=== PATIENT | female | born 1960 | race African-American/Black ===

== ENCOUNTER → 2017-01-05 | Outpatient (CLI) | payer BC ==
[~2017-01-05] MED LIST: ALBUAER2; HCTZ
--- NOTE | 2017-01-05 16:45 | MAMMOGRAPHY REPORT ---
BILATERAL DIGITAL SCREENING MAMMOGRAM TOMOSYNTHESIS WITH CAD: 01/05/2017 TECHNIQUE: Breast tomosynthesis in addition to standard 2D mammography was performed. Current study was also evaluated with a Computer Aided Detection (CAD) system. COMPARISON: Comparison is made to exams dated: 01/02/2016 mammogram, 10/22/2014 mammogram, 09/14/2012 mammogram, 09/21/2013 mammogram, 09/29/2011 mammogram - [facility], and 04/30/2009. BREAST COMPOSITION: The tissue of both breasts is heterogeneously dense, which may obscure small ma sses. FINDINGS: No suspicious masses, calcifications, or areas of architectural distortion are noted in e ither breast. There has been no significant interval change compared to prior exams. Bilateral nathaly gn-appearing masses in bilateral benign-appearing calcifications are not significantly changed. Mild architectural distortion seen within the left 12:00 breast appears stable compared to prior exams a nd likely represents postsurgical changes. IMPRESSION: ACR BI-RADS CATEGORY 2: BENIGN There is no mammographic evidence of malignancy. A 1 year screening mammogram is recommended. The p atient will receive written notification of the results. Approximately 10% of breast cancers are not detected with mammography. A negative mammographic repor t should not delay biopsy if a clinically suggestive mass is present. Tara Mayes M.D. ah/:01/05/2017 15:37:50 Preschool Assistant Director: Ruth MAYER)(Elisa), [facility] letter sent: Normal 1/2 BI-RADS Code: ACR BI-RADS Category 2: Benign
== END | disposition home or self-care (01) ==
LOC: C.MAMM 15:01
PROVIDERS: ATTEND Family Medicine
DX: Z12.31 Encounter for screening mammogram for malignant neoplasm of breast (principal)

== ENCOUNTER → 2018-01-06 | Outpatient (CLI) | payer BC ==
--- NOTE | 2018-01-07 14:57 | MAMMOGRAPHY REPORT ---
BILATERAL DIGITAL SCREENING MAMMOGRAM TOMOSYNTHESIS WITH CAD: 01/06/2018 TECHNIQUE: Breast tomosynthesis in addition to standard 2D mammography was performed. Current study was also evaluated with a Computer Aided Detection (CAD) system. COMPARISON: Comparison is made to exams dated: 01/05/2017 mammogram, 01/02/2016 mammogram, 10/22/2014 m ammogram, 09/21/2013 mammogram, 09/14/2012 mammogram, and 09/29/2011 mammogram - [facility]. BREAST COMPOSITION: The tissue of both breasts is heterogeneously dense, which may obscure small mas ses. FINDINGS: No suspicious masses, calcifications, or areas of architectural distortion are noted in ei ther breast. There has been no significant interval change compared to prior exams. Bilateral circum scribed benign-appearing masses and scattered bilateral benign-appearing calcifications are not signi ficantly changed. A linear scar marker denotes a scar on the left upper outer breast. Architectural distortion seen within the left 12:00 to 1:00 breast is stable and compatible with postsurgical yan ges. IMPRESSION: ACR BI-RADS CATEGORY 2: BENIGN There is no mammographic evidence of malignancy. A 1 year screening mammogram is recommended. The pa tient will receive written notification of the results. Approximately 10% of breast cancers are not detected with mammography. A negative mammographic report should not delay biopsy if a clinically suggestive mass is present. Tara Mayes M.D. /:01/06/2018 16:21:11 Core Manager: Dyan MAYER)(Elisa), [facility] letter sent: Normal 1/2 BI-RADS Code: ACR BI-RADS Category 2: Benign
== END | disposition home or self-care (01) ==
LOC: C.MAMM 14:59
PROVIDERS: ATTEND Physician Assistant
DX: Z12.31 Encounter for screening mammogram for malignant neoplasm of breast (principal)

== ENCOUNTER 2022-02-17 08:50 | Observation (INO) ==
--- NOTE | 2022-02-10 15:35 | Anesthesiology Consultation ---
Date of Service February 10, 2022 Assessment & Plan (1) Encounter for pre-operative examination: Chart Review Chart Review: Acceptable Risk for Surgery (pending preop Covid testing results ) and Patient NOT seen in Pre Admission Testing Per nursing assessment 02/10/2022, patient denies any recent travel. No known Covid infection in the past 90 days. Patient is not vaccinated for Covid. No known Covid positive exposures or Covid related symptoms. Preop Covid testing scheduled 02/13/22= will await results -S/P Left knee replacement(01/14/21): SAB at L3-L4, 1 attempt + PNB. No issues per anesthesia post-op progress note. History Surgery Operation Date: 02/17/22 11:10 Proposed Procedures p Right Total Knee Arthroplasty - Enrico Neri MD Height/Weight Height: 5 ft 5.5 in Weight: 106.594 kg Allergies Allergy/AdvReac Type Severity Reaction Status Date / Time almond Allergy Severe Anaphylaxis Verified 02/10/22 15:09 Penicillins AdvReac Intermediate Yeast Verified 02/10/22 15:09 infection (tongue) fiber glass Allergy Mild Rash Uncoded 02/10/22 15:09 Medications Home Medications Medication Instructions Recorded Confirmed Last Taken Wheeled Walker #1 ea 08/02/20 01/30/21 Unknown hydrochlorothiazide 25 mg tablet 25 mg PO QAM 10/16/20 02/10/22 05/03/21 multivitamin 1 tab PO QAM 10/16/20 02/10/22 05/03/21 naproxen 500 mg tablet 500 mg PO BID PRN 10/16/20 02/10/22 05/03/21 08:00 clindamycin HCl 300 mg capsule 600 mg PO ONCE PRN 05/03/21 02/10/22 Unknown Past Medical History Medical History Hypertension Osteoarthritis Prediabetes Stress incontinence Past Family History Family History Other No family history of adverse response to anesthesia Past Surgical History Surgical History H/O removal of cyst Breast History of colonoscopy History of mandibular surgery Lefort I (1988) > no jaw ROM limitations History of tooth extraction History of total knee replacement Left knee replacement (01/14/21): SAB at L3-L4, 1 attempt + PNB. No issues per anesthesia post-op progress note. Hx of lumpectomy Left (benign) Social History Smoking Status: Never smoker Hx Alcohol Use: Yes Alcohol type: beer alcohol intake frequency: a few times a week Hx Substance Use: No substance use type: does not use Lab Results Anesthesia Preop Results Results Anesthesia Widget: WBC 3.26 K/uL (4.8-10.8) L 02/09/22 Hgb 12.2 g/dL (12.0-16.0) 02/09/22 Hct 38.4 % (37-47) 02/09/22 Plt 261 K/uL (130-400) 02/09/22 Na 140 mmol/L (136-145) 02/09/22 K 3.7 mmol/L (3.5-5.1) 02/09/22 Cl 106 mmol/L (98-107) 02/09/22 CO2 27 mmol/L (21-32) 02/09/22 BUN 11 mg/dl (6-23) 02/09/22 Creat 0.81 mg/dl (0.6-1.2) 02/09/22 Glucose Level 92 mg/dl (70-99(Fasting)) 02/09/22 PT 11.2 Seconds (9.0-12.0) 02/09/22 INR 1.1 (0.9-1.1) 02/09/22 HA1c 5.7 % (4.5-5.6) H 02/09/22 Blood Type A Positive 02/09/22 Antibody Screen NEGATIVE 02/09/22 Testing Electrocardiogram Date: 11/04/21 SR with PACs at 83bpm. Otherwise normal EKG per cardio. Chest X-Ray Date: 11/04/21 Findings: + NAD
--- NOTE | 2022-02-14 12:16 | History and Physical Report ---
DATE OF ADMISSION: 02/17/2022 CHIEF COMPLAINT: Persistent right knee pain and discomfort. HISTORY OF PRESENT ILLNESS: The patient is a 61-year-old female who now presents for surgical treatm ent of her right knee. She has got a long history of knee problems and had her left knee replaced ju st a little over a year ago. She has done extremely well from this. She continues to be debilitated by right knee pain. This has been going on for 15+ years. It is global pain. She has a very limit ed walking tolerance to even a block or so. She has been through extensive conservative care, which really did not help at all anymore. She wants to proceed with right knee replacement. PAST MEDICAL HISTORY: Significant for: 1. Hypertension. 2. Obesity with BMI of 39. 3. Osteoarthritis. PAST SURGICAL HISTORY: Includes: 1. Left knee replacement done on 01/14/2021. 2. Cyst removed from her breast. 3. Oral surgery. ALLERGIES: ALMONDS, FIBERGLASS, PENICILLIN, WHICH CAUSES A YEAST INFECTION. CURRENT MEDICATIONS: Include: 1. Hydrochlorothiazide. 2. Naproxen. 3. Multivitamin. 4. Centrum Silver. SOCIAL HISTORY: Significant for a 61-year-old female. Lives in [place]. Two drinks per week. Does not smoke. FAMILY HISTORY: Noncontributory. REVIEW OF SYSTEMS: Negative for diabetes. She is a prediabetic per her report. No chest pain or sh ortness of breath. No history of DVT or PE. No known bleeding problems. PHYSICAL EXAMINATION: GENERAL: Shows a pleasant middle-aged female. Looks to be in reasonably good health. HEENT: Benign. NECK: Supple. No lymphadenopathy. LUNGS: Clear to auscultation. HEART: Regular rate and rhythm. ABDOMEN: Soft, nontender, nondistended. EXTREMITIES: Grossly neurovascularly intact except as follows: Examination of the right knee reveal s the patient walks with a markedly antalgic gait. She limps on this right side. She has got varus alignment to her knee with a varus thrust with weightbearing. She is diffusely tender around the kne e. Range of motion is about 10 degrees short of full extension to 100 degrees of flexion and quite s tiff. No pain with hip motion. Examination of the left knee reveals a well-healed incision. Anatomic alignment. Range of motion 0- 115. X-RAYS: X-rays of the right knee reveal advanced right knee tricompartmental DJD. She has advanced tricompartmental disease with complete destruction of the medial side of her knee with destruction in the medial tibial plateau and tibial femoral subluxation. She has got subchondral sclerosis. Left knee replacement looks to be in good position. ASSESSMENT: A 61-year-old female now a little over a year out from left knee replacement with advanc ed right knee degenerative joint disease. She has failed conservative care. She would like to proce ed with right knee replacement. PLAN: We will take him to the operating room and do right total knee replacement. The risks and addy efits of this procedure were explained to the patient and include, but not limited to DVT, PE, , infection, neurological injury, vascular injury, bleeding problem, pain, limited range of motion, st iffness, failure to relieve her symptoms, incomplete relief of symptoms, need for further surgery in the future, fracture, leg length inequality, nerve palsy, etc. The patient understands and desires t o proceed. Informed consent was obtained. She is planning on using [facility] program. She stopped her Naprosyn preoperatively. We may put some vancomycin in her cement due to her obesity and increased risk for infection. Job ID: [id number]
[~2022-02-17 08:50] MED LIST changes: +ACETAMINOPHEN 500 MG TAB PO SCH; -ALBUAER2; +BUPIVACAINE 0.5 % 5 MG/1 ML PF 10ML VIAL ONE; +BUPIVACAINE LIPOSOME/PF 266 MG, BUPIVACAINE/EPINEPHRINE 50 ML, SODIUM CHLORIDE 0.9% 30 ... INFIL SCH; +FAMOTIDINE 20 MG TAB PO SCH; +GABAPENTIN 600 MG DOSE PO SCH; -HCTZ; +LR 500ML BOLUS, THEN 15ML/HR IV SCH; +LR 60ML/HR IV SCH; +METOCLOPRAMIDE HCL 10 MG TABLET PO SCH; +Scopolamine 1 MG TDSY TD SCH; +TRANEXAMIC ACID 1,000 MG **IV Pre-op IV SCH
[2022-02-17] MEDS ORDERED: fentaNYL citrate 100 MCG/2 ML VIAL ONE (11:01)
[2022-02-17] MEDS ORDERED: ePHEDrine sulfate 50 MG/ML AMP IV PRN (11:01)
[2022-02-17] MEDS ORDERED: ATROPINE SULFATE 0.1 MG/ML 10ML SYR IV PRN (11:01)
[2022-02-17] MEDS ORDERED: MIDAZOLAM HCL 1 MG/ML 2ML VIAL ONE (11:01)
[2022-02-17] MEDS ORDERED: fentaNYL citrate 100 MCG/2 ML VIAL IV PRN (11:01)
[2022-02-17] MEDS ORDERED: ONDANSETRON INJ 2 MG/ML 2 ML VIAL IV PRN ×2 (11:01→14:49)
[2022-02-17] MEDS ORDERED: ceFAZolin 2000MG 2,000 MG/15 ML SYR IV ONE (12:17)
[2022-02-17] MEDS ORDERED: BUPIVACAINE/EPINEPHRINE 0.25% 1:200,000 30 ML VIAL ONE ×2 (12:18→12:19)
[2022-02-17] MEDS ORDERED: SODIUM CHLORIDE 0.9% PF 50 ML VIAL ONE (12:19)
[2022-02-17] MEDS ORDERED: BUPIVACAINE LIPOSOME 1.3% 266 MG/20 ML VIAL ONE (12:19)
--- NOTE | 2022-02-17 12:19 | History & Physical Bridge Note ---
Date of Service February 17, 2022 History & Physical Bridge Note I have examined the patient, reviewed the History & Physical and in the interval since the performance of the History & Physical I have noted the following changes of clinical significance: no changes noted
[2022-02-17] MEDS ORDERED: ceFAZolin 2,000 MG/15 ML IV PUSH IV ONE (12:22)
[2022-02-17] MEDS ORDERED: VANCOMYCIN HCL 1000MG/20ML VIAL ONE (12:52)
[2022-02-17] MEDS ORDERED: LIDOCAINE 2% 2 ML VIAL/AMP(20MG/ML) INFIL ONE (14:14)
[2022-02-17] MEDS ORDERED: PROPOFOL IV EMULSION 10 MG/ML 20 ML VIAL IV ONE (14:14)
[2022-02-17] MEDS ORDERED: ONDANSETRON INJ 2 MG/ML 2 ML VIAL ONE (14:20)
[2022-02-17] MEDS ORDERED: NALOXONE HCL 0.4 MG/1 ML VIAL/CARP IV PRN (14:49)
[2022-02-17] MEDS ORDERED: GLUCOSE 40% GEL 15 GM TUBE PO PRN (14:49)
[2022-02-17] MEDS ORDERED: GLUCAGON FOR INJ 1 MG VIAL SQ PRN (14:49)
[2022-02-17] MEDS ORDERED: diphenhydrAMINE Capsule 25 MG CAP PO PRN (14:49)
[2022-02-17] MEDS ORDERED: GLUCOSE 10 TABS/TUBE PO PRN (14:49)
[2022-02-17] MEDS ORDERED: HYDROmorphone INJ 0.5 MG/0.5 ML SYR IV PRN (14:49)
[2022-02-17] MEDS ORDERED: PHARMACY GLYCEMIC MGMT CONSULT PRN (14:49)
[2022-02-17] MEDS ORDERED: DEXTROSE 50% 50 ML SYRINGE IV PRN (14:49)
[2022-02-17] MEDS ORDERED: METOCLOPRAMIDE HCL INJ 5 MG/ML 2 ML VIAL IV PRN (14:49)
[2022-02-17] MEDS ORDERED: MAGNESIUM HYDROXIDE SUSP 30 ML UDC PO PRN (14:49)
[2022-02-17] MEDS ORDERED: ALUMINUM/MAGNESIUM SUSP 30 ML UDC PO PRN (14:49)
[2022-02-17] MEDS ORDERED: oxyCODONE HCL IR 5 MG TAB (IMMEDIATE RELEASE) PO PRN ×2 (14:49→18:16)
[2022-02-17] MEDS ORDERED: CARBOHYDRATES FOR HYPOGLYCEMIA PO PRN (14:49)
[2022-02-17] MEDS ORDERED: bisacodyL 10 MG SUPP PR PRN (14:49)
--- NOTE | 2022-02-17 15:02 | Operative Report ---
PG Post Operative Report Pre & Post Diagnosis Operation Date: 02/17/22 11:10 Pre-Op Diagnosis: Right Knee Osteoarthritis Post-Op Diagnosis: Right Knee Osteoarthritis I identified the patient and participated in the time-out.: Yes Procedure Operation Date: 02/17/22 11:10 Actual Procedures p Right Total Knee Replacement(Right) - Enrico Neri MD Surgeon Enrico Neri MD Orthotist/Prosthetist Jaziel Colin PA-C Estimated Blood Loss 50 Findings Consistent with Post-Op Diagnosis Operative findings revealed advanced right knee tricompartment DJD with severe degenerative changes grade 4 and erosive changes in all 3 compartments. She had osteophytes in all 3 compartments. She had significant wear of her medial tibial plateau with some destruction of the bone itself. Moderate to large knee joint effusion. Large soft tissue envelope. Fluids 1500 cc Specimens Right knee sent for pathology Anesthesia Type Spinal MAC Complications none Disposition Accompanied Patient To Recovery: No Indications Patient is a 61-year-old female has a long history of bilateral knee pain discomfort. She been through extensive conservative treatment of years which became less successful. She had her left knee replaced a year ago and is done remarkably well but continued be limited by right knee pain. She elected proceed with right total knee arthroplasty. Due to her large size and deformity we did elect to place a stem in her tibia. Due to her diabetes and obesity with use of vancomycin in the cement. Description of Procedure Operative implants consist of: 1. Biomet Vanguard size 65 right posterior stabilized femoral component. 2. Biomet size 71 tibial tray with a 16 x 80 mm stem with 5 mm offset and small cruciate wing. 3. 16mm posterior stabilized polyethylene insert. 4. 31 x 8 all polypatella. Patient was taken the operating, identified, placed on the operating table supine position protectors were properly padded IV antibiotics tried by anesthesia team. Spinal anesthetic and been implemented holding area. Gurrola cath was placed in sterile fashion. A right thigh turn was then placed in the right lower extremities and prepped and draped in usual sterile fashion. The right leg was elevate exsanguinated use exsanguinated with use of an Esmarch in terms playset 350 mmHg. An anterior approach to the right knee was then performed through longitudinal incision centered over the patella. Sharp dissection was got through subcutaneous this down the extensor mechanism. She had very large soft tissue envelope. A medial parapatellar arthrotomy incision was made. Some subperiosteal dissection was carried out medially. Mafenide was resected from each patella tendon. Lateral patellofemoral ligament was released. The patella subluxated laterally and the knee was flexed. The osteophytes were taken off distal femur. Her ACL was absent. The PCL was released from the distal femur and the tibia subluxated anteriorly. The tibial eminence was then resected. I then reamed her tibia up to a size 16. The reaming amena was left in place and the IM cutting guide was placed. The proximal tibial cut was made essentially flush with the most deficient aspect of the more medial tibial plateau. This did take a fairly large piece off laterally. The tibia was then sized to a size 71. The tibia was prepared for a 5 mm offset stem with a small cruciate wing. The tibial tray was assembled and placed in the canal and sent attention was then drawn to the femur. The distal femur examined with a sharp drill. Intramedullary canal was suction. A right 5 degree valgus cutting guide was placed but distal femoral cutting block was pinned in place but distal femoral cut was made to take an additional 3 mm bone off distal femur. The femur was then sized to a size 65. The AP cutting block was pinned parallel to the epicondylar axis which was 4 degrees of external rotation. The anterior neck, anterior chamfer, posterior cut, posterior chamfer cuts were made. The box cutting guide was placed in just slight lateral box cut was made. The knee was flexed. The remnants of the medial and lateral menisci were excised. The osteophytes taken off the posterior aspect of femur. Trial femoral component was placed. I then trialed the knee and the 16mm insert fit most appropriately. It was a slightly more lax in extension than flexion but felt to be acceptable. Attention is then drawn to the patella. The patella was cleaned of all soft tissues. Patella thickness measured 21 mm in thickness was cut down to 14. Was sized to a size 31 patella. The lug holes were drilled for 31 patella. The lateral osteophyte is moved. Patella button was placed and the knee was taken through range of motion. Patella tracked nicely with no thumbs test. Attention drawn to placing permanent components. All trial components were removed. Bone plug was placed in the distal femur limit blood loss. A double batch Palacos G cement was mixed. I did add an additional gram of vancomycin due to her diabetes and obesity. A Biomet size 65 right posterior stabilized femoral component, size 71 tibial tray with a 80 x 16 mm offset stem, 16 mm posterior stabilized polyethylene insert, and a 31 x 8 all polypatella then cemented in place. Knee was brought out into full extension until cement hardened. Final cement check was then performed. Pericapsular tissues were injected with total 100 cc of combination of 20 cc Exparel, 30 cc of normal saline, 50 cc of quarter percent Marcaine with epinephrine. Patient did receive 1 g tranexamic acid. The tourniquet was let down for final tourniquet time of 74 minutes. Hemostasis through the was assured using electrocautery. Extensor mechanism closed with combination 1 PDS suture #1 Vicryl suture in [id number] fashion with extensor mechanism checked found to be intact and subcutaneous tissue then closed with 2 Dexon suture in buried interrupted fashion skin was closed skin hemant. Leg was then cleaned and dried a sterile dressing with Xeroform, 4 x 4's, sterile cast padding, Harlan bandage were applied. Patient then transferred to the recovery room in stable condition. Patient tolerated procedure well and there were no complications. Jaziel Colin, my physician pathologist assistant, was present for the entire procedure. His assistance was essential and required for appropriate patient positioning, prepping and draping, surgical exposure, performing the technical details of the operation, placement the implants, closure of the wound, and placement of the sterile bandage. I attest to the content of the Intraoperative Record and any orders documented therein. Any exceptions are noted below.
--- NOTE | 2022-02-17 15:25 | XRay Report ---
XR knee RT 1 or 2V routine CLINICAL HISTORY: Surgical Post Op TECHNIQUE: 2 views of the right knee were obtained. Comparison: None available at the time of this dictation. FINDINGS: Patient is status post total knee arthroplasty with expected postsurgical changes including soft tiss ue swelling, subcutaneous emphysema, and surgical staple placement. No periarticular lucency or hardw are fracture is seen. Joint spaces are well-preserved. No joint effusion is seen. No soft tissue abno rmality is seen. IMPRESSION: No evidence of acute osseous injury. ACT 112: Negative or not required by law. Electronically signed by: Mihai Echavarria M.D. 02/17/2022 3:23 PM
--- NOTE | 2022-02-17 16:27 | Anesthesiology Progress Note ---
Date of Service February 17, 2022 Anesthesia Post Procedure Vital Signs Vital Signs: Temp Pulse Pulse Resp BP BP Pulse Ox 02/17/22 16:15 73 16 147/93 H 96 02/17/22 16:05 63 14 137/83 97 02/17/22 15:55 64 17 140/77 94 02/17/22 15:45 36.1 C L 69 16 140/81 94 02/17/22 15:35 67 16 145/85 H 96 02/17/22 15:25 76 19 126/82 95 02/17/22 15:15 66 16 130/84 95 02/17/22 15:05 76 18 133/79 92 02/17/22 14:55 77 21 122/75 91 02/17/22 14:49 36.5 C 77 16 117/65 97 02/17/22 09:28 36.7 C 88 20 128/82 99 Transfer of Care Handoff Completed per policy Notes Mental Status: alert / awake / arousable and participated in evaluation Patient Amnestic to Procedure: Yes Nausea / Vomiting: adequately controlled Pain: adequately controlled Airway Patency, RR, SpO2: stable & adequate BP & HR: stable & adequate Hydration State: stable & adequate Anesthetic Complications: no major complications apparent
[2022-02-17] MEDS: SODIUM CHLORIDE 0.9% 1000ML 1,000 ML IV SCH ×3 (17:38→23:13)
[2022-02-17] MEDS: KETOROLAC 30 MG/ML VIAL IV SCH (18:18)
[2022-02-17] MEDS: Scopolamine CHECK PATCH PLACEMENT SCH (18:18)
[2022-02-17] MEDS ORDERED: ONDANSETRON 4 MG OD TAB PO PRN (18:56)
[2022-02-17] MEDS ORDERED: TRANEXAMIC ACID / 0.7% NACL 1,000 MG/100 ML BAG IV SCH (21:00)
[2022-02-17] MEDS ORDERED: SENNA 8.6 MG TAB PO SCH (21:00)
[2022-02-17] MEDS ORDERED: ASPIRIN 81 MG ECTAB PO SCH (21:00)
[2022-02-17] MEDS: ceFAZolin 2000MG 2,000 MG/15 ML SYR IV SCH (21:01)
[2022-02-17] MEDS: ASPIRIN 81 MG ECTAB PO SCH (21:01)
[2022-02-17] MEDS: DOCUSATE SODIUM 100 MG CAP PO SCH (21:02)
[2022-02-17] MEDS: ASCORBIC ACID 500 MG TAB PO SCH (21:02)
[2022-02-17] MEDS: TAPENTADOL HCL ER 50 MG TABCR PO SCH (21:06)
[2022-02-17] MEDS: ACETAMINOPHEN 500 MG TAB PO SCH (23:12)
[2022-02-18] MEDS: KETOROLAC 30 MG/ML VIAL IV SCH ×3 (00:18→11:55)
[2022-02-18] MEDS: Scopolamine CHECK PATCH PLACEMENT SCH ×2 (00:19→08:49)
[2022-02-18] MEDS: ceFAZolin 2000MG 2,000 MG/15 ML SYR IV SCH (05:42)
[2022-02-18] MEDS: SODIUM CHLORIDE 0.9% 1000ML 1,000 ML IV SCH (05:42)
[2022-02-18] MEDS: ACETAMINOPHEN 500 MG TAB PO SCH ×2 (05:43→13:57)
[2022-02-18 07:56] LABS: Hemoglobin 9.6 g/dL (12.0-16.0); Mean Corpuscular Hemoglobin 28.1 pg (25-34); Mean Corpuscular Volume 87.7 fL (80-100); Mean Platelet Volume 11.6 fL (7.4-10.4); Platelet Count 185 K/uL (130-400); RDW Coefficient of Variation 14.8 % (11.5-14.5); RDW Standard Deviation 47.4 fL (36.4-46.3); Red Blood Count 3.42 M/uL (4.2-5.4); White Blood Count 5.62 K/uL (4.8-10.8)
[2022-02-18 08:23] LABS: BUN Creatinine Ratio 21.2 (10-20); Creatinine Clr Calc Pharmacy 90.2 ml/min; Est GFR (African American) 86.3 ml/min; Est GFR (Non-African American) 74.5 ml/min; Potassium 3.8 mmol/L (3.5-5.1)
[2022-02-18] MEDS: ASPIRIN 81 MG ECTAB PO SCH (08:47)
[2022-02-18] MEDS: DOCUSATE SODIUM 100 MG CAP PO SCH (08:47)
[2022-02-18] MEDS: ASCORBIC ACID 500 MG TAB PO SCH (08:48)
[2022-02-18] MEDS: TAPENTADOL HCL ER 50 MG TABCR PO SCH (08:50)
[2022-02-18] MEDS ORDERED: DOCUSATE SODIUM/SENNA 50/8.6MG TAB PO SCH (09:00)
[2022-02-18] MEDS ORDERED: hydroCHLOROthiazide 25 MG TAB PO SCH (09:00)
[2022-02-18] MEDS ORDERED: MULTIVITAMIN TAB PO SCH (09:00)
[2022-02-18] MEDS ORDERED: NON-FORMULARY MEDICATION (Multivitamin Tablet) PO SCH (09:00)
--- NOTE | 2022-02-18 15:24 | Progress Notes ---
DATE OF SERVICE: 02/18/2022. SUBJECTIVE: A 61-year-old female postoperative day 1 from right knee replacement. She is doing pret ty well. She denies any pain, just some soreness. No chest pain or shortness of breath. Therapy we nt well. She is hoping to go home. OBJECTIVE: VITAL SIGNS: Temperature 36.8. Vital signs are stable. GENERAL: Shows a pleasant middle-aged female. She is sitting up in her bedside chair, looks quite c omfortable. LUNGS: Clear to auscultation. HEART: Regular rate and rhythm. ABDOMEN: Soft, nontender, nondistended. EXTREMITIES: Grossly neurovascularly intact except as follows. Examination of the right lower extremity reveals the dressing to be clean, dry and intact. She can d orsiflex and plantarflex her foot appropriately. She is neurologically intact. LABORATORY DATA: Hemoglobin 9.6. Hematocrit 30.0. Electrolytes are stable. ASSESSMENT: A 61-year-old female postoperative day 1 from right knee replacement, doing pretty well. Pain is controlled. She is neurologically intact. PLAN: 1. DVT prophylaxis includes thigh-high TEDs, SCDs, and aspirin twice a day. 2. PT/OT. She can weight bear as tolerated. Right total knee protocol. 3. Pain control, doing well with current pain regimen. 4. Disposition: Plan to discharge to home with some home health later today. Job ID: [id number]
--- NOTE | 2022-02-23 07:49 | Discharge Summary ---
Date of Service February 23, 2022 Discharge Data Procedures Performed Operation Date: 02/17/22 11:10 Actual Procedures p Right Total Knee Replacement(Right) - Enrico Neri MD Hospital Course (1) Status post total right knee replacement: This is a 61 year old patient admitted on 02/17/22 and underwent total knee arthroplasty. She tolerated the procedure well and there were no complications. Transferred to the PACU post op and later to the orthopedic floor for further care. She was given ancef for antibiotic prophylaxis. She was also given FERNANDO stockings, SCDs, and aspirin for DVT prophylaxis. Hemoglobin, hematocrit, and vital signs were monitored during her hospital stay and remained stable. Did not require any blood transfusions. There were no complications during her hospital stay. By post op day #1 the patient was tolerating a diabetic diet, pain was reasonably controlled with oral pain medicine, and she was participating in physical therapy. On post op day #1 the patient was discharged home and set up with home health care. She was given printed discharge instructions including prescriptions for extra strength tylenol, aspirin, toradol, zofran, and oxycod one. Continue physical therapy, weight bearing as tolerated. Continue FERNANDO stockings. Follow up approximately 2 weeks post op or sooner if there are problems or concerns. Coding Level of Care Code None Diagnoses Status post total right knee replacement Z96.651
== END 2022-02-18 16:49 | disposition home health service (06) ==
LOC: PACUINP 08:50 → ASU 08:50 → 3W 17:24
DX: Z91.018 Allergy to other foods; M17.11 Unilateral primary osteoarthritis, right knee; Z79.899 Other long term (current) drug therapy; Z91.048 Other nonmedicinal substance allergy status; I10 Essential (primary) hypertension

== ENCOUNTER 2024-11-20 19:41 | Inpatient (IN) ==
[2024-11-20] MEDS: SODIUM CHLORIDE 0.9% 1,000 ML IV ONE (20:23)
[2024-11-20 21:04] LABS: Albumin Globulin Ratio 0.9 (0.9-2); Albumin Level 3.7 gm/dl (3.4-5.0); BUN Creatinine Ratio 10.5 (10-20); Bilirubin,Total 11.3 mg/dl (0.2-1.0); Calcium 9.3 mg/dl (8.6-10.3); Creatinine Clr Calc Pharmacy 69.7 ml/min; Globulin 4.3 gm/dl (2.5-4.0); Magnesium 1.6 mg/dl (1.7-2.4); Potassium 3.4 mmol/L (3.5-5.1)
[2024-11-20 21:07] LABS: Basophils # (auto) 0.02 K/uL (0.00-0.20); Basophils % (auto) 0.5 %; Eosinophils # (auto) 0.11 K/uL (0.00-0.50); Hematocrit (blood only) 36.3 % (37.0-47.0); Immature Granulocytes # (auto) 0.01 K/uL (0.01-0.20); Immature Granulocytes % (auto) 0.3 %; Lymphocytes # (auto) 1.11 K/uL (1.20-3.40); Mean Corpuscular Hemoglobin 29.1 pg (25.0-34.0); Mean Corpuscular Hgb Conc 33.1 g/dL (32.0-36.0); Mean Corpuscular Volume 87.9 fL (80.0-100.0); Mean Platelet Volume 13.4 fL (9.4-12.4); Monocytes # (auto) 0.38 K/uL (0.11-0.59); Monocytes % (auto) 10.3 %; Neutrophils # (auto) 2.07 K/uL (1.40-6.50); Neutrophils % (auto) 55.9 %; Platelet Count 183 K/uL (130-400); RDW Coefficient of Variation 15.4 % (11.5-14.5); RDW Standard Deviation 49.7 fL (36.4-46.3); Red Blood Count 4.13 M/uL (4.20-5.40)
[2024-11-20] MEDS ORDERED: GLUCAGON FOR INJ 1 MG VIAL SQ PRN (21:10)
[2024-11-20] MEDS ORDERED: DEXTROSE 50% 50 ML SYRINGE IV PRN (21:10)
[2024-11-20] MEDS ORDERED: STAT IV Infusion **Titration per Protocol STA (21:10)
[2024-11-20] MEDS ORDERED: CARBOHYDRATES FOR HYPOGLYCEMIA PO PRN (21:10)
[2024-11-20] MEDS ORDERED: GLUCOSE 40% GEL 15 GM TUBE PO PRN (21:10)
[2024-11-20] MEDS ORDERED: GLUCOSE 10 TAB/TUBE PO PRN (21:10)
[2024-11-20] MEDS ORDERED: INSULIN REGULAR 250 UNITS in SODIUM CHLORIDE 0.9% 247.5 ML IV SCH (21:15)
[2024-11-20 21:25] LABS: Adenovirus PCR Not Detected (NotDetected); Bordetella parapertussis PCR Not Detected (NotDetected); Bordetella pertussis PCR Not Detected (NotDetected); Chlamydia pneumoniae PCR Not Detected (NotDetected); Coronavirus 229E PCR Not Detected (NotDetected); Coronavirus CoV-2 (COVID19)PCR Not Detected (NotDetected); Coronavirus HKU1 PCR Not Detected (NotDetected); Coronavirus NL63 PCR Not Detected (NotDetected); Coronavirus OC43PCR Not Detected (NotDetected); Human Metapneumovirus PCR DETECTED (NotDetected); Influenza A PCR Not Detected (NotDetected); Influenza B PCR Not Detected (NotDetected); Mycoplasma pneumoniae PCR Not Detected (NotDetected); Parainfluenza Virus 1 PCR Not Detected (NotDetected); Parainfluenza Virus 2 PCR Not Detected (NotDetected); Parainfluenza Virus 3 PCR Not Detected (NotDetected); Parainfluenza Virus 4 PCR Not Detected (NotDetected); Respiratory Syncytial VirusPCR Not Detected (NotDetected); Rhinovirus/Enterovirus PCR Not Detected (NotDetected)
[2024-11-20] MEDS ORDERED: NovoLIN-R BOLUS FROM BAG IV ONE (21:30)
[2024-11-20 21:57] LABS: Base Excess VBG -0.7 mEq/L; HCO3 VBG 26 mmol/L; Oxygen Saturation VBG < 60.0 %; PCO2 VBG 49 mmHg (38-50); PO2 VBG 36 mmHg; pH VBG 7.33 (7.36-7.41)
--- NOTE | 2024-11-20 22:00 | Emergency Department Note ---
Impression & Plan Diabetes, Transaminitis, Hyperbilirubinemia, Acute hypokalemia, Hypomagnesemia, Infection due to human metapneumovirus (hMPV) ED Provider Note HISTORY OF PRESENT ILLNESS: Patient is a 64-year-old female presenting with hyperglycemia. Patient was seen at her primary care provider's office today. She states that for the last month she has been feeling generally unwell. She is lost about 40 pounds in the last month. She has recurrent episodes of diarrhea and frequent urination. Reports that she has just been feeling generally rundown. She was called by her doctor today after having lab work done after her appointment and told that her blood sugar was very high and she should present to the emergency department. Patient denies any vomiting but does report persistent nausea. Denies any chest pain or significant shortness of breath. She states that she has had diffuse abdominal cramping over the last month. She denies any history of abdominal surgeries. She denies any history of diabetes. ROS: as above PHYSICAL EXAM: Constitutional: Patient appears in no acute distress. HENT: Head: Normocephalic and atraumatic. Eyes: EOMI, PERRL Mouth/Throat: Mucous membranes moist. Neck: Trachea midline. Neck supple. Cardiovascular: Tachycardic with regular rhythm. No murmurs, rubs or gallops. Intact distal pulses. Pulmonary/Chest: No respiratory distress. Breath sounds clear and equal bilaterally. No wheezes or rales. Abdominal: Abdomen soft, no tenderness, rebound or guarding. Musculoskeletal: No edema, tenderness or deformity noted. Skin: Warm and dry. No rash, erythema, pallor or cyanosis Psychiatric: Appropriate mood and affect for situation. Neurological: Alert and keenly responsive. CN II-XII grossly intact, moving all extremities equally and fully. MDM: - Vitals signs showed hypertension and tachycardia. - History obtained via patient. History as above. - Chronic conditions affecting care: HTN - Differential diagnoses include, but are not limited to: DKA; HHS; diabetes; electrolyte abnormality; UTI; viral syndrome - Order placed for continuous cardiac monitoring. At this time, monitor showed rate of 87 bpm with normal sinus rhythm, per my interpretation. - External medical records reviewed. Family practice office visit note dated today was reviewed. Patient was seen for significant weight loss in the last month. Noted to have nausea and increased bowel movements. Reports she was itchy all over. She had laboratory workup performed and a KUB ordered, but that could not be performed until a later date. - Laboratory workup interpreted by myself showed leukopenia (WBC 3.70); normal phosphorous; slight hyponatremia (Na 133); slight hypokalemia (K 3.4); hyperglycemia (glucose 442); hypomagnesemia (Mg 1.6); transaminitis (AST 70; ALT 108); hyperbilirubinemia (total bilirubin 11.3); elevated lactate (2.1) - VBG shows very minimal acidosis with pH 7.33. However, the patient has a normal anion gap. - Given 1L plasmalyte and 1L NS in ER. Given 10 mEq IV potassium. Given 1g IV magnesium - Repeat lactate down to 1.1 - CT abdomen/pelvis with IV contrast ordered, given patient's elevated liver function test and elevated total bilirubin. Patient has no reproducible abdominal pain on examination. - CT abdomen/pelvis with IV contrast showed distended gallbladder and intra and extrahepatic biliary ductal dilatation. Pancreatic duct is also dilated. Noted to have some abnormality in the pancreatic head and mass cannot be excluded. Recommended MRCP. - Gallbladder US showed distended gallbladder with sludge and a small calculus. Noted have a 3 mm polyp within the gallbladder. Common bile duct is dilated at 1.8 cm. Pancreatic duct is dilated at 8 mm. No obvious stone noted. Negative Renteria sign. - Patient is not septic and has no reproducible abdominal pain. However, IV Zosyn was ordered for potential infectious etiology. - Viral respiratory panel positive for human metapneumovirus. - Given patient's new onset diabetes as well as her electrolyte abnormalities, did discuss admission with the hospitalist service. Though she does have obstructive etiology on her liver function tests and elevated total bilirubin, no obvious stone. Do not feel that the patient requires an emergent ERCP at this time. Can obtain the MRCP on the inpatient setting. - Discussion was had with rn case manager hospice about patient's case and need for admission - Hospitalist, Dr. Noguera, consulted for admission - Patient admitted to [facility] hospitalist service for further evaluation and management. 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 Left knee pain Status post total left knee replacement Right knee DJD Medical History Encounter for pre-operative examination Encounter for pre-operative examination Hypertension Osteoarthritis Prediabetes Stress incontinence Surgical History H/O removal of cyst History of colonoscopy History of mandibular surgery History of tooth extraction History of total knee replacement Hx of lumpectomy Family History Other No family history of adverse response to anesthesia Social History Smoking Status: Never smoker Second Hand Exposure: Yes ( A CHILD); Do You Dip or Chew Tobacco: No; Hx Alcohol Use: Yes Alcohol type: beer Hx Substance Use: No Preferred Language: Sri Lankan Communication Ability: Effective Flap Lining Binder Required: No Beliefs That Will Affect Care: None marital status: Single Current Living Situation: Alone How many Children do You have: 0 Feels Safe at Home: Yes Assistive Devices: Cane and Walker Allergies Allergies Allergy/AdvReac Type Severity Reaction Status Date / Time almond Allergy Severe Anaphylaxis Verified 04/03/22 08:32 Penicillins AdvReac Intermediate Yeast Verified 04/03/22 08:32 infection (tongue) fiber glass Allergy Mild Rash Uncoded 04/03/22 08:32 Home Meds Home Medications Medication Instructions Recorded Confirmed hydrochlorothiazide 25 mg tablet 25 mg PO QAM 10/16/20 11/21/24 multivitamin 1 tab PO QAM 10/16/20 11/21/24 Results & Data (ED) Vital Signs Vital Signs - 24 hr 11/20/24 19:54 11/20/24 22:11 11/20/24 22:20 Temperature 36.6 C Temperature Source Temporal Artery Scan Pulse Rate 129 H 82 77 Pulse Rate [Apical] Pulse Rate from SpO2 Sensor Pulse Rhythm Regular Pulse Strength Normal Respiratory Rate 18 20 Respiratory Effort / Characteristics Non-Labored Spontaneous Respiratory Depth Normal Respiratory Pattern Regular Blood Pressure 153/88 H 150/88 H Blood Pressure [Right Arm] Blood Pressure Mean 109 132 Blood Pressure Mean [Right Arm] Blood Pressure Position Sitting Pulse Oximetry 99 Oxygen Delivery Method Room Air Sepsis Recent Fever Within 48 Hours No Sepsis New/Unexplained Change in Mental Status N/A Sepsis Action Taken by Nursing No Action Required 11/20/24 22:30 11/20/24 23:01 11/20/24 23:30 Temperature Temperature Source Pulse Rate 94 H 94 H 90 Pulse Rate [Apical] Pulse Rate from SpO2 Sensor Pulse Rhythm Pulse Strength Respiratory Rate 24 25 H 26 H Respiratory Effort / Characteristics Respiratory Depth Respiratory Pattern Blood Pressure 161/96 H 130/90 143/107 H Blood Pressure [Right Arm] Blood Pressure Mean 117 96 117 Blood Pressure Mean [Right Arm] Blood Pressure Position Pulse Oximetry 95 94 Oxygen Delivery Method Sepsis Recent Fever Within 48 Hours Sepsis New/Unexplained Change in Mental Status Sepsis Action Taken by Nursing 11/21/24 00:00 11/21/24 00:30 11/21/24 01:00 Temperature Temperature Source Pulse Rate 84 78 87 Pulse Rate [Apical] Pulse Rate from SpO2 Sensor 84 Pulse Rhythm Pulse Strength Respiratory Rate 21 22 21 Respiratory Effort / Characteristics Respiratory Depth Respiratory Pattern Blood Pressure 145/91 H 147/88 H 165/95 H Blood Pressure [Right Arm] Blood Pressure Mean 109 113 118 Blood Pressure Mean [Right Arm] Blood Pressure Position Pulse Oximetry 93 93 94 Oxygen Delivery Method Sepsis Recent Fever Within 48 Hours Sepsis New/Unexplained Change in Mental Status Sepsis Action Taken by Nursing 11/21/24 02:28 Temperature Temperature Source Pulse Rate Pulse Rate [Apical] 87 Pulse Rate from SpO2 Sensor Pulse Rhythm Pulse Strength Respiratory Rate 14 Respiratory Effort / Characteristics Respiratory Depth Respiratory Pattern Blood Pressure Blood Pressure [Right Arm] 145/78 H Blood Pressure Mean Blood Pressure Mean [Right Arm] 100 Blood Pressure Position Pulse Oximetry 97 Oxygen Delivery Method Room Air Sepsis Recent Fever Within 48 Hours Sepsis New/Unexplained Change in Mental Status Sepsis Action Taken by Nursing Laboratory Data 11/20/24 20:24 11/20/24 20:24 Lab Results 11/20/24 11/20/24 11/20/24 Range/Units 19:56 20:24 21:26 WBC 3.70 L (4.8-10.8) K/ul RBC 4.13 L (4.20-5.40) M/uL Hgb 12.0 (12.0-16.0) g/dl Hct 36.3 L (37.0-47.0) % MCV 87.9 (80.0-100.0) fL MCH 29.1 (25.0-34.0) pg MCHC 33.1 (32.0-36.0) g/dL RDW Std Deviation 49.7 H (36.4-46.3) fL RDW Coeff of Shyann 15.4 H (11.5-14.5) % Plt Count 183 (130-400) K/uL MPV 13.4 H (9.4-12.4) fL Immature Gran % (Auto) 0.3 % Neut % (Auto) 55.9 % Lymph % (Auto) 30.0 % [place] % (Auto) 10.3 % Eos % (Auto) 3.0 % Baso % (Auto) 0.5 % Neut # (Auto) 2.07 (1.40-6.50) K/uL Lymph # (Auto) 1.11 L (1.20-3.40) K/uL [place] # (Auto) 0.38 (0.11-0.59) K/uL Eos # (Auto) 0.11 (0.00-0.50) K/uL Baso # (Auto) 0.02 (0.00-0.20) K/uL Immature Gran # (Auto) 0.01 (0.01-0.20) K/uL VBG pH (7.36-7.41) VBG pCO2 (38-50) mmHg VBG pO2 mmHg VBG HCO3 mmol/L VBG O2 Saturation % VBG Base Excess mEq/L Sodium 133 L (136-145) mmol/L Potassium 3.4 L (3.5-5.1) mmol/L Chloride 99 (98-107) mmol/L Carbon Dioxide 26 (21-32) mmol/L Anion Gap 8 (3-11) BUN 10 (6-23) mg/dl Creatinine 0.95 (0.6-1.2) mg/dl Est Cr Clr Drug Dosing 69.7 ml/min eGFR 67.32 BUN/Creatinine Ratio 10.5 (10-20) Glucose 442 H* (70-99(Fasting)) mg/dl POC Glucose 450 H* 360 H* (70-99) mg/dl Lactate (0.4-2.0) mmol/L Calcium 9.3 (8.6-10.3) mg/dl Phosphorus (2.5-4.9) mg/dl Magnesium 1.6 L (1.7-2.4) mg/dl Total Bilirubin 11.3 H (0.2-1.0) mg/dl AST 70 H (13-39) U/L ALT 108 H (7-52) U/L Alkaline Phosphatase 287 H (34-104) U/L Total Protein 8.0 (6.0-8.3) gm/dl Albumin 3.7 (3.4-5.0) gm/dl Globulin 4.3 H (2.5-4.0) gm/dl Albumin/Globulin Ratio 0.9 (0.9-2) Lipase (11-82) U/L Urine Color Urine Appearance (Clear) Urine pH (4.5-7.5) Ur Specific Carbon (1.000-1.030) Urine Protein (Negative) Urine Glucose (UA) (Negative) Urine Ketones (Negative) Urine Blood (Negative) Urine Nitrite (Negative) Urine Bilirubin (Negative) Urine Urobilinogen (Negative) Ur Leukocyte Esterase (Negative) Urine WBC (Auto) (0-5) /hpf Urine RBC (Auto) (0-2) /hpf U Hyaline Cast (Auto) (0-2) /lpf U Epithel Cells (Auto) (0-2) /hpf Urine Bacteria (Auto) (None Seen) Adenovirus (PCR) Not Detected (NotDetected) B. pertussis DNA (PCR) Not Detected (NotDetected) B.parapertussis DNA PCR Not Detected (NotDetected) C. pneumoniae DNA (PCR) Not Detected (NotDetected) Coronavirus OC43 (PCR) Not Detected (NotDetected) Coronavirus HKU1 (PCR) Not Detected (NotDetected) Coronavirus 229E (PCR) Not Detected (NotDetected) SARS-CoV-2 (PCR) Not Detected (NotDetected) Coronavirus NL63 (PCR) Not Detected (NotDetected) Human Metapneumovir PCR DETECTED A (NotDetected) Influenza Type A (PCR) Not Detected (NotDetected) Influenza Type B (PCR) Not Detected (NotDetected) M. pneumoniae (PCR) Not Detected (NotDetected) Parainfluenza 1 (PCR) Not Detected (NotDetected) Parainfluenza 2 (PCR) Not Detected (NotDetected) Parainfluenza 3 (PCR) Not Detected (NotDetected) Parainfluenza 4 (PCR) Not Detected (NotDetected) RSV (PCR) Not Detected (NotDetected) Entero/Rhino (PCR) Not Detected (NotDetected) 11/20/24 11/20/24 11/21/24 Range/Units 21:50 23:43 00:23 WBC (4.8-10.8) K/ul RBC (4.20-5.40) M/uL Hgb (12.0-16.0) g/dl Hct (37.0-47.0) % MCV (80.0-100.0) fL MCH (25.0-34.0) pg MCHC (32.0-36.0) g/dL RDW Std Deviation (36.4-46.3) fL RDW Coeff of Shyann (11.5-14.5) % Plt Count (130-400) K/uL MPV (9.4-12.4) fL Immature Gran % (Auto) % Neut % (Auto) % Lymph % (Auto) % [place] % (Auto) % Eos % (Auto) % Baso % (Auto) % Neut # (Auto) (1.40-6.50) K/uL Lymph # (Auto) (1.20-3.40) K/uL [place] # (Auto) (0.11-0.59) K/uL Eos # (Auto) (0.00-0.50) K/uL Baso # (Auto) (0.00-0.20) K/uL Immature Gran # (Auto) (0.01-0.20) K/uL VBG pH 7.33 L (7.36-7.41) VBG pCO2 49 (38-50) mmHg VBG pO2 36 mmHg VBG HCO3 26 mmol/L VBG O2 Saturation < 60.0 % VBG Base Excess -0.7 mEq/L Sodium (136-145) mmol/L Potassium (3.5-5.1) mmol/L Chloride (98-107) mmol/L Carbon Dioxide (21-32) mmol/L Anion Gap (3-11) BUN (6-23) mg/dl Creatinine (0.6-1.2) mg/dl Est Cr Clr Drug Dosing ml/min eGFR BUN/Creatinine Ratio (10-20) Glucose (70-99(Fasting)) mg/dl POC Glucose (70-99) mg/dl Lactate 2.1 H* 1.1 (0.4-2.0) mmol/L Calcium (8.6-10.3) mg/dl Phosphorus 2.9 (2.5-4.9) mg/dl Magnesium (1.7-2.4) mg/dl Total Bilirubin (0.2-1.0) mg/dl AST (13-39) U/L ALT (7-52) U/L Alkaline Phosphatase (34-104) U/L Total Protein (6.0-8.3) gm/dl Albumin (3.4-5.0) gm/dl Globulin (2.5-4.0) gm/dl Albumin/Globulin Ratio (0.9-2) Lipase 316 H (11-82) U/L Urine Color Dark Yellow Urine Appearance Clear (Clear) Urine pH 5.5 (4.5-7.5) Ur Specific Carbon 1.018 (1.000-1.030) Urine Protein Trace H (Negative) Urine Glucose (UA) 3+ H (Negative) Urine Ketones Negative (Negative) Urine Blood Negative (Negative) Urine Nitrite Positive A (Negative) Urine Bilirubin 2+ H (Negative) Urine Urobilinogen Negative (Negative) Ur Leukocyte Esterase Negative (Negative) Urine WBC (Auto) 0-5 (0-5) /hpf Urine RBC (Auto) 0-2 (0-2) /hpf U Hyaline Cast (Auto) 3-5 H (0-2) /lpf U Epithel Cells (Auto) 0-2 (0-2) /hpf Urine Bacteria (Auto) 4+ H (None Seen) Adenovirus (PCR) (NotDetected) B. pertussis DNA (PCR) (NotDetected) B.parapertussis DNA PCR (NotDetected) C. pneumoniae DNA (PCR) (NotDetected) Coronavirus OC43 (PCR) (NotDetected) Coronavirus HKU1 (PCR) (NotDetected) Coronavirus 229E (PCR) (NotDetected) SARS-CoV-2 (PCR) (NotDetected) Coronavirus NL63 (PCR) (NotDetected) Human Metapneumovir PCR (NotDetected) Influenza Type A (PCR) (NotDetected) Influenza Type B (PCR) (NotDetected) M. pneumoniae (PCR) (NotDetected) Parainfluenza 1 (PCR) (NotDetected) Parainfluenza 2 (PCR) (NotDetected) Parainfluenza 3 (PCR) (NotDetected) Parainfluenza 4 (PCR) (NotDetected) RSV (PCR) (NotDetected) Entero/Rhino (PCR) (NotDetected) 11/21/24 Range/Units 02:30 WBC (4.8-10.8) K/ul RBC (4.20-5.40) M/uL Hgb (12.0-16.0) g/dl Hct (37.0-47.0) % MCV (80.0-100.0) fL MCH (25.0-34.0) pg MCHC (32.0-36.0) g/dL RDW Std Deviation (36.4-46.3) fL RDW Coeff of Shyann (11.5-14.5) % Plt Count (130-400) K/uL MPV (9.4-12.4) fL Immature Gran % (Auto) % Neut % (Auto) % Lymph % (Auto) % [place] % (Auto) % Eos % (Auto) % Baso % (Auto) % Neut # (Auto) (1.40-6.50) K/uL Lymph # (Auto) (1.20-3.40) K/uL [place] # (Auto) (0.11-0.59) K/uL Eos # (Auto) (0.00-0.50) K/uL Baso # (Auto) (0.00-0.20) K/uL Immature Gran # (Auto) (0.01-0.20) K/uL VBG pH (7.36-7.41) VBG pCO2 (38-50) mmHg VBG pO2 mmHg VBG HCO3 mmol/L VBG O2 Saturation % VBG Base Excess mEq/L Sodium (136-145) mmol/L Potassium (3.5-5.1) mmol/L Chloride (98-107) mmol/L Carbon Dioxide (21-32) mmol/L Anion Gap (3-11) BUN (6-23) mg/dl Creatinine (0.6-1.2) mg/dl Est Cr Clr Drug Dosing ml/min eGFR BUN/Creatinine Ratio (10-20) Glucose (70-99(Fasting)) mg/dl POC Glucose 332 H* (70-99) mg/dl Lactate (0.4-2.0) mmol/L Calcium (8.6-10.3) mg/dl Phosphorus (2.5-4.9) mg/dl Magnesium (1.7-2.4) mg/dl Total Bilirubin (0.2-1.0) mg/dl AST (13-39) U/L ALT (7-52) U/L Alkaline Phosphatase (34-104) U/L Total Protein (6.0-8.3) gm/dl Albumin (3.4-5.0) gm/dl Globulin (2.5-4.0) gm/dl Albumin/Globulin Ratio (0.9-2) Lipase (11-82) U/L Urine Color Urine Appearance (Clear) Urine pH (4.5-7.5) Ur Specific Carbon (1.000-1.030) Urine Protein (Negative) Urine Glucose (UA) (Negative) Urine Ketones (Negative) Urine Blood (Negative) Urine Nitrite (Negative) Urine Bilirubin (Negative) Urine Urobilinogen (Negative) Ur Leukocyte Esterase (Negative) Urine WBC (Auto) (0-5) /hpf Urine RBC (Auto) (0-2) /hpf U Hyaline Cast (Auto) (0-2) /lpf U Epithel Cells (Auto) (0-2) /hpf Urine Bacteria (Auto) (None Seen) Adenovirus (PCR) (NotDetected) B. pertussis DNA (PCR) (NotDetected) B.parapertussis DNA PCR (NotDetected) C. pneumoniae DNA (PCR) (NotDetected) Coronavirus OC43 (PCR) (NotDetected) Coronavirus HKU1 (PCR) (NotDetected) Coronavirus 229E (PCR) (NotDetected) SARS-CoV-2 (PCR) (NotDetected) Coronavirus NL63 (PCR) (NotDetected) Human Metapneumovir PCR (NotDetected) Influenza Type A (PCR) (NotDetected) Influenza Type B (PCR) (NotDetected) M. pneumoniae (PCR) (NotDetected) Parainfluenza 1 (PCR) (NotDetected) Parainfluenza 2 (PCR) (NotDetected) Parainfluenza 3 (PCR) (NotDetected) Parainfluenza 4 (PCR) (NotDetected) RSV (PCR) (NotDetected) Entero/Rhino (PCR) (NotDetected) Administered Medications Discontinued Medications Sodium Chloride (Nss) 1,000 mls @ 999 mls/hr IV .Q1H1M ONE Stop: 11/20/24 21:08 Last Infusion: 11/20/24 22:16 Dose: Infused Documented By: Admin: 11/20/24 20:23 Dose: 999 mls/hr Documented By: NELSON Magnesium Sulfate/Dextrose (Magnesium Sulfate / D5w) 1 gm in 100 mls @ 100 mls/hr IV NOW STA Stop: 11/20/24 22:05 Last Infusion: 11/20/24 23:17 Dose: Infused Documented By: Admin: 11/20/24 22:17 Dose: 100 mls/hr Documented By: NOLVIA Potassium Chloride (K Tyler / Wtr) 10 meq in 100 mls @ 100 mls/hr IV ONE ONE Stop: 11/20/24 22:05 Last Infusion: 11/21/24 00:23 Dose: Infused Documented By: Admin: 11/20/24 22:17 Dose: 100 mls/hr Documented By: NOLVIA Parenteral Electrolytes (Plasma-Lyte A Ph 7.4) 1,000 mls @ 999 mls/hr IV .Q1H1M ONE Stop: 11/20/24 22:10 Last Infusion: 11/21/24 01:39 Dose: Infused Documented By: Admin: 11/20/24 22:16 Dose: 999 mls/hr Documented By: NOLVIA Piperacillin Sod/Tazobactam Sod (Zosyn) 4.5 gm in 100 mls @ 200 mls/hr IV NOW ONE; Protocol Stop: 11/20/24 23:43 Last Infusion: 11/21/24 01:39 Dose: Infused Documented By: Admin: 11/21/24 01:04 Dose: 200 mls/hr Documented By: PATRICIA Ioversol (Optiray 320 100ml) 100 ml IV ONCE ONE Stop: 11/20/24 23:25 Last Admin: 11/20/24 23:24 Dose: 93 ml Documented By: NOREEN Lisinopril (Lisinopril 2.5 Mg Tab) 2.5 mg PO NOW STA Stop: 11/21/24 00:52 Last Admin: 11/21/24 02:26 Dose: 2.5 mg Documented By: PATRICIA Potassium Chloride (Potassium Chloride Crtab 20 Meq Tabcr) 40 meq PO NOW STA Stop: 11/21/24 00:50 Last Admin: 11/21/24 02:27 Dose: 40 meq Documented By: PATRICIA Imaging Data Radiologist's Impression: Abdomen/Pelvis CT 11/20/24 21:06 Exam(s): CT ABDOMEN + PELVIS With Contrast IV Amt: 93 ml optiray 320 EXAM: CT Abdomen and Pelvis With Intravenous Contrast CLINICAL HISTORY: Reason for exam: hyperbilirubinemia; transaminitis. TECHNIQUE: Axial computed tomography images of the abdomen and pelvis with intravenous contrast. CTDI is 35.42 mGy and DLP is 1241.63 mGy-cm. Automated exposure control was utilized for the study. A dose lowering technique was utilized adhering to the principles of ALARA. CONTRAST: Patient received 93 ml optiray 320 of IV contrast COMPARISON: Ultrasound of the same date.. FINDINGS: Lung bases: No consolidation. ABDOMEN: Liver: The liver is enlarged. Gallbladder and bile ducts: Gallbladder is distended. No calcified stones. There is intra-and extrahepatic biliary ductal dilatation. Pancreas: The pancreatic duct is dilated at 9 mm. There is inhomogeneity noted in the pancreatic head.. Spleen: The spleen is enlarged.. Adrenals: No mass. Kidneys and ureters: No hydronephrosis. There is a 3 cm lucency noted in the right kidney. Stomach and bowel: There is a small hiatal hernia. The stomach is relatively decompressed. There is air and stool noted in the colon. There are diverticula present on the colon. No significant inflammatory changes are seen.. PELVIS: Appendix: Unremarkable CT scan appearance noted the appendix.. Bladder: No calculi are noted within the bladder.. Reproductive: Unremarkable as visualized. ABDOMEN and PELVIS: Intraperitoneal space: No free air. No significant fluid collection. Bones/joints: There are degenerative changes in the spine. There is a bilateral spondylolysis with a grade 1 spondylolisthesis of L5 on S1.. Soft tissues: Unremarkable. Vasculature: No abdominal aortic aneurysm. Lymph nodes: . No enlarged lymph nodes. IMPRESSION: The gallbladder is distended. There is intra-and extra hepatic biliary ductal dilatation present. Pancreatic duct is dilated. There is inhomogeneity in the pancreatic head. An underlying mass cannot be excluded. Hepatosplenomegaly. Small hiatal hernia. Diverticulosis. There is a possible right renal cyst. If further evaluation is clinically necessary, consider correlation with MRI/MRCP. Electronically signed by: Luc Garcia MD 11/20/24 23:53 PM Gallbladder Ultrasound 11/20/24 21:23 Exam(s): US GALLBLADDER EXAM: US Abdomen Limited, Right Upper Quadrant CLINICAL HISTORY: Reason for exam: transaminitis; hyperbilirubinemia. TECHNIQUE: Real-time ultrasound of the right upper quadrant with image documentation. COMPARISON: No relevant prior studies available. FINDINGS: Liver: The liver is enlarged and of increased echogenicity.. No intrahepatic bile duct dilation. Gallbladder: The gallbladder is distended containing sludge as well as small calculi. There is a possible 3 mm polyp within the gallbladder. Gallbladder wall measured 3 mm. Negative Renteria sign was reported. Common bile duct: The common bile duct is dilated at 1.8 cm.. Pancreas: The pancreatic duct is dilated at 8 mm.. Right kidney: No stones. No hydronephrosis. IMPRESSION: The gallbladder is distended containing sludge as well as small calculi. There is a possible 3 mm polyp within the gallbladder. The common bile duct is dilated at 1.8 cm. The pancreatic duct is dilated at 8 mm. The liver is enlarged and of increased echogenicity which may be due to fatty infiltration and/or hepatocellular disease. Electronically signed by: Luc Garcia MD 11/20/24 23:53 PM Discharge Plan Visit Data Chief Complaint: Abnormal Labs/Diagnostic Testing Stated Complaint: RAPID WEIGHT LOSS, SICK, NAUSEA, GLUCOSE HIGH ED Provider: Ju Leiva Discharge Problem: Diabetes, Transaminitis, Hyperbilirubinemia, Acute hypokalemia, Hypomagnesemia, Infection due to human metapneumovirus (hMPV) Forms Stand Alone Forms: My [facility] Prescriptions Prescriptions: No Action hydrochlorothiazide 25 mg Tablet 25 mg PO QAM multivitamin Tablet 1 tab PO QAM Referrals Referrals: Opal Jackson PA-C [Primary Care Provider] -
[2024-11-20] MEDS: PLASMA-LYTE A 1,000 ML IV ONE (22:16)
[2024-11-20 22:17] LABS: Phosphorus 2.9 mg/dl (2.5-4.9)
[2024-11-20] MEDS: MAGNESIUM SULFATE / D5W 1 GM/100 ML BAG IV STA (22:17)
[2024-11-20] MEDS: POTASSIUM CHLORIDE / WTR 10 MEQ/100 ML PLCT IV ONE (22:17)
[2024-11-20] MEDS: OPTIRAY 320 100ml IV ONE (23:24)
--- OUTSIDE RECORDS SUMMARY | 2024-11-20 23:42 | External Medical Summary | Summary of Care ---
Author Name Unknown Organization [facility] Address [address] [place] [address] Phone [phone] Care Team Providers Care Avionics Integration Engineer Name Role Phone Oapl Jackson PA-C Primary Care Provider [phone] Reason for Visit * Reason Comments Acute Encounter Details Date Type Department Care Team (Late st Contact Info) Description 11/20/2024 9:40 AM EST Office Visit Family Practice [facility] [address] [facility] [place] [address] Opal Jackson PA-C [address] [facility] [place] [address] Loss of weight*; Change in stool Allergies Active Allergy Reactions Criticality Noted Date Comments [place]an Karli Hives High 02/15/2012 Real almonds (food) cause: breathing problems Other Allergy (See Comments) 06/09/2012 Fiber glass (at work) causes hives on skin Penicillins 09/20/2000 thrush documented as of this encounter (statuses as of 11/20/2024) Medications Multivitamin Adult Oral Tablet Chewable Take 1 Tab by mouth daily. Active hydroCHLOROthia zide 25 MG Oral Tablet (Hydrodiuril)In dications:HTN, goal below 140/90 TAKE 1 TABLET BY MOUTH EVERY DAY IN THE MORNING 90 Tablet 1 05/31/2024 Active documented as of this encounter (statuses as of 11/20/2024) Active Problems Problem Noted Date Diagnosed Date Arthritis of right ankle 01/18/2018 Primary osteoarthritis of both knees 10/27/2016 Obesity, morbid (more than 1 00 lbs over ideal weight or BMI > 40) 02/18/2010 Overview (02/10/2016): Per Obesity Taxonomy ICD-10 update of inactive term HTN, goal below 140/90 07/24/2006 DIFFUS CYSTIC MASTOPATHY 05/19/2005 Systemic lupus erythematosus documented as of this encounter (statuses as of 11/20/2024) Resolved Problems Problem Noted Date Diagnosed Date Resolved Date ADVANCE DIRECTIVE INFORMATION 10/04/2007 09/25/2024 Overview (07/29/2008): No, Advance Directive brochure given to patient. Morbid obesity, BMI not known 07/24/2006 02/18/2010 Overview (02/18/2010): Per Obesity Taxonomy Varicella without complication 04/20/2003 02/08/2019 documented as of this encounter (statuses as of 11/20/2024) Immunizations Name Administration Dates Next Due Seasonal Influenza Vac., MDV, IM, 0.5 mL (Fluzon e) 10/11/2015 TDAP (age 10 and older)(Boostrix) 11/23/2014 documented as of this encounter Social History Tobacco Use Types Packs/Day Years Used Date Smoking Tobacco: Never Smokeless Tobacco: Never Alcohol Use Standard Drinks/Week Comments Yes 0 (1 standard drink = 0.6 oz pur e alcohol) Weekend couple beers PHQ-2 Answer Date Recorded PHQ Adult Total Score 0 11/10/2022 Utilities Answer Date Recorded Do you have trouble paying y our heating, water, or electric bill? (Adult - for ages 18 years and over) Not on file 05/09/2024 Is your family able to pay t he heat, water, or electric bill? (Household - for ages 0-17 years) Not on file 05/09/2024 Does your family have access to good internet? (Household - for ages 0-17 years) Not on file 05/09/2024 Social Connections Answer Date Recorded How often do you feel lonely or isolated from those around you? (Adult - for ages 18 years and over) Not on file 05/09/2024 Comments No Sex and Gender Information Value Date Recorded Sex Assigned at Not on file Legal Sex Female 5:56 AM EST Gender Identity Not on file Sexual Orientation Not on file Occupation Industry Job Start Date Job End Date [employer] Not on file Not on file Not on file Not on file Not on file Not on file Not on file documented as of this encounter Last Filed Vital Signs Vital Sign Reading Time Taken Comments Blood Pressure 112/70 11/20/2024 9:37 AM EST Pulse 100 11/20/2024 9:37 AM EST Temperature 36.6 C (97.9 F) 11/20/2024 9:37 AM ES T Respiratory Rate 16 11/20/2024 9:37 AM EST Oxygen Saturation - - Inhaled Oxygen Concentration - - Weight 97.4 kg (214 lb 12 oz) 11/20/2024 9:37 AM EST Height - - Body Mass Index 35.74 06/30/2023 3:28 PM EDT documented in this encounter Progress Notes * Opal Jackson PA-C - 11/20/2024 10:10 AM EST Images from the original note were not included. History of Present Illness Sana Cisse is a 64 year old female that presents for Acute Patient is a 64 year old female who presents with a significant weight loss in the past month. She notes nausea, increase bowel movements Stools light in color, float, Feels itchy all over. Denies chest pain, sob, palpitations, edema, headaches, dizzy Thinks it started with a stomach flu Physical Exam Vitals: 11/20/24 0937 Temp: 97.9 F (36.6 C) Pulse: 100 Resp: 16 BP: 112/70 BP Readings from Last 3 Encounters: 11/20/24 112/70 08/21/24 118/74 08/03/24 131/60 Wt Readings from Last 3 Encounters: 11/20/24 214 lb 12 oz (97.4 kg) 12/14/23 253 lb 0.6 oz (114.8 kg) 06/30/23 238 lb (108 kg) General: alert, no distress, well nourished, well developed, and cooperative Head: Normocephalic, No masses, lesions, tenderness or abnormalities Eye Exam: PERRLA, extraocular movements intact, conjunctiva are pink and non- injected, sclera icteric Ears: External ears normal, Canals clear, TM's Normal Nose: no mucosal erythema, no mucosal edema, no purulent discharge Oropharynx: no exudate, no erythema, lips, buccal mucosa, and tongue normal, and mucous membranes are moist Neck: supple, no adenopathy, no bruits, thyroid normal size, non-tender, without nodularity Heart: regular rate & rhythm, no murmur, and no gallops Lungs: chest symmetric with normal AP diameter, no chest deformities noted, normal respiratory rateand rhythm, no chest wall tenderness, diaphragmatic excursion normal, lungs clear to auscultation Abdomen: abdomen soft, non-tender, normal bowel sounds, no masses or organomegaly, no rebound or guarding, no CVA tenderness, no bladder distention identified, and no bruits Back: back symmetric, no curvature, no costovertebral angle tenderness, range of motion is normal Extremities: less than 2 second capillary refill, no joint deformities, effusion, or inflammation, no edema, no skin discoloration, no clubbing, no cyanosis Neuro Exam: alert & oriented x 3 with fluent speech, no focal motor/sensory deficits, gait normal I have reviewed the following results: None Assessment and Plan Loss of weight (Primary) - CBC; Future; Expected date: 11/20/2024 - ERYTHROCYTE SEDIMENTATION RATE (ESR); Future; Expected date: 11/20/2024 - COMPREHENSIVE METABOLIC PANEL; Future; Expected date: 11/20/2024 - HEMOGLOBIN A1C; Future; Expected date: 11/20/2024 - XR ABDOMEN 1 VIEW; Future; Expected date: 11/20/2024 Change in stool - XR ABDOMEN 1 VIEW; Future; Expected date: 11/20/2024 Wrap-Up Time: I spent a total of 30-39 minutes (exact time 33 mins) on the date of service in preparation, delivery, and documentation of the care provided to Sana Cisse excluding any time spent in the performance of separately billed services. documented in this encounter Nursing Notes * Norma Hooper NA - 11/20/2024 9:33 AM EST Sana Cisse presents with complaints of feeling like her stomach is "messed up", fatigue, justfeels sick for the past month. Notes cough and pruritus worse at night without a rash. Denies vomiting or nausea, runny nose, fevers at home. Patient reports she hasn't been able to eat as much as she used to and experiencing unintentional weightloss. Also not frequent trips to the bathroom to urinate and pass bowel movements. States she has some lower abdominal discomfort after going. Notes her bowel movements come out "medium shrimp size." Reports she has been taking OTC pepto with no relief. documented in this encounter Plan of Treatment Upcoming Encounters Date Type Department Care Team (Late st Contact Info) Description 12/26/2024 3:00 PM EST Office Visit Family Practice [facility] [place] [address] [facility] [place] [address] Opal Jackson PA-C [address] [facility] [place] [address] Pending Results Name Type Priority Associated Diagnoses Date /Time CBC Lab Routine Loss of weight 11/20/2024 10:40 AM EST ERYTHROCYTE SEDIMENTATION RATE (ESR) Lab Routine Loss of weight 11/20/2024 10:40 AM EST COMPREHENSIVE METABOLIC PANEL Lab Routine Loss of weight 11/20/2024 10:40 AM EST HEMOGLOBIN A1C Lab Routine Loss of weight 11/20/2024 10:40 AM EST Scheduled Orders Name Type Priority Associated Diagnoses Orde r Schedule CBC Lab Routine Loss of weight Expected: 11/20/2024 (Approximate), Expires: 11/20/2025 ERYTHROCYTE SEDIMENTATION RATE (ESR) Lab Routine Loss of weight Expected: 11/20/2024 (Approximate), Expires: 11/20/2025 COMPREHENSIVE METABOLIC PANEL Lab Routine Loss of weight Expected: 11/20/2024 (Approximate), Expires: 11/20/2025 HEMOGLOBIN A1C Lab Routine Loss of weight Expected: 11/20/2024 (Approximate), Expires: 11/20/2025 XR ABDOMEN 1 VIEW Medical Imaging Routine Loss of weight Change in stool Expected: 11/20/2024, Expires: 12/21/2025 Scheduled Procedures Name Priority Associated Diagnoses Date/Ti me COLONOSCOPY FLEXIBLE PROXIMA L DIAGNOSTIC Recall Encounter for screening colonoscopy Health Maintenance Due Date Last Done Comments Cologuard 2006 Fecal Occult Blood Test 2006 Sigmoidoscopy 2006 Pneumococcal Vaccine: 50+ Years (1 of 1 - PCV) 2011 Zoster Vaccines (1 of 2) 2011 GFR 07/13/2023 07/13/2022, 09/0 03/2021, 07/30/2020, Additional history exists Depression Screening 11/10/2023 11/10/2022, 01/20/2018 (Discussed) COVID-19 Vaccine ( - season) 2024 Influenza Vaccine (FLU shot) (#1) 2024 01/20/2018 (Unable to do), 10/11/2015 DTap/Tdap Vaccines (2 - Td or Tdap) 11/23/2024 11/23/2014, 1989 Mammogram 11/24/2024 11/24/2023, 04/24, 03/14/2021, Additional history exists Albumin/Creatinine Ratio 07/13/2025 07/13/2022 Diabetes Screening 07/13/2025 07/13/2022, 0 07/27/2021, 07/30/2020, Additional history exists Colonoscopy 01/13/2026 01/13/2016, 01/13/2016 Colorectal Cancer Screening 01/13/2026 Pap Smear 12/14/2026 12/14/2023, 03/0 11/2017, 11/23/2014, Additional history exists Lipid Panel 07/13/2027 07/13/2022, 09/0 06/2020, 12/02/2014, Additional history exists Cervical Cancer Screening 12/14/2028 HPV/Co-Test 12/14/2028 12/14/2023 HPV (Gardasil) Vaccine Aged Out No lo nger eligible based on patient's age to complete this topic Hepatitis B Vaccine Aged Out No longe r eligible based on patient's age to complete this topic MENINGOCOCCAL (MENACTRA/MENVEO) Aged Out No longer eligible based on patient's age to complete this topic documented as of this encounter Medical Devices Not on filedocumented as of this encounter Visit Diagnoses Diagnosis Loss of weight- Primary Change in stool Nonspecific abnormal finding in stool contents documented in this encounter Care Teams Avionics Integration Engineer Relationship Specialty Start Date End Date Manuel February Jerry, C[facility] [address] [place] [address] PCP - General Physician Pool Cleaner 05/11/17 documented as of this encounter
--- OUTSIDE RECORDS SUMMARY | 2024-11-20 23:42 | External Medical Summary ---
Author Name Unknown Address Unknown Organization [id number] [place] [address] Laboratory Report Ordering Provider Test Date Status 11/20/2024 10:40:57 Final Observation Date Value Abnormality Reference (Units ) Status WBC, Total 11/20/2024 10:40:57 3.24 Below low normal 4. 00-10.80 (K/uL) Final RBC 11/20/2024 10:40:57 4.20 3.85-5.15 (M/uL) Final Hemoglobin 11/20/2024 10:40:57 12.4 12.0-15.3 (g/dL) Final HCT 11/20/2024 10:40:57 37.9 36.0-45.2 (%) Final MCV 11/20/2024 10:40:57 90.2 81.5-97.5 (fL) Final MCH 11/20/2024 10:40:57 29.5 27.0-34.0 (pg) Final MCHC 11/20/2024 10:40:57 32.7 32.0-36.0 (g/dL) Final RDW 11/20/2024 10:40:57 15.9 11.5-15.5 (%) Final Platelets 11/20/2024 10:40:57 184 140-400 (K /uL) Final MPV 11/20/2024 10:40:57 12.7 6.6-11.1 ( fL) Final Performing Location [facility] [place] [id number]
--- OUTSIDE RECORDS SUMMARY | 2024-11-20 23:42 | External Medical Summary | Summary of Care ---
Author Name Unknown Organization [facility] Address [address] [facility] [address] Phone [phone] Care Team Providers Care Shafting Worker Name Role Phone Opal Jackson PA-C Primary Care Provider [phone] Reason for Visit * Reason Onset Date Comments Health Maintenance 10/23/2024 Encounter Details Date Type Department Care Team (Late st Contact Info) Description 10/23/2024 Telephone Family Practice [facility] [address] [place] [address] Opal Jackson PA-C [address] [facility] [place] [address] Health Maintenance Allergies Active Allergy Reactions Criticality Noted Date Comments [place] Karli Hives High 02/15/2012 Real almonds (food) cause: breathing problems Other Allergy (See Comments) 06/09/2012 Fiber glass (at work) causes hives on skin Penicillins 09/20/2000 thrush documented as of this encounter (statuses as of 10/23/2024) Medications Multivitamin Adult Oral Tablet Chewable Take 1 Tab by mouth daily. Active hydroCHLOROthia zide 25 MG Oral Tablet (Hydrodiuril)In dications:HTN, goal below 140/90 TAKE 1 TABLET BY MOUTH EVERY DAY IN THE MORNING 90 Tablet 1 05/31/2024 Active documented as of this encounter (statuses as of 10/23/2024) Active Problems Problem Noted Date Diagnosed Date Arthritis of right ankle 01/18/2018 Primary osteoarthritis of both knees 10/27/2016 Obesity, morbid (more than 1 00 lbs over ideal weight or BMI > 40) 02/18/2010 Overview (02/10/2016): Per Obesity Taxonomy ICD-10 update of inactive term HTN, goal below 140/90 07/24/2006 DIFFUS CYSTIC MASTOPATHY 05/19/2005 Systemic lupus erythematosus documented as of this encounter (statuses as of 10/23/2024) Resolved Problems Problem Noted Date Diagnosed Date Resolved Date ADVANCE DIRECTIVE INFORMATION 10/04/2007 09/25/2024 Overview (07/29/2008): No, Advance Directive brochure given to patient. Morbid obesity, BMI not known 07/24/2006 02/18/2010 Overview (02/18/2010): Per Obesity Taxonomy Varicella without complication 04/20/2003 02/08/2019 documented as of this encounter (statuses as of 10/23/2024) Immunizations Name Administration Dates Next Due Seasonal [...] on file documented as of this encounter Miscellaneous Notes * Telephone Encounter - Monalisa Wang LPN - 10/23/2024 1:56 PM EST Care Gaps Comprehensive Care Outreach Last Office/Telemedicine Visit: 08/21/2024 (in office), Visit date not found (telemedicine) Next Office Visit: 12/05/2024 Hemoglobin AIC Results: Lab Results Component Value Date/Time HEMOGLOBIN A1C - [facility] 5.8 (H) 07/30/2020 11:43 AM BP Readings from Last 1 Encounters: 08/21/24 118/74 Reviewed Health Maintenance below: Health Maintenance Topic Date Due Zoster Vaccines (1 of 2) Never done GFR 07/13/2023 Depression Screening 11/10/2023 Influenza Vaccine (FLU shot) (1) 07/23/2024 COVID-19 Vaccine (1 - season) Never done DTap/Tdap Vaccines (2 - Td or Tdap) 11/23/2024 Mammogram 11/24/[address] [facility] Lab already ordered Care Gap Outreach Action Taken: Outreach not indicated documented in this encounter Plan of Treatment Upcoming Encounters Date Type Department Care Team (Late st Contact Info) Description 12/05/2024 4:20 PM EST Office Visit Family Practice [facility] [address] [place] [address] Opal Jackson PA-C [address] [place] [address] Scheduled Procedures Name Priority Associated Diagnoses Date/Ti me COLONOSCOPY FLEXIBLE PROXIMA L DIAGNOSTIC Recall Encounter for screening colonoscopy Health Maintenance Due Date Last Done Comments Cologuard 2006 Fecal Occult Blood Test 2006 Sigmoidoscopy 2006 Zoster Vaccines (1 of 2) 2011 GFR [...] Cancer Screening 01/13/2026 Pap Smear 12/14/2026 12/14/2023, 0311/2017, 11/23/2014, Additional history exists Lipid Panel 07/13/2027 07/13/2022, 090 06/2020, 12/02/2014, Additional history exists Cervical Cancer Screening 12/14/2028 HPV/Co-Test 12/14/2028 12/14/2023 HPV (Gardasil) Vaccine Aged Out No lo nger eligible based on patient's age to complete this topic Hepatitis B Vaccine Aged Out No longe r eligible based on patient's age to complete this topic MENINGOCOCCAL (MENACTRA/MENVEO) Aged Out No longer eligible based on patient's age to complete this topic Pneumococcal Vaccine: Pediatrics (0 to 5 Years) and At-Risk Patients (6 to 64 Years) Aged Out No longer eligible based on patient's age to complete this topic documented as of this encounter Medical Devices Not on filedocumented as of this encounter Care Teams Shafting Worker Relationship Specialty Start Date End Date Manuel February CODY Edwards [address] [place] [address] PCP - General Physician Composition Tile Layer 05/11/17 documented as of this encounter
--- OUTSIDE RECORDS SUMMARY | 2024-11-20 23:42 | External Medical Summary ---
Author Name Unknown Address Unknown Organization [facility] [address] [place] [address] Laboratory Report Ordering Provider Test Date Status 11/20/2024 10:40:57 Final Observation Date Value Abnormality Reference (Units ) Status BUN 11/20/2024 10:40:57 10 6-20 (mg/dL) Final Creatinine 11/20/2024 10:40:57 0.9 0.5-1.0 (mg/dL) Final Glomerular filtration rate/1.73 sq M.predicted [Volume Rate/Area] in Serum, Plasma or Blood by Creatinine-based formula (CKD-EPI) 11/20/2024 10:40:57 72 >=60 (mL/min) Final eGFR is calculated based on the CKD-EPI 2020 equation. Sodium 11/20/2024 10:40:57 135 135-146 (m mol/L) Final Potassium 11/20/2024 10:40:57 3.9 3.5-5.1 (m mol/L) Final Cl 11/20/2024 10:40:57 96 Below low normal 98- 107 (mmol/L) Final CO2 11/20/2024 10:40:57 23 22-32 (mmo l/L) Final Anion gap 11/20/2024 10:40:57 16 Above high normal 7- 15 (mmol/L) Final Glucose 11/20/2024 10:40:57 528 Above upper panic li mits 70-120 (mg/dL) Final Results rechecked. Albumin 11/20/2024 10:40:57 3.9 3.8-5.0 (g /dL) Final AST (Aspartate aminotransferase) 11/20/2024 10:40:57 90 Above high normal 10-35 (U/L) Final Alk Phos 11/20/2024 10:40:57 346 Above high normal 35 -130 (U/L) Final Bilirubin, Total 11/20/2024 10:40:57 9.7 Above high no rmal <=1.2 (mg/dL) Final Calcium 11/20/2024 10:40:57 9.7 8.4-10.2 ( mg/dL) Final Protein 11/20/2024 10:40:57 7.5 6.0-8.3 (g /dL) Final ALT (Alanine aminotransferase) 11/20/2024 10:40:57 142 Above high normal 10-35 (U/L) Final Performing Location [facility] [place] [address]
--- OUTSIDE RECORDS SUMMARY | 2024-11-20 23:42 | External Medical Summary | Summary of Care ---
Author Name Unknown Organization [facility] Address [address] [facility] [address] Phone [phone] Care Team Providers Care Instructor Ground Services Name Role Phone Opal Jackson PA-C Primary Care Provider [phone] Reason for Visit * Reason Comments Outpatient Testing Encounter Details Date Type Department Care Team (Late st Contact Info) Description 11/20/2024 10:40 AM EST Laboratory [facility] [address] [place] [id number] [place], [facility] [address] [place] [address] Screening for diabetes mellitus; Screening for cardiovascular condition; Loss of weight Allergies Active Allergy Reactions Criticality Noted Date Comments [place] Karli Hives High 02/15/2012 Real almonds (food) [...] on file documented as of this encounter Plan of Treatment Upcoming Encounters Date Type Department Care Team (Late st Contact Info) Description 12/26/2024 3:00 PM EST Office Visit Family Practice [facility] [place] [address] [facility] [address] Manuel February CODY Edwards [address] [place] [address] Pending Results Name Type Priority Associated Diagnoses Date /Time LIPID PANEL WITH DIRECT LDL IF TG IS HIGH Lab Routine Screening for cardiovascular condition 11/20/2024 10:40 AM EST ERYTHROCYTE SEDIMENTATION RATE (ESR) Lab Routine Loss of weight 11/20/2024 10:40 AM EST COMPREHENSIVE METABOLIC PANEL Lab Routine Loss of weight 11/20/2024 10:40 AM EST HEMOGLOBIN A1C Lab Routine Loss of weight 11/20/2024 10:40 AM EST Scheduled Procedures Name Priority Associated Diagnoses Date/Ti [...] Screening 11/10/2023 11/10/2022, 01/20/2018 (Discussed) COVID-19 Vaccine (1 - season) 2024 Influenza Vaccine (FLU shot) (#1) 2024 01/20/2018 (Unable to do), 10/11/2015 DTap/Tdap Vaccines (2 - Td or Tdap) 11/23/2024 11/23/2014, 1989 Mammogram 11/24/2024 11/24/2023, 06/, 03/14/2021, Additional history exists Albumin/Creatinine Ratio 07/13/2025 [...] Not on filedocumented as of this encounter Procedures Procedure Name Priority Date/Time Associated Diagnosis Comments CBC Routine 11/20/2024 10:40 AM EST Loss of weight documented in this encounter Results * (ABNORMAL) CBC (11/20/2024 10:40 AM EST) WBC 3.24(L) 4.00 - 10.80 K/uL 11/20/2024 10:53 AM EST [facility] RBC 4.20 3.85 - 5.15 M/uL 11/20/2024 10:53 AM EST [facility] HGB 12.4 12.0 - 15.3 g/dL 11/20/2024 10:53 AM EST [facility] HCT 37.9 36.0 - 45.2 % 11/20/2024 10:53 AM EST [facility] MCV 90.2 81.5 - 97.5 fL 11/20/2024 10:53 AM EST [facility]-02 MCH 29.5 27.0 - 34.0 pg 11/20/2024 10:53 AM [facility] 56 MCHC 32.7 32.0 - 36.0 g/dL 11/20/2024 10:53 AM [facility] 56 RDW 15.9 11.5 - 15.5 % 11/20/2024 10:53 AM [facility] 56 PLT 184 140 - 400 K/uL 11/20/2024 10:53 AM [facility] 56 MPV 12.7 6.6 - 11.1 fL 11/20/2024 10:53 AM [facility] 56 Blood Venous blood specimen / Unknown Venipuncture / Unknown 11/20/2024 10:40 AM EST 11/20/2024 10:40 AM EST Opal Jackson PA-C LAB BLOOD ORDERABLES Final Res ult [facility] [address] [facility] [place] [address] documented in this encounter Visit Diagnoses Diagnosis Screening for diabetes mellitus Screening for cardiovascular condition Screening for other and unspecified cardiovascular conditions Loss of weight documented in this encounter Care Teams Instructor Ground Services Relationship Specialty Start Date End Date Opal Jackson PA-C [address] [facility] [place] [address] PCP - General Physician Director Of Government Sales 05/11/17 documented as of this encounter
--- OUTSIDE RECORDS SUMMARY | 2024-11-20 23:43 | External Medical Summary | Summary of Care ---
Author Name Unknown Organization [facility] Address [address] [place] [address] Phone [phone] Care Team Providers Care Media Sales Representative Name Role Phone Opal Jackson PA-C Primary Care Provider [phone] Reason for Visit * Reason Onset Date Comments Appointment 06/05/2024 Encounter Details Date Type Department Care Team (Late st Contact Info) Description 06/05/2024 Telephone Nutrition & Weight Management, [place] [address], [place] [id number] Kenyetta Jimenez CRNP [address] [place] [address] Appointment Allergies Active Allergy Reactions Criticality Noted Date Comments [place] Karli Hives High 02/15/2012 Real almonds (food) cause: breathing problems Other Allergy (See Comments) 06/09/2012 Fiber glass (at work) causes hives on skin Penicillins 09/20/2000 thrush documented as of this encounter (statuses as of 06/05/2024) Medications Medication Sig Dispensed Refills Start Date End Date Status Multivitamin Adult Oral Tablet Chewable Take 1 Tab by mouth daily. Active Acetaminophen 500 MG Oral Tablet (Tylenol) Take 2 Tablets by mouth in the morning and 2 Tablets at noon and 2 Tablets before bedtime. Active hydroCHLOROthiazide 25 MG Oral Tablet (Hydrodiuril)Indicati ons:HTN, goal below 140/90 TAKE 1 TABLET BY MOUTH EVERY DAY IN THE MORNING 90 Tablet 1 05/31/2024 Active documented as of this encounter (statuses as of 06/05/2024) Active Problems Problem Noted Date Diagnosed Date Arthritis of right ankle 01/18/2018 Primary osteoarthritis of both knees 10/27/2016 Obesity, morbid (more than 1 00 lbs over ideal weight or BMI > 40) 02/18/2010 Overview: Per Obesity Taxonomy ICD-10 update of inactive term ADVANCE DIRECTIVE INFORMATION 10/04/2007 Overview: No, Advance Directive brochure given to patient. HTN, goal below 140/90 07/24/2006 DIFFUS CYSTIC MASTOPATHY 05/19/2005 Systemic lupus erythematosus documented as of this encounter (statuses as of 06/05/2024) Resolved Problems Problem Noted Date Diagnosed Date Resolved Date Morbid obesity, BMI not known 07/24/2006 02/18/2010 Overview: Per Obesity Taxonomy Varicella without complication 04/20/2003 02/08/2019 documented as of this encounter (statuses as of 06/05/2024) Immunizations Name Administration Dates Next Due Seasonal Influenza, Split, IIV3, With Preserve, Inj 10/11/2015 TDAP (age 10 and older)(Boostrix) 11/23/2014 [...] years and over) Not on file 05/09/2024 Sex and Gender Information Value Date Recorded Sex Assigned at Not on file Gender Identity Not on file Sexual Orientation Not on file Job Start Date Occupation Industry Not on file Not on file Not on file documented as of this encounter Miscellaneous Notes * Telephone Encounter - Jia El OSA - 06/05/2024 10:28 AM EDT LM to sched appt documented in this encounter Plan of Treatment Scheduled Procedures Name Priority Associated Diagnoses Date/Ti me COLONOSCOPY FLEXIBLE PROXIMA L DIAGNOSTIC Recall Encounter for screening colonoscopy Health Maintenance Due Date Last Done Comments Cologuard 2006 Fecal Occult Blood Test 2006 Sigmoidoscopy 2006 Zoster Vaccines (1 of 2) 2011 GFR 07/13/2023 07/13/2022, 03/2021, 07/30/2020, Additional history exists COVID-19 Vaccine ( - season) 2023 Depression Screening 11/10/2023 11/10/2022, 01/20/2018 (Discussed) Influenza Vaccine (FLU shot) (#1) 2024 01/20/2018 (Unable to do), 10/11/2015 DTaP,Tdap,and Td Vaccines (2 - Td or Tdap) 11/23/2024 [...] filedocumented as of this encounter Care Teams Media Sales Representative Relationship Specialty Start Date End Date Manuel February CODY Edwards [address] [place] [address] PCP - General Physician Supervisor [employer] House 05/11/17 documented as of this encounter
--- OUTSIDE RECORDS SUMMARY | 2024-11-20 23:43 | External Medical Summary | Summary of Care ---
Author Name Unknown Organization [facility] Address [address] [place] [address] Phone [phone] Care Team Providers Care Endless Steamer Tender Name Role Phone Opal Jackson PA-C Primary Care Provider [phone] Reason for Visit * Reason Onset Date Comments Appointment 05/26/2024 Encounter Details Date Type Department Care Team (Late st Contact Info) Description 05/26/2024 Telephone Nutrition & Weight Management, [place] [address], [place] [phone] Kenyetta Jimenez CRNP [address] [place] [address] Appointment Allergies Active Allergy Reactions Criticality Noted Date Comments [place] Karli Hives High 02/15/2012 Real almonds (food) cause: breathing problems Other Allergy (See Comments) 06/09/2012 Fiber glass (at work) causes hives on skin Penicillins 09/20/2000 thrush documented as of this encounter (statuses as of 05/26/2024) Medications Medication Sig Dispensed Refills Start Date End Date Status Multivitamin Adult Oral Tablet Chewable Take 1 Tab by mouth daily. Active Acetaminophen 500 MG Oral Tablet (Tylenol) Take 2 Tablets by mouth in the morning and 2 Tablets at noon and 2 Tablets before bedtime. Active hydroCHLOROthiazide 25 MG Oral Tablet (Hydrodiuril)Indicati ons:HTN, goal below 140/90 Take 1 Tablet by mouth in the morning. 90 Tablet 1 12/02/2023 Active documented as of this encounter (statuses as of 05/26/2024) Active Problems Problem Noted Date Diagnosed Date [...] as of this encounter (statuses as of 05/26/2024) Resolved Problems Problem Noted Date Diagnosed Date Resolved Date Morbid obesity, BMI not known 07/24/2006 02/18/2010 Overview: Per Obesity Taxonomy Varicella without complication 04/20/2003 02/08/2019 documented as of this encounter (statuses as of 05/26/2024) Immunizations Name Administration Dates Next Due Seasonal [...] Telephone Encounter - Jia El OSA - 05/26/2024 10:09 AM EDT LM to schedule video appt documented in this encounter Plan of [...] Additional history exists Lipid Panel 07/13/2027 07/13/2022, 0906/2020, 12/02/2014, Additional history exists Cervical Cancer Screening [...] filedocumented as of this encounter Care Teams Endless Steamer Tender Relationship Specialty Start Date End Date Manuel February CODY Edwards [address] [place] [address] PCP - General Physician Spear Fisher 05/11/17 documented as of this encounter
--- OUTSIDE RECORDS SUMMARY | 2024-11-20 23:43 | External Medical Summary | Summary of Care ---
Author Name Unknown Organization [facility] Address [address] [facility] [address] Phone [phone] Care Team Providers Care Childcare Teacher Name Role Phone Opal Jackson PA-C Primary Care Provider [phone] Reason for Visit * Reason Onset Date Comments Blood Pressure Check 07/21/2024 Encounter Details Date Type Department Care Team (Late st Contact Info) Description 07/21/2024 Telephone Family Practice [facility] [address] [facility] [place] [address] Opal Jackson PA-C [address] [facility] [place] [address] Blood Pressure Check Allergies Active Allergy Reactions Criticality Noted Date Comments [place] Karli Hives High 02/15/2012 Real almonds (food) cause: breathing problems Other Allergy (See Comments) 06/09/2012 Fiber glass (at work) causes hives on skin Penicillins 09/20/2000 thrush documented as of this encounter (statuses as of 07/31/2024) Medications Medication Sig Dispensed Refills Start Date [...] as of this encounter (statuses as of 07/31/2024) Active Problems Problem Noted Date Diagnosed Date [...] as of this encounter (statuses as of 07/31/2024) Resolved Problems Problem Noted Date Diagnosed Date Resolved Date Morbid obesity, BMI not known 07/24/2006 02/18/2010 Overview: Per Obesity Taxonomy Varicella without complication 04/20/2003 02/08/2019 documented as of this encounter (statuses as of 07/31/2024) Immunizations Name Administration Dates Next Due Seasonal Influenza, Trivalen t, (IIV3), with Preserv, (Fluzone) 10/11/2015 TD - Tetanus/Diptheria (ADULT) 1989 TDAP (age 10 and older)(Boostrix) 11/23/2014 documented [...] encounter Miscellaneous Notes * Telephone Encounter - Madison Haq OSA - 07/31/2024 3:17 PM EDT Pt calling in. BP today was 149/74 P 94. She is not experiencing any symptoms. Pt is asking if she should be seen in the office. Please advise. Thank you. * Telephone Encounter - Opal Jackson PA-C - 07/25/2024 7:11 PM EDT noted * Telephone Encounter - Beatrice Santiago LPN - 07/21/2024 11:21 AM EDT Sana Cisse presented for blood pressure check per provider orders. The blood pressure was obtained using the left arm in the sitting position using a adult large cuff. The results were charted in Vital Signs. BP Readings from Last 3 Encounters: 07/21/24 124/70 12/14/23 134/78 06/30/23 120/82 BP 124/70 | Pulse 96 | LMP 05/22/2012 Patient denies headache, pressure in head, dizziness, lightheadedness, chest discomfort, focal neurological symptoms, change in vision, nose bleeds. Did patient take medications today? Yes Patient was instructed to follow-up as per their next scheduled appt documented in this encounter Plan of [...] filedocumented as of this encounter Care Teams Childcare Teacher Relationship Specialty Start Date End Date Manuel February CODY Edwards [facility] [address] [place] [id number] PCP - General Physician Laminating Machine Offbearer 05/11/17 documented as of this encounter"
--- OUTSIDE RECORDS SUMMARY | 2024-11-20 23:43 | External Medical Summary | Summary of Care ---
Author Name Unknown Organization [facility] Address [address] [facility] [address] Phone [phone] Care Team Providers Care Packer Dried Beef Name Role Phone Opal Jackson PA-C Primary Care Provider [phone] Reason for Visit * Reason Onset Date Comments Blood Pressure Check 07/21/2024 Encounter Details Date Type Department Care Team (Late st Contact Info) Description 07/21/2024 11:00 AM EDT Nurse Only Ancillary [facility] [place] [address] [place] [address] [place], Nurse Fam Prac [facility] [address] [place] [address] Blood Pressure Check Allergies Active Allergy Reactions Criticality Noted Date Comments [place] Karli Hives High 02/15/2012 Real almonds (food) cause: breathing problems Other Allergy (See Comments) 06/09/2012 Fiber glass (at work) causes hives on skin Penicillins 09/20/2000 thrush documented as of this encounter (statuses as of 07/21/2024) Medications Medication Sig Dispensed Refills Start Date [...] as of this encounter (statuses as of 07/21/2024) Active Problems Problem Noted Date Diagnosed Date [...] as of this encounter (statuses as of 07/21/2024) Resolved Problems Problem Noted Date Diagnosed Date Resolved Date Morbid obesity, BMI not known 07/24/2006 02/18/2010 Overview: Per Obesity Taxonomy Varicella without complication 04/20/2003 02/08/2019 documented as of this encounter (statuses as of 07/21/2024) Immunizations Name Administration Dates Next Due Seasonal Influenza, Trivalen t, (IIV3), with Preserv, (Fluzone) 10/11/2015 TDAP (age 10 and older)(Boostrix) 11/23/2014 [...] Sign Reading Time Taken Comments Blood Pressure 124/70 07/21/2024 11:00 AM EDT Pulse 96 07/21/2024 11:00 AM EDT Temperature - - Respiratory Rate - - Oxygen Saturation - - Inhaled Oxygen Concentration - - Weight - - Height - - Body Mass Index - - documented in this encounter Progress Notes * Beatrice Santiago LPN - 07/21/2024 11:20 AM EDT Sana Cisse presented for blood [...] in this encounter Plan of Treatment Scheduled Orders Name Type Priority Associated Diagnoses Orde r Schedule BLOOD PRESSURE Procedures Routine HTN, goal below 140/90 Ordered: 07/21/2024 Scheduled Procedures Name Priority Associated Diagnoses Date/Ti me COLONOSCOPY FLEXIBLE PROXIMA L DIAGNOSTIC Recall Encounter for screening colonoscopy Health Maintenance Due Date Last Done Comments Cologuard 2006 Fecal Occult Blood Test 2006 Sigmoidoscopy 2006 Zoster Vaccines (1 of 2) 2011 GFR 07/13/2023 07/13/2022, 0903/2021, 07/30/2020, Additional history exists COVID-19 Vaccine ( - 2022- season) 2023 Depression Screening 11/10/2023 11/10/2022, 01/20/2018 (Discussed) Influenza Vaccine (FLU shot) (#1) 2024 01/20/2018 (Unable to do), 10/11/2015 DTap/Tdap Vaccines (2 - Td or Tdap) 11/23/2024 11/23/2014, 1989 Mammogram 11/24/2024 11/24/2023, 04/24, 03/14/2021, Additional history exists Albumin/Creatinine Ratio 07/13/2025 07/13/2022 Diabetes Screening 07/13/2025 07/13/2022, 0 07/27/2021, 07/30/2020, Additional history exists Colonoscopy 01/13/2026 01/13/2016, 01/13/2016 Colorectal Cancer Screening 01/13/2026 Pap Smear 12/14/2026 12/14/2023, 03/11/2017, 11/23/2014, Additional history exists Lipid Panel 07/13/2027 [...] as of this encounter Visit Diagnoses Diagnosis HTN, goal below 140/90- Primary Unspecified essential hypertension documented in this encounter Care Teams Packer Dried Beef Relationship Specialty Start Date End Date Manuel February CODY Edwards [address] [place] [address] PCP - General Physician Reconciliation Accountant 05/11/17 documented as of this encounter"
--- OUTSIDE RECORDS SUMMARY | 2024-11-20 23:43 | External Medical Summary | Summary of Care ---
Author Name Unknown Organization [facility] Address [address] [facility] [address] Phone [phone] Care Team Providers Care Base Loader Name Role Phone Opal Jackson PA-C Primary Care Provider [phone] Encounter Details Date Type Department Care Team (Late st Contact Info) Description 08/03/2024 11:00 AM EDT [facility] [address] [place] [address] [place], Nurse Fam Prac [place] [address] [place] [address] Allergies Active Allergy Reactions Criticality Noted Date Comments [place] Karli Hives High 02/15/2012 Real almonds (food) cause: breathing problems Other Allergy (See Comments) 06/09/2012 Fiber glass (at work) causes hives on skin Penicillins 09/20/2000 thrush documented as of this encounter (statuses as of 09/12/2024) Medications Medication Sig Dispensed Refills Start Date End Date Status Multivitamin Adult Oral Tablet Chewable Take 1 Tab by mouth daily. Active hydroCHLOROthiazide 25 MG Oral Tablet (Hydrodiuril)Indicati ons:HTN, goal below 140/90 TAKE 1 TABLET BY MOUTH EVERY DAY IN THE MORNING 90 Tablet 1 05/31/2024 Active documented as of this encounter (statuses as of 09/12/2024) Active Problems Problem Noted Date Diagnosed Date [...] as of this encounter (statuses as of 09/12/2024) Resolved Problems Problem Noted Date Diagnosed Date Resolved Date Morbid obesity, BMI not known 07/24/2006 02/18/2010 Overview: Per Obesity Taxonomy Varicella without complication 04/20/2003 02/08/2019 documented as of this encounter (statuses as of 09/12/2024) Immunizations Name Administration Dates Next Due Seasonal [...] Sign Reading Time Taken Comments Blood Pressure 131/60 08/03/2024 11:19 AM EDT Pulse 79 08/03/2024 11:19 AM EDT Temperature - - Respiratory Rate - - Oxygen Saturation - - Inhaled Oxygen Concentration - - Weight - - Height - - Body Mass Index - - documented in this encounter Plan of Treatment Scheduled Procedures Name Priority Associated Diagnoses Date/Ti me COLONOSCOPY FLEXIBLE PROXIMA L DIAGNOSTIC Recall Encounter for screening colonoscopy Health Maintenance Due Date Last Done Comments Cologuard 2006 Fecal Occult Blood Test 2006 Sigmoidoscopy 2006 Zoster Vaccines (1 of 2) 2011 GFR 07/13/2023 07/13/2022, 03/2021, 07/30/2020, Additional history exists Depression Screening 11/10/2023 11/10/2022, 01/20/2018 (Discussed) COVID-19 Vaccine ( season) 2024 Influenza Vaccine (FLU shot) (#1) 2024 01/20/2018 (Unable to do), 10/11/2015 DTap/Tdap Vaccines (2 - Td or Tdap) 11/23/2024 11/23/2014, 1989 Mammogram 11/24/2024 11/24/2023, 04/24, 03/14/2021, Additional history exists Albumin/Creatinine Ratio 07/13/2025 07/13/2022 Diabetes Screening 07/13/2025 07/13/2022, 0 07/27/2021, 07/30/2020, Additional history exists Colonoscopy 01/13/2026 01/13/2016, 01/13/2016 Colorectal Cancer Screening 01/13/2026 Pap Smear 12/14/2026 12/14/2023, 11/2017, 11/23/2014, Additional history exists Lipid Panel 07/13/2027 07/13/2022, 06/2020, 12/02/2014, Additional history exists Cervical Cancer [...] filedocumented as of this encounter Care Teams Base Loader Relationship Specialty Start Date End Date Manuel February Jerry, PAMartinC [address] [place] [address] PCP - General Physician Devops Engineer 05/11/17 documented as of this encounter
--- OUTSIDE RECORDS SUMMARY | 2024-11-20 23:43 | External Medical Summary | Summary of Care ---
Author Name Unknown Organization [facility] Address [address] [facility] [address] Phone [phone] Care Team Providers Care Correspondence School Teacher Name Role Phone Opal Jackson PA-C Primary Care Provider [phone] Reason for Visit * Reason Onset Date Comments Blood Pressure Check 07/21/2024 Appointment 07/21/2024 Encounter Details Date Type Department Care Team (Late st Contact Info) Description 07/21/2024 Telephone Family Practice [facility] [place] [address] [facility] [place] [address] Opal Jackson PA-C [address] [facility] [place] [id number] Blood Pressure Check; Appointment Allergies Active Allergy Reactions Criticality Noted Date Comments [place] Karli Hives High 02/15/2012 Real almonds (food) cause: breathing problems Other Allergy (See Comments) 06/09/2012 Fiber glass (at work) causes hives on skin Penicillins 09/20/2000 thrush documented as of this encounter (statuses as of 08/02/2024) Medications Medication Sig Dispensed Refills Start Date [...] as of this encounter (statuses as of 08/02/2024) Active Problems Problem Noted Date Diagnosed Date [...] as of this encounter (statuses as of 08/02/2024) Resolved Problems Problem Noted Date Diagnosed Date Resolved Date Morbid obesity, BMI not known 07/24/2006 02/18/2010 Overview: Per Obesity Taxonomy Varicella without complication 04/20/2003 02/08/2019 documented as of this encounter (statuses as of 08/02/2024) Immunizations Name Administration Dates Next Due Seasonal [...] encounter Miscellaneous Notes * Telephone Encounter - Vicky Viera OSA - 08/02/2024 9:35 AM EDT Patient is scheduled for 08/03/24 at 11 am for Nurse visit for BP. Also, patient was advised to being home BP cuff. Patient stated she does not have one she goes different places that offer free checking's to have them done. * Telephone Encounter - Ashley Muniz LPN - 08/01/2024 9:15 AM EDT Please call patient and schedule nurse visit for BP check/bring home cuff * Telephone Encounter - Opal Jackson PA-C - 07/31/2024 7:07 PM EDT Is the blood pressure noted from her cuff? Would recommend a nurse visit where she would bring her cuff and compare * Telephone Encounter - Madison Haq OSA [...] 08/03/2024 11:00 AM EDT Nurse Only Ancillary [facility] [address] [place] [address] Nurse Kaye [facility] Pr[address] [place] [address] Scheduled Procedures Name Priority Associated Diagnoses Date/Ti [...] Tdap) 11/23/2024 11/23/2014, 1989 Mammogram 11/24/2024 11/24/2023, /, 03/14/2021, Additional history exists Albumin/Creatinine Ratio 07/13/2025 07/13/2022 Diabetes Screening 07/13/2025 07/13/2022, 0 07/27/2021, 07/30/2020, Additional history exists Colonoscopy 01/13/2026 01/13/2016, 01/13/2016 Colorectal Cancer Screening 01/13/2026 Pap Smear 12/14/2026 12/14/2023, 03/0 11/2017, 11/23/2014, Additional history exists Lipid Panel 07/13/2027 07/13/2022, 09/06/2020, 12/02/2014, Additional history exists Cervical Cancer Screening [...] filedocumented as of this encounter Care Teams Correspondence School Teacher Relationship Specialty Start Date End Date ManuelFebruary CODY Edwards [address] [place], [place] [address] PCP - General Physician High School Tutor 05/11/17 documented as of this encounter"
--- OUTSIDE RECORDS SUMMARY | 2024-11-20 23:43 | External Medical Summary | Summary of Care ---
Author Name Unknown Organization [facility] Address [address] [place] [address] Phone [phone] Care Team Providers Care Rn Clinical Resource Name Role Phone Opal Jackson PA-C Primary Care Provider [phone] Reason for Visit * Reason Onset Date Comments Appointment 05/29/2024 Encounter Details Date Type Department Care Team (Late st Contact Info) Description 05/29/2024 Telephone Nutrition & Weight Management, [place] [address] [place], [place] [phone] Kenyetta Jimenez CRNP [address] [place] [address] Appointment Allergies Active Allergy Reactions Criticality Noted Date Comments [place] Karli Hives High 02/15/2012 Real almonds (food) cause: breathing problems Other Allergy (See Comments) 06/09/2012 Fiber glass (at work) causes hives on skin Penicillins 09/20/2000 thrush documented as of this encounter (statuses as of 06/01/2024) Medications Medication Sig Dispensed Refills Start Date End Date Status Multivitamin Adult Oral Tablet Chewable Take 1 Tab by mouth daily. Active Acetaminophen 500 MG Oral Tablet (Tylenol) Take 2 Tablets by mouth in the morning and 2 Tablets at noon and 2 Tablets before bedtime. Active hydroCHLOROthiazi de 25 MG Oral Tablet (Hydrodiuril)Clemencia cations:HTN, goal below 140/90 Take 1 Tablet by mouth in the morning. 90 Tablet 1 12/02/2023 05/31/2024 Discontinued documented as of this encounter (statuses as of 06/01/2024) Active Problems Problem Noted Date Diagnosed Date [...] as of this encounter (statuses as of 06/01/2024) Resolved Problems Problem Noted Date Diagnosed Date Resolved Date Morbid obesity, BMI not known 07/24/2006 02/18/2010 Overview: Per Obesity Taxonomy Varicella without complication 04/20/2003 02/08/2019 documented as of this encounter (statuses as of 06/01/2024) Immunizations Name Administration Dates Next Due Seasonal Influenza, Split, IIV3, With Preserve, Inj 10/11/2015 TD - Tetanus/Diptheria (ADULT) 1989 TDAP [...] Telephone Encounter - Jia El OSA - 05/29/2024 10:09 AM EDT LM to schedule documented in this encounter Plan of Treatment Scheduled Procedures Name Priority Associated Diagnoses Date/Ti me COLONOSCOPY FLEXIBLE PROXIMA L DIAGNOSTIC Recall Encounter for screening colonoscopy Health Maintenance Due Date Last Done Comments Cologuard 2006 Fecal Occult Blood Test 2006 Sigmoidoscopy 2006 Zoster Vaccines (1 of 2) 2011 GFR 07/13/2023 07/13/2022, 0903/2021, 07/30/2020, Additional history exists COVID-19 Vaccine (1 - 2022- season) 2023 Depression Screening 11/10/2023 11/10/2022, 01/20/2018 (Discussed) Influenza Vaccine (FLU shot) (#1) 2024 01/20/2018 (Unable to do), 10/11/2015 DTaP,Tdap,and Td Vaccines (2 - Td or Tdap) 11/23/2024 11/23/2014, 1989 Mammogram 11/24/2024 11/24/2023, 06/3 , 03/14/2021, Additional history exists Albumin/Creatinine Ratio 07/13/2025 [...] filedocumented as of this encounter Care Teams Rn Clinical Resource Relationship Specialty Start Date End Date Manuel February CODY Edwards [address] [place] [address] PCP - General Physician Twisthand 05/11/17 documented as of this encounter
--- OUTSIDE RECORDS SUMMARY | 2024-11-20 23:43 | External Medical Summary | Summary of Care ---
Author Name Unknown Organization [facility] Address [address] [facility] [address] Phone [phone] Care Team Providers Care Paving Stone Installer Name Role Phone Opal Jackson PA-C Primary Care Provider [phone] Reason for Visit * Reason Onset Date Comments Advice 07/19/2024 Encounter Details Date Type Department Care Team (Late st Contact Info) Description 07/19/2024 Telephone Family Practice [facility] [address] [place] [address] Opal Jackson PA-C [address] [place] [address] Advice Allergies Active Allergy Reactions Criticality Noted Date Comments [place] Karli Hives High 02/15/2012 Real almonds (food) cause: breathing problems Other Allergy (See Comments) 06/09/2012 Fiber glass (at work) causes hives on skin Penicillins 09/20/2000 thrush documented as of this encounter (statuses as of 07/20/2024) Medications Medication Sig Dispensed Refills Start Date [...] as of this encounter (statuses as of 07/20/2024) Active Problems Problem Noted Date Diagnosed Date [...] as of this encounter (statuses as of 07/20/2024) Resolved Problems Problem Noted Date Diagnosed Date Resolved Date Morbid obesity, BMI not known 07/24/2006 02/18/2010 Overview: Per Obesity Taxonomy Varicella without complication 04/20/2003 02/08/2019 documented as of this encounter (statuses as of 07/20/2024) Immunizations Name Administration Dates Next Due Seasonal [...] encounter Miscellaneous Notes * Telephone Encounter - Dayanara Dozier OSA - 07/20/2024 3:18 PM EDT Patient has been notified of the message. Patient has been scheduled. * Telephone Encounter - Katiana Villarreal RN - 07/20/2024 2:19 PM EDT Left message for pt to call back. Please assist her in scheduling a nurse clinic visit for BP check. * Telephone Encounter - Opal Jackson PA-C - 07/20/2024 12:56 PM EDT Recommend a repeat blood pressure through our nurse clinic. * Telephone Encounter - Jennifer Escobar OSA - 07/19/2024 3:49 PM EDT Pt went to the dentist today and BP was 161/162. Pt would like to know if her current medication should be changed. Call PT @ [phone] documented in this encounter Plan of Treatment Upcoming Encounters Date Type Department Care Team (Late st Contact Info) Description 07/21/2024 11:00 AM EDT Nurse Only [facility] Malik [address] [facility] [place] [address] Nurse Jose A Restrepo [facility] [address] [facility] [place] [address] Scheduled Procedures Name Priority Associated Diagnoses Date/Ti me COLONOSCOPY FLEXIBLE PROXIMA L DIAGNOSTIC Recall Encounter for screening colonoscopy Health Maintenance Due Date Last Done Comments Cologuard 2006 Fecal Occult Blood Test 2006 Sigmoidoscopy 2006 Zoster Vaccines (1 of 2) 2011 GFR 07/13/2023 07/13/2022, 09/0 03/2021, 07/30/2020, Additional history exists COVID-19 Vaccine (1 - 24 season) 2023 Depression Screening 11/10/2023 11/10/2022, 01/20/2018 [...] filedocumented as of this encounter Care Teams Paving Stone Installer Relationship Specialty Start Date End Date Manuel February Jerry, CODY [facility] Ir[address] Ose[address] [place], [place] [address] PCP - General Physician Lot Associate 05/11/17 documented as of this encounter
--- OUTSIDE RECORDS SUMMARY | 2024-11-20 23:43 | External Medical Summary | Summary of Care ---
Author Name Unknown Organization [facility] Address [address] [place] [address] Phone [phone] Care Team Providers Care Physician Vice President Name Role Phone Opal Jackson PA-C Primary Care Provider [phone] Reason for Visit * Reason Onset Date Comments Appointment 05/29/2024 Encounter Details Date Type Department Care Team (Late st Contact Info) Description 05/29/2024 Telephone Nutrition & Weight Management, [place] [address] [place], [place] [id number] Kenyetta Jimenez CRNP [address] [place] [address] Appointment Allergies Active Allergy Reactions Criticality Noted Date Comments [place] Karli Hives High 02/15/2012 Real almonds (food) cause: breathing problems Other Allergy (See Comments) 06/09/2012 Fiber glass (at work) causes hives on skin Penicillins 09/20/2000 thrush documented as of this encounter (statuses as of 05/29/2024) Medications Medication Sig Dispensed Refills Start Date [...] as of this encounter (statuses as of 05/29/2024) Active Problems Problem Noted Date Diagnosed Date [...] as of this encounter (statuses as of 05/29/2024) Resolved Problems Problem Noted Date Diagnosed Date Resolved Date Morbid obesity, BMI not known 07/24/2006 02/18/2010 Overview: Per Obesity Taxonomy Varicella without complication 04/20/2003 02/08/2019 documented as of this encounter (statuses as of 05/29/2024) Immunizations Name Administration Dates Next Due Seasonal [...] Additional history exists COVID-19 Vaccine (1 - season) 2023 Depression Screening 11/10/2023 11/10/2022, [...] filedocumented as of this encounter Care Teams Physician Vice President Relationship Specialty Start Date End Date Manuel February Jerry, CODY [address] [place], [place] [address] PCP - General Physician Logistic Specialist 05/11/17 documented as of this encounter
--- OUTSIDE RECORDS SUMMARY | 2024-11-20 23:43 | External Medical Summary | Summary of Care ---
Author Name Unknown Organization [facility] Address [address] [place] [address] Phone [phone] Care Team Providers Care Student Ambassador Name Role Phone Opal Jackson PA-C Primary Care Provider [phone] Reason for Visit * Reason Comments eRx-Medication Refill Encounter Details Date Type Department Care Team (Late st Contact Info) Description 05/30/2024 Refill Family Practice [facility] [address] [place] [address] Opal Jackson PA-C 200 [facility] [place] [address] HTN, goal below 140/90 Allergies Active Allergy Reactions Criticality Noted Date Comments [place] Karli Hives High 02/15/2012 Real almonds (food) cause: breathing problems Other Allergy (See Comments) 06/09/2012 Fiber glass (at work) causes hives on skin Penicillins 09/20/2000 thrush documented as of this encounter (statuses as of 05/31/2024) Medications Medication Sig Dispensed Refills Start Date End Date Status Multivitamin Adult Oral Tablet Chewable Take 1 Tab by mouth daily. Active Acetaminophen 500 MG Oral Tablet (Tylenol) Take 2 Tablets by mouth in the morning and 2 Tablets at noon and 2 Tablets before bedtime. Active hydroCHLOROthiazi de 25 MG Oral Tablet (Hydrodiuril)Clemencia cations:HTN, goal below 140/90 TAKE 1 TABLET BY MOUTH EVERY DAY IN THE MORNING 90 Tablet 1 05/31/2024 Active hydroCHLOROthiazi de 25 MG Oral Tablet (Hydrodiuril)Clemencia cations:HTN, goal below 140/90 Take 1 Tablet by mouth in the morning. 90 Tablet 1 12/02/2023 05/31/2024 Discontinued documented as of this encounter (statuses as of 05/31/2024) Active Problems Problem Noted Date Diagnosed Date [...] as of this encounter (statuses as of 05/31/2024) Resolved Problems Problem Noted Date Diagnosed Date Resolved Date Morbid obesity, BMI not known 07/24/2006 02/18/2010 Overview: Per Obesity Taxonomy Varicella without complication 04/20/2003 02/08/2019 documented as of this encounter (statuses as of 05/31/2024) Immunizations Name Administration Dates Next Due Seasonal [...] encounter Miscellaneous Notes * Telephone Encounter - Opal Jackson PA-C - 05/31/2024 1:16 PM EDTSigned Prescriptions: Disp Refills hydroCHLOROthiazide 25 MG Oral Tablet (Hyd*90 Tab*1 Sig: TAKE 1 TABLET BY MOUTH EVERY DAY IN THE MORNING Authorizing Provider: OPAL JACKSON * Telephone Encounter - Micha Bentley [facility] - 05/31/2024 12:38 PM EDT Pending Prescriptions: Disp Refills hydroCHLOROthiazide 25 MG Oral Tablet [Pha*90 Tab*1 Sig: TAKE 1 TABLET BY MOUTH EVERY DAY IN THE MORNING * Telephone Encounter - Micha Bentley RP - 05/31/2024 12:37 PM EDT Unable to authorize medication refills for pended medication(s) at this time. Part of the protocol criteria used for refill authorization was not satisfied. Patient needs updated labs. Please approveif appropriate. Pending Prescriptions: Disp Refills hydroCHLOROthiazide 25 MG Oral Tablet (Hy*90 Tab*1 Sig: TAKE 1 TABLET BY MOUTH EVERY DAY IN THE MORNING Micha Collazo, BandarD Clinical Pharmacist [facility] [phone] 05/31/2024,12:37 PM documented in this encounter Plan of Treatment [...] encounter Visit Diagnoses Diagnosis HTN, goal below 140/90 Unspecified essential hypertension documented in this encounter Care Teams Student Ambassador Relationship Specialty Start Date End Date Manuel February CODY [facility] [address] Ose[address] [place] [address] PCP - General Physician Jewelry Sales Representative 05/11/17 documented as of this encounter
--- OUTSIDE RECORDS SUMMARY | 2024-11-20 23:43 | External Medical Summary | Summary of Care ---
Author Name Unknown Organization [facility] Address [address] [facility] [address] Phone [phone] Care Team Providers Care Patent Legal Assistant Name Role Phone Opal Jackson PA-C Primary Care Provider [phone] Reason for Visit * Reason Onset Date Comments Blood Pressure Check 07/21/2024 Encounter Details Date Type Department Care Team (Late st Contact Info) Description 07/21/2024 Telephone Family Practice [facility] [address] [facility] [place] [address] Opal Jackson PA-C 200 [facility] [place] [address] Blood Pressure Check Allergies Active Allergy Reactions Criticality Noted Date Comments [place] Karli Hives High 02/15/2012 Real almonds (food) cause: breathing problems Other Allergy (See Comments) 06/09/2012 Fiber glass (at work) causes hives on skin Penicillins 09/20/2000 thrush documented as of this encounter (statuses as of 07/25/2024) Medications Medication Sig Dispensed Refills Start Date [...] as of this encounter (statuses as of 07/25/2024) Active Problems Problem Noted Date Diagnosed Date [...] as of this encounter (statuses as of 07/25/2024) Resolved Problems Problem Noted Date Diagnosed Date Resolved Date Morbid obesity, BMI not known 07/24/2006 02/18/2010 Overview: Per Obesity Taxonomy Varicella without complication 04/20/2003 02/08/2019 documented as of this encounter (statuses as of 07/25/2024) Immunizations Name Administration Dates Next Due Seasonal [...] (1 of 2) 2011 GFR 07/13/2023 07/13/2022, 09/03/2021, 07/30/2020, Additional history exists Depression Screening 11/10/2023 [...] filedocumented as of this encounter Care Teams Patent Legal Assistant Relationship Specialty Start Date End Date Manuel Opal CODY [facility] [address] [place] [address] PCP - General Physician Cantilever Crane Operator 05/11/17 documented as of this encounter"
--- OUTSIDE RECORDS SUMMARY | 2024-11-20 23:43 | External Medical Summary | Summary of Care ---
Author Name Unknown Organization [facility] Address [address] [facility] [address] Phone [phone] Care Team Providers Care Title One Kindergarten Teacher Name Role Phone Opal Jackson PA-C Primary Care Provider [phone] Reason for Visit * Reason Onset Date Comments Blood Pressure Check 07/21/2024 Encounter Details Date Type Department Care Team (Late st Contact Info) Description 07/21/2024 Telephone Family Practice [facility] [address] [facility] [place] [address] Opal Jackson PA-C [address] [facility] [place] [address] Blood Pressure Check Allergies Active Allergy Reactions Criticality Noted Date Comments [place] Karli Hives High 02/15/2012 Real almonds (food) cause: breathing problems Other Allergy (See Comments) 06/09/2012 Fiber glass (at work) causes hives on skin Penicillins 09/20/2000 thrush documented as of this encounter (statuses as of 08/01/2024) Medications Medication Sig Dispensed Refills Start Date [...] as of this encounter (statuses as of 08/01/2024) Active Problems Problem Noted Date Diagnosed Date [...] as of this encounter (statuses as of 08/01/2024) Resolved Problems Problem Noted Date Diagnosed Date Resolved Date Morbid obesity, BMI not known 07/24/2006 02/18/2010 Overview: Per Obesity Taxonomy Varicella without complication 04/20/2003 02/08/2019 documented as of this encounter (statuses as of 08/01/2024) Immunizations Name Administration Dates Next Due Seasonal [...] encounter Miscellaneous Notes * Telephone Encounter - Ashley Muniz LPN [...] filedocumented as of this encounter Care Teams Title One Kindergarten Teacher Relationship Specialty Start Date End Date Manuel February CODY [facility] [address] [facility] [place] [address] PCP - General Physician Food Processing Chemist 05/11/17 documented as of this encounter"
--- OUTSIDE RECORDS SUMMARY | 2024-11-20 23:43 | External Medical Summary | Summary of Care ---
Author Name Unknown Organization [facility] Address [address] [facility] [address] Phone [phone] Care Team Providers Care Velvet Weaver Name Role Phone Opal Jackson PA-C Primary Care Provider [phone] Reason for Visit * Reason Comments Hand Pain right Encounter Details Date Type Department Care Team (Late st Contact Info) Description 08/21/2024 11:20 AM EDT Office Visit Family Practice [facility] Kaye [place] [address] [facility] [place] [address] Chuck Dejesus, DO [address] [facility] [place] [address] Carpal tunnel syndrome of right wrist* Allergies Active Allergy Reactions Criticality Noted Date Comments [place] Karli Hives High 02/15/2012 Real almonds (food) cause: breathing problems Other Allergy (See Comments) 06/09/2012 Fiber glass (at work) causes hives on skin Penicillins 09/20/2000 thrush documented as of this encounter (statuses as of 08/21/2024) Medications Medication Sig Dispensed Refills Start Date End Date Status Multivitamin Adult Oral Tablet Chewable Take 1 Tab by mouth daily. Active hydroCHLOROthiazi de 25 MG Oral Tablet (Hydrodiuril)Clemencia cations:HTN, goal below 140/90 TAKE 1 TABLET BY MOUTH EVERY DAY IN THE MORNING 90 Tablet 1 05/31/2024 Active Acetaminophen 500 MG Oral Tablet (Tylenol) Take 2 Tablets by mouth in the morning and 2 Tablets at noon and 2 Tablets before bedtime. 08/21/2024 Discontinued (Medication List Clean Up) documented as of this encounter (statuses as of 08/21/2024) Active Problems Problem Noted Date Diagnosed Date [...] as of this encounter (statuses as of 08/21/2024) Resolved Problems Problem Noted Date Diagnosed Date Resolved Date Morbid obesity, BMI not known 07/24/2006 02/18/2010 Overview: Per Obesity Taxonomy Varicella without complication 04/20/2003 02/08/2019 documented as of this encounter (statuses as of 08/21/2024) Immunizations Name Administration Dates Next Due Seasonal [...] Sign Reading Time Taken Comments Blood Pressure 118/74 08/21/2024 11:26 AM EDT Pulse 84 08/21/2024 11:26 AM EDT Temperature 36.8 C (98.2 F) 08/21/2024 11:26 AM E DT Respiratory Rate 18 08/21/2024 11:26 AM EDT Oxygen Saturation - - Inhaled Oxygen Concentration - - Weight - - Height - - Body Mass Index - - documented in this encounter Progress Notes * Chuck Dejesus, DO - 08/21/2024 11:41 AM EDT Subjective: Sana Cisse is a 63 year old female. Chief Complaint Patient presents with Hand Pain right HPI: R wrist started to hurt and burn at work Wednesday. She tried heat and a muscle rub and feels like it helped. No accident or injury. No pop or crack. MAybe some mild swelling. No bruising. It hurts in her R wrist and some in the back of her hand. She has had numbness in her R hand in the past. The numbness is worse with this. Opal discussed an EMG with her in the past. Whole hand feels numb, worse in finger. PMHx, meds, and allergies reviewed Patient Active Problem List Diagnosis ADVANCE DIRECTIVE INFORMATION Systemic lupus erythematosus (HCC) DIFFUS CYSTIC MASTOPATHY HTN, goal below 140/90 Obesity, morbid (more than 100 lbs over ideal weight or BMI > 40) ([facility]) Primary osteoarthritis of both knees Arthritis of right ankle Current Outpatient Medications Medication Sig Dispense Refill Multivitamin Adult Oral Tablet Chewable Take 1 Tab by mouth daily. hydroCHLOROthiazide 25 MG Oral Tablet (Hydrodiuril) TAKE 1 TABLET BY MOUTH EVERY DAY IN THE [id number] Tablet 1 No current facility-administered medications for this visit. Review of patient's allergies indicates: Allergen Reactions [place] Karli Hives Real almonds (food) cause: breathing problems Other Allergy (See Comments) Fiber glass (at work) causes hives on skin Penicillins thrush OBJECTIVE: BP 118/74 | Pulse 84 | Temp 36.8 C (98.2 F) (Tympanic) | Resp 18 | LMP 05/22/2012 Estimated body mass index is 42.11 kg/m as calculated from the following: Height as of 06/30/23: 1.651 m (5' 5"). Weight as of 12/14/23: 114.8 kg (253 lb 0.6 oz). BP Readings from Last 3 Encounters: 08/21/24 118/74 08/03/24 131/60 07/21/24 124/70 Wt Readings from Last 3 Encounters: 12/14/23 114.8 kg (253 lb 0.6 oz) 06/30/23 108 kg (238 lb) 11/10/22 108 kg (238 lb 1.3 oz) ROS: Negative except for above PHYSICAL EXAM: General: alert, healthy, and no distress Head: Normocephalic, No masses, lesions, tenderness or abnormalities Extremities: less than 2 second capillary refill, no joint deformities, effusion, or inflammation ASSESSMENT/Plan Carpal tunnel syndrome of right wrist (Primary) I spent a total of 20 minutes on the date of service in preparation, delivery, and documentation ofthe care provided to this patient, excluding any time spent on the performance of any procedure or separately billable services. We discussed likelihood of this being CTS chronically that was exacerbated recently. EMG discussed.She is not excited for this and not at a point of wanting surgery anyway. Will start bracing it with work. The above was discussed and understanding was expressed. Chuck Dejesus DO documented in this encounter Nursing Notes * Beatrice Santiago LPN - 08/21/2024 11:25 AM EDT Patient reports some pain in her right hand and wrist, she said it almost felt like a burning pain.She used a muscle rub and some heat on it over the weekend and it helped a little bit but she's still having pain. 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 documented in this encounter Plan of Treatment [...] as of this encounter Visit Diagnoses Diagnosis Carpal tunnel syndrome of right wrist- Primary Carpal tunnel syndrome documented in this encounter Care Teams Velvet Weaver Relationship Specialty Start Date End Date Manuel February Jerry, CODY [address] [place] [address] [place] [address] PCP - General Physician Supervisor Car And Yard 05/11/17 documented as of this encounter
--- OUTSIDE RECORDS SUMMARY | 2024-11-20 23:43 | External Medical Summary | Summary of Care ---
Author Name Unknown Organization [facility] Address [address] [facility] [address] Phone [phone] Care Team Providers Care Decorating Machine Tender Name Role Phone Opal Jackson PA-C Primary Care Provider [phone] Reason for Visit * Reason Onset Date Comments Blood Pressure Check 07/21/2024 Encounter Details Date Type Department Care Team (Late st Contact Info) Description 07/21/2024 Telephone Family Practice [facility] 200 [facility] [place] [address] Opal Jackson PA-C 200 [facility] [place] [address] Blood Pressure Check Allergies Active Allergy Reactions Criticality Noted Date Comments [place] Karli Hives High 02/15/2012 Real almonds (food) [...] filedocumented as of this encounter Care Teams Decorating Machine Tender Relationship Specialty Start Date End Date Manuel February CODY [facility] [address] [place] [place] [id number] PCP - General Physician Brine Tank Operator 05/11/17 documented as of this encounter"
--- OUTSIDE RECORDS SUMMARY | 2024-11-20 23:43 | External Medical Summary | Summary of Care ---
Author Name Unknown Organization [facility] Address [address] [facility] [address] Phone [phone] Care Team Providers Care Car Head Liner Installer Name Role Phone Opal Jackson PA-C Primary Care Provider Reason for Visit * Reason Onset Date Comments Blood Pressure Check 07/21/2024 Encounter Details Date Type Department Care Team (Late st Contact Info) Description 07/21/2024 Telephone Family Practice [facility] 200 [facility] [place] [address] Opal Jackson PA-C 200 [facility] [place] [address] Blood Pressure Check Allergies Active Allergy Reactions Criticality Noted Date Comments [place] Karli Hives High 02/15/2012 Real almonds (food) [...] filedocumented as of this encounter Care Teams Car Head Liner Installer Relationship Specialty Start Date End Date Manuel February CODY [facility] [address] [place] [id number] PCP - General Physician Magnaflux Operator 05/11/17 documented as of this encounter"
--- OUTSIDE RECORDS SUMMARY | 2024-11-20 23:43 | External Medical Summary | Summary of Care ---
Author Name Unknown Organization [facility] Address [address] [facility] [address] Phone [phone] Care Team Providers Care Glaciologist Name Role Phone Opal Jackson PA-C Primary Care Provider [phone] Reason for Visit * Reason Onset Date Comments Blood Pressure Check 07/21/2024 Encounter Details Date Type Department Care Team (Late st Contact Info) Description 07/21/[address] [facility] 200 [facility] [place] [address] Opal Jackson PA-C 200 [facility] [place] [address] Blood Pressure Check Allergies Active Allergy Reactions Criticality Noted Date Comments [place] Karli Hives High 02/15/2012 Real almonds (food) [...] (1 of 2) 2011 GFR 07/13/2023 07/13/2022, 090 03/2021, 07/30/2020, Additional history exists Depression Screening [...] Cancer Screening 01/13/2026 Pap Smear 12/14/2026 12/14/2023, 030 11/2017, 11/23/2014, Additional history exists Lipid Panel [...] filedocumented as of this encounter Care Teams Glaciologist Relationship Specialty Start Date End Date Manuel February Jerry, CODY [address] [place] [address] PCP - General Physician Wearing Apparel Folder 05/11/17 documented as of this encounter"
--- NOTE | 2024-11-20 23:54 | Ultrasound Report ---
Exam(s): US GALLBLADDER EXAM: US Abdomen Limited, Right Upper Quadrant CLINICAL HISTORY: Reason for exam: transaminitis; hyperbilirubinemia. TECHNIQUE: Real-time ultrasound of the right upper quadrant with image documentation. COMPARISON: No relevant prior studies available. FINDINGS: Liver: The liver is enlarged and of increased echogenicity.. No intrahepatic bile duct dilation. Gallbladder: The gallbladder is distended containing sludge as well as small calculi. There is a possible 3 mm polyp within the gallbladder. Gallbladder wall measured 3 mm. Negative Renteria sign was reported. Common bile duct: The common bile duct is dilated at 1.8 cm.. Pancreas: The pancreatic duct is dilated at 8 mm.. Right kidney: No stones. No hydronephrosis. IMPRESSION: The gallbladder is distended containing sludge as well as small calculi. There is a possible 3 mm polyp within the gallbladder. The common bile duct is dilated at 1.8 cm. The pancreatic duct is dilated at 8 mm. The liver is enlarged and of increased echogenicity which may be due to fatty infiltration and/or hepatocellular disease. Electronically signed by: Luc Garcia MD 11/20/24 23:53 PM
--- NOTE | 2024-11-20 23:54 | CT Scan Report ---
Exam(s): CT ABDOMEN + PELVIS With Contrast IV Amt: 93 ml optiray 320 EXAM: CT Abdomen and Pelvis With Intravenous Contrast CLINICAL HISTORY: Reason for exam: hyperbilirubinemia; transaminitis. TECHNIQUE: Axial computed tomography images of the abdomen and pelvis with intravenous contrast. CTDI is 35.42 mGy and DLP is 1241.63 mGy-cm. Automated exposure control was utilized for the study. A dose lowering technique was utilized adhering to the principles of ALARA. CONTRAST: Patient received 93 ml optiray 320 of IV contrast COMPARISON: Ultrasound of the same date.. FINDINGS: Lung bases: No consolidation. ABDOMEN: Liver: The liver is enlarged. Gallbladder and bile ducts: Gallbladder is distended. No calcified stones. There is intra-and extrahepatic biliary ductal dilatation. Pancreas: The pancreatic duct is dilated at 9 mm. There is inhomogeneity noted in the pancreatic head.. Spleen: The spleen is enlarged.. Adrenals: No mass. Kidneys and ureters: No hydronephrosis. There is a 3 cm lucency noted in the right kidney. Stomach and bowel: There is a small hiatal hernia. The stomach is relatively decompressed. There is air and stool noted in the colon. There are diverticula present on the colon. No significant inflammatory changes are seen.. PELVIS: Appendix: Unremarkable CT scan appearance noted the appendix.. Bladder: No calculi are noted within the bladder.. Reproductive: Unremarkable as visualized. ABDOMEN and PELVIS: Intraperitoneal space: No free air. No significant fluid collection. Bones/joints: There are degenerative changes in the spine. There is a bilateral spondylolysis with a grade 1 spondylolisthesis of L5 on S1.. Soft tissues: Unremarkable. Vasculature: No abdominal aortic aneurysm. Lymph nodes: . No enlarged lymph nodes. IMPRESSION: The gallbladder is distended. There is intra-and extra hepatic biliary ductal dilatation present. Pancreatic duct is dilated. There is inhomogeneity in the pancreatic head. An underlying mass cannot be excluded. Hepatosplenomegaly. Small hiatal hernia. Diverticulosis. There is a possible right renal cyst. If further evaluation is clinically necessary, consider correlation with MRI/MRCP. Electronically signed by: Luc Garcia MD 11/20/24 23:53 PM
[2024-11-20 23:57] LABS: Appearance Urine Clear (Clear); Bacteria Urine Automated 4+ (None Seen); Bilirubin Urine 2+ (Negative); Blood Urine Negative (Negative); Color Urine Dark Yellow; Epithelial Cell Urine Auto 0-2 /hpf (0-2); Glucose Urine UA 3+ (Negative); Ketones Urine Negative (Negative); Leukocyte Esterase Urine Negative (Negative); Nitrite Urine Positive (Negative); Protein Urine Trace (Negative); RBC Urine Automated 0-2 /hpf (0-2); Specific Gravity Urine 1.018 (1.000-1.030); Urobilinogen Urine Negative (Negative); WBC Urine Automated 0-5 /hpf (0-5); pH Urine 5.5 (4.5-7.5)
[2024-11-21] MEDS: PIPERACILLIN/TAZOBACTAM 4.5 GM/100 ML BAG IV ONE ×2 (01:04→03:48)
[2024-11-21] MEDS ORDERED: PROMETHAZINE 12.5 MG/50.5 ML BAG IV PRN (01:11)
[2024-11-21] MEDS: lisinopril 2.5 MG TAB PO STA (02:26)
[2024-11-21] MEDS: POTASSIUM CHLORIDE CRTAB 20 MEQ TABCR PO STA (02:27)
[2024-11-21] MEDS ORDERED: GLUCOSE 40% GEL 15 GM TUBE PO PRN (02:52)
[2024-11-21] MEDS ORDERED: GLUCAGON FOR INJ 1 MG VIAL SQ PRN (02:52)
[2024-11-21] MEDS ORDERED: DEXTROSE 50% 50 ML SYRINGE IV PRN (02:52)
[2024-11-21] MEDS ORDERED: CARBOHYDRATES FOR HYPOGLYCEMIA PO PRN (02:52)
[2024-11-21] MEDS ORDERED: GLUCOSE 10 TAB/TUBE PO PRN (02:52)
[2024-11-21] MEDS: LANTUS PER UNIT CHARGE SQ STA (03:42)
[2024-11-21] MEDS: POTASSIUM CHLORIDE 20 MEQ in PLASMA-LYTE A 1,000 ML IV ONE (03:43)
[2024-11-21] MEDS: INSULIN ASPART PER UNIT CHARGE SC SCH ×2 (03:45→06:14)
[2024-11-21 03:48] LABS: Base Excess VBG 1.5 mEq/L; HCO3 VBG 27 mmol/L; Oxygen Saturation VBG 60.2 %; PCO2 VBG 43 mmHg (38-50); PO2 VBG 36 mmHg
--- NOTE | 2024-11-21 03:53 | History & Physical Report ---
Date of Service November 21, 2024 Assessment & Plan (1) Sepsis: Plan: SIRS criteria met (leukopenia and tachycardia upon arrival at the ER) Secondary to biliary obstruction, complicated UTI New diagnosis DM2, outpatient hemoglobin A1c of 7.7 hypertension, elevated secondary to illness Hypokalemia secondary to illness/diuretic Rx daily alcohol intake, at risk drinking, patient denies abuse concerns Human metapneumovirus infection, patient with minimal RTI symptoms. [facility] GI specialist on-call recommended transfer to [facility] for ERCP services. Patient kindly accepted for transfer by Dr. Muir of the hospitalist service following discussion with Dr. Villeda of GI. Follow MRCP result Keep n.p.o. in anticipation of procedure. Replace electrolytes, hold home diuretic Rx Initiate losartan for BP control Basal bolus insulin adjusted for n.p.o. status, ISS BG goal 1 10-1 40, DM education ERI S at risk protocol, DT precautions Patient counseled regarding need for alcohol cessation/limits given hepatomegaly on imaging. Supportive management for viral illness. DVT prophylaxis. SCDs re: possible procedure Full code Text document was generated using Scripped voice recognition software. It may contain grammatical or spelling errors. Kindly contact undersigned for clarification of any documentation item in question. History of Present Illness Chief Complaint: Weight loss, unwell, nausea Primary Care Provider: Opal Jackson PA-C History obtained from patient and records. Medical history significant for hypertension, daily alcohol intake, osteoarthritis. Last confinement February 2022 under Orthopedics service for elective right knee surgery. Unremarkable postop stay. Patient unwell for about a month. Poor appetite, postprandial nausea and mild abdominal discomfort symptoms. Light-colored stools. Increased fatigue. Significant weight loss as per patient. Denies headache, chest pain, SOB. Denies depression. Denies cough symptoms or sinus congestion symptoms. Patient seen at PCPs office yesterday. Outpatient x-ray of the abdomen contemplated. Abnormal outpatient labs noted. Glucose 528, anion gap 16, ALT 142, AST 90, alk phos 346, total bilirubin 9.7, Hemoglobin A1c 7.7 Patient directed to ER for evaluation. IV Zosyn administered at the ER. Medical History as above Surgical History : Left breast mass excision, knee surgery, dental surgery Family History : DM, heart disease, RA, breast cancer Personal/Social history : Non-smoker, daily EtOH intake, denies abuse, [employer] employee Allergies Allergy/AdvReac Type Severity Reaction Status Date / Time almond Allergy Severe Anaphylaxis Verified 04/03/22 08:32 Penicillins AdvReac Intermediate Yeast Verified 04/03/22 08:32 infection (tongue) fiber glass Allergy Mild Rash Uncoded 04/03/22 08:32 Home Medications Medication Instructions Recorded Confirmed Type hydrochlorothiazide 25 mg tablet 25 mg PO QAM 10/16/20 11/21/24 History multivitamin 1 tab PO QAM 10/16/20 11/21/24 History Past Med/Surg History Problem List (Updated 11/21/24 @ 09:29 by Ramez Noguera MD) Sepsis Infection due to human metapneumovirus (hMPV) (Acute) Hypomagnesemia (Acute) Acute hypokalemia (Acute) Hyperbilirubinemia (Acute) Transaminitis (Acute) Diabetes (Acute) 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 Left knee pain Status post total left knee replacement Right knee DJD Medical History Encounter for pre-operative examination Encounter for pre-operative examination Hypertension Osteoarthritis Prediabetes Stress incontinence Surgical History H/O removal of cyst History of colonoscopy History of mandibular surgery History of tooth extraction History of total knee replacement Hx of lumpectomy Family History Other No family history of adverse response to anesthesia Social History Smoking Status: Former smoker Second Hand Exposure: Yes ( A CHILD); Do You Dip or Chew Tobacco: No; Hx Alcohol Use: Yes Alcohol type: beer Hx Substance Use: No Preferred Language: [place] Communication Ability: Effective Choral Director Required: No Beliefs That Will Affect Care: None marital status: Single Current Living Situation: Alone How many Children do You have: 0 Feels Safe at Home: Yes Safety Concerns: Feels Safe At This Time Assistive Devices: Cane and Walker Review of Systems Review of Systems: As per HPI, all other systems reviewed and negative Physical Exam Physical Exam: GENERAL: Comfortable, slightly anxious, obese, no respiratory distress SKIN: Normal color, warm HEENT: Ambia palpebral conjunctivae, no ptosis, dry buccal mucosa NECK : Supple, no tenderness CHEST : CTA, no tenderness HEART : RRR, no obvious murmurs ABDOMEN: Some distention, no overt tenderness EXTREMITIES : No LE swelling/tenderness, no other conspicuous deformities noted NEUROLOGIC : Coherent, no facial asymmetry, no other gross focality Results & Data Results & Data Vital Signs (Past 12 Hours) Vital Signs Temp Pulse Pulse Resp BP BP Pulse Ox 11/21/24 02:28 87 14 145/78 H 97 11/21/24 01:00 87 21 165/95 H 94 11/21/24 00:30 78 22 147/88 H 93 11/21/24 00:00 84 21 145/91 H 93 11/20/24 23:30 90 26 H 143/107 H 94 11/20/24 23:01 94 H 25 H 130/90 95 11/20/24 22:30 94 H 24 161/96 H 11/20/24 22:20 77 20 150/88 H 11/20/24 22:11 82 11/20/24 19:54 36.6 C 129 H 18 153/88 H 99 O2 Del Method 11/21/24 02:28 Room Air 11/21/24 01:00 11/21/24 00:30 11/21/24 00:00 11/20/24 23:30 11/20/24 23:01 11/20/24 22:30 11/20/24 22:20 11/20/24 22:11 11/20/24 19:54 Room Air Laboratory Results Laboratory Results WBC 3.70 K/ul (4.8-10.8) L 11/20/24 20:24 RBC 4.13 M/uL (4.20-5.40) L 11/20/24 20:24 Hgb 12.0 g/dl (12.0-16.0) 11/20/24 20:24 Hct 36.3 % (37.0-47.0) L 11/20/24 20:24 MCV 87.9 fL (80.0-100.0) 11/20/24 20:24 MCH 29.1 pg (25.0-34.0) 11/20/24 20:24 MCHC 33.1 g/dL (32.0-36.0) 11/20/24 20:24 RDW Std Deviation 49.7 fL (36.4-46.3) H 11/20/24 20:24 RDW Coeff of Shyann 15.4 % (11.5-14.5) H 11/20/24 20:24 Plt Count 183 K/uL (130-400) 11/20/24 20:24 MPV 13.4 fL (9.4-12.4) H 11/20/24 20:24 Immature Gran % (Auto) 0.3 % 11/20/24 20:24 Neut % (Auto) 55.9 % 11/20/24 20:24 Lymph % (Auto) 30.0 % 11/20/24 20:24 [place] % (Auto) 10.3 % 11/20/24 20:24 Eos % (Auto) 3.0 % 11/20/24 20:24 Baso % (Auto) 0.5 % 11/20/24 20:24 Neut # (Auto) 2.07 K/uL (1.40-6.50) 11/20/24 20:24 Lymph # (Auto) 1.11 K/uL (1.20-3.40) L 11/20/24 20:24 [place] # (Auto) 0.38 K/uL (0.11-0.59) 11/20/24 20:24 Eos # (Auto) 0.11 K/uL (0.00-0.50) 11/20/24 20:24 Baso # (Auto) 0.02 K/uL (0.00-0.20) 11/20/24 20:24 Immature Gran # (Auto) 0.01 K/uL (0.01-0.20) 11/20/24 20:24 VBG pH 7.40 (7.36-7.41) 11/21/24 03:40 VBG pCO2 43 mmHg (38-50) 11/21/24 03:40 VBG pO2 36 mmHg 11/21/24 03:40 VBG HCO3 27 mmol/L 11/21/24 03:40 VBG O2 Saturation 60.2 % 11/21/24 03:40 VBG Base Excess 1.5 mEq/L 11/21/24 03:40 Sodium 133 mmol/L (136-145) L 11/20/24 20:24 Potassium 3.4 mmol/L (3.5-5.1) L 11/20/24 20:24 Chloride 99 mmol/L (98-107) 11/20/24 20:24 Carbon Dioxide 26 mmol/L (21-32) 11/20/24 20:24 Anion Gap 8 (3-11) 11/20/24 20:24 BUN 10 mg/dl (6-23) 11/20/24 20:24 Creatinine 0.95 mg/dl (0.6-1.2) 11/20/24 20:24 Est Cr Clr Drug Dosing 69.7 ml/min 11/20/24 20:24 eGFR 67.32 11/20/24 20:24 BUN/Creatinine Ratio 10.5 (10-20) 11/20/24 20:24 Glucose 442 mg/dl (70-99(Fasting)) H* 11/20/24 20:24 POC Glucose 332 mg/dl (70-99) H* 11/21/24 02:30 Lactate 1.1 mmol/L (0.4-2.0) 11/21/24 00:23 Calcium 9.3 mg/dl (8.6-10.3) 11/20/24 20:24 Phosphorus 2.9 mg/dl (2.5-4.9) 11/20/24 21:50 Magnesium 1.6 mg/dl (1.7-2.4) L 11/20/24 20:24 Total Bilirubin 11.3 mg/dl (0.2-1.0) H 11/20/24 20:24 AST 70 U/L (13-39) H 11/20/24 20:24 ALT 108 U/L (7-52) H 11/20/24 20:24 Alkaline Phosphatase 287 U/L (34-104) H 11/20/24 20:24 Total Protein 8.0 gm/dl (6.0-8.3) 11/20/24 20:24 Albumin 3.7 gm/dl (3.4-5.0) 11/20/24 20:24 Globulin 4.3 gm/dl (2.5-4.0) H 11/20/24 20:24 Albumin/Globulin Ratio 0.9 (0.9-2) 11/20/24 20:24 Lipase 316 U/L (11-82) H 11/20/24 21:50 Urine Color Dark Yellow 11/20/24 23:43 Urine Appearance Clear (Clear) 11/20/24 23:43 Urine pH 5.5 (4.5-7.5) 11/20/24 23:43 Ur Specific [place] 1.018 (1.000-1.030) 11/20/24 23:43 Urine Protein Trace (Negative) H 11/20/24 23:43 Urine Glucose (UA) 3+ (Negative) H 11/20/24 23:43 Urine Ketones Negative (Negative) 11/20/24 23:43 Urine Blood Negative (Negative) 11/20/24 23:43 Urine Nitrite Positive (Negative) A 11/20/24 23:43 Urine Bilirubin 2+ (Negative) H 11/20/24 23:43 Urine Urobilinogen Negative (Negative) 11/20/24 23:43 Ur Leukocyte Esterase Negative (Negative) 11/20/24 23:43 Urine WBC (Auto) 0-5 /hpf (0-5) 11/20/24 23:43 Urine RBC (Auto) 0-2 /hpf (0-2) 11/20/24 23:43 U Hyaline Cast (Auto) 3-5 /lpf (0-2) H 11/20/24 23:43 U Epithel Cells (Auto) 0-2 /hpf (0-2) 11/20/24 23:43 Urine Bacteria (Auto) 4+ (None Seen) H 11/20/24 23:43 Adenovirus (PCR) Not Detected (NotDetected) 11/20/24 20:24 B. pertussis DNA (PCR) Not Detected (NotDetected) 11/20/24 20:24 B.parapertussis DNA PCR Not Detected (NotDetected) 11/20/24 20:24 C. pneumoniae DNA (PCR) Not Detected (NotDetected) 11/20/24 20:24 Coronavirus OC43 (PCR) Not Detected (NotDetected) 11/20/24 20:24 Coronavirus HKU1 (PCR) Not Detected (NotDetected) 11/20/24 20:24 Coronavirus 229E (PCR) Not Detected (NotDetected) 11/20/24 20:24 SARS-CoV-2 (PCR) Not Detected (NotDetected) 11/20/24 20:24 Coronavirus NL63 (PCR) Not Detected (NotDetected) 11/20/24 20:24 Human Metapneumovir PCR DETECTED (NotDetected) A 11/20/24 20:24 Influenza Type A (PCR) Not Detected (NotDetected) 11/20/24 20:24 Influenza Type B (PCR) Not Detected (NotDetected) 11/20/24 20:24 M. pneumoniae (PCR) Not Detected (NotDetected) 11/20/24 20:24 Parainfluenza 1 (PCR) Not Detected (NotDetected) 11/20/24 20:24 Parainfluenza 2 (PCR) Not Detected (NotDetected) 11/20/24 20:24 Parainfluenza 3 (PCR) Not Detected (NotDetected) 11/20/24 20:24 Parainfluenza 4 (PCR) Not Detected (NotDetected) 11/20/24 20:24 RSV (PCR) Not Detected (NotDetected) 11/20/24 20:24 Entero/Rhino (PCR) Not Detected (NotDetected) 11/20/24 20:24 Impressions Abdomen/Pelvis CT 11/20/24 21:06 Exam(s): CT ABDOMEN + PELVIS With Contrast IV Amt: 93 ml optiray 320 EXAM: CT Abdomen and Pelvis With Intravenous Contrast CLINICAL HISTORY: Reason for exam: hyperbilirubinemia; transaminitis. TECHNIQUE: Axial computed tomography images of the abdomen and pelvis with intravenous contrast. CTDI is 35.42 mGy and DLP is 1241.63 mGy-cm. Automated exposure control was utilized for the study. A dose lowering technique was utilized adhering to the principles of ALARA. CONTRAST: Patient received 93 ml optiray 320 of IV contrast COMPARISON: Ultrasound of the same date.. FINDINGS: Lung bases: No consolidation. ABDOMEN: Liver: The liver is enlarged. Gallbladder and bile ducts: Gallbladder is distended. No calcified stones. There is intra-and extrahepatic biliary ductal dilatation. Pancreas: The pancreatic duct is dilated at 9 mm. There is inhomogeneity noted in the pancreatic head.. Spleen: The spleen is enlarged.. Adrenals: No mass. Kidneys and ureters: No hydronephrosis. There is a 3 cm lucency noted in the right kidney. Stomach and bowel: There is a small hiatal hernia. The stomach is relatively decompressed. There is air and stool noted in the colon. There are diverticula present on the colon. No significant inflammatory changes are seen.. PELVIS: Appendix: Unremarkable CT scan appearance noted the appendix.. Bladder: No calculi are noted within the bladder.. Reproductive: Unremarkable as visualized. ABDOMEN and PELVIS: Intraperitoneal space: No free air. No significant fluid collection. Bones/joints: There are degenerative changes in the spine. There is a bilateral spondylolysis with a grade 1 spondylolisthesis of L5 on S1.. Soft tissues: Unremarkable. Vasculature: No abdominal aortic aneurysm. Lymph nodes: . No enlarged lymph nodes. IMPRESSION: The gallbladder is distended. There is intra-and extra hepatic biliary ductal dilatation present. Pancreatic duct is dilated. There is inhomogeneity in the pancreatic head. An underlying mass cannot be excluded. Hepatosplenomegaly. Small hiatal hernia. Diverticulosis. There is a possible right renal cyst. If further evaluation is clinically necessary, consider correlation with MRI/MRCP. Electronically signed by: Luc Garcia MD 11/20/24 23:53 PM Gallbladder Ultrasound 11/20/24 21:23 Exam(s): US GALLBLADDER EXAM: US Abdomen Limited, Right Upper Quadrant CLINICAL HISTORY: Reason for exam: transaminitis; hyperbilirubinemia. TECHNIQUE: Real-time ultrasound of the right upper quadrant with image documentation. COMPARISON: No relevant prior studies available. FINDINGS: Liver: The liver is enlarged and of increased echogenicity.. No intrahepatic bile duct dilation. Gallbladder: The gallbladder is distended containing sludge as well as small calculi. There is a possible 3 mm polyp within the gallbladder. Gallbladder wall measured 3 mm. Negative Renteria sign was reported. Common bile duct: The common bile duct is dilated at 1.8 cm.. Pancreas: The pancreatic duct is dilated at 8 mm.. Right kidney: No stones. No hydronephrosis. IMPRESSION: The gallbladder is distended containing sludge as well as small calculi. There is a possible 3 mm polyp within the gallbladder. The common bile duct is dilated at 1.8 cm. The pancreatic duct is dilated at 8 mm. The liver is enlarged and of increased echogenicity which may be due to fatty infiltration and/or hepatocellular disease. Electronically signed by: Luc Garcia MD 11/20/24 23:53 PM Diagnostic Findings EKG as per my interpretation :
[2024-11-21] MEDS ORDERED: MoRPHine SULFATE 4 MG/ML 1 ML CARP\\VIAL IV PRN (04:00)
[2024-11-21] MEDS ORDERED: PROMETHAZINE 6.25 MG/50.25 ML BAG IV PRN (04:00)
[2024-11-21] MEDS ORDERED: oxyCODONE HCL IR 5 MG TAB (IMMEDIATE RELEASE) PO PRN (04:00)
[2024-11-21] MEDS ORDERED: LORazepam 2 MG/1 ML VIAL IV PRN (04:00)
[2024-11-21] MEDS ORDERED: ACETAMINOPHEN 500 MG TAB PO PRN (04:00)
[2024-11-21 04:11] LABS: Basophils # (auto) 0.02 K/uL (0.00-0.20); Basophils % (auto) 0.5 %; Eosinophils # (auto) 0.13 K/uL (0.00-0.50); Eosinophils % (auto) 3.4 %; Hematocrit (blood only) 37.7 % (37.0-47.0); Hemoglobin 12.6 g/dl (12.0-16.0); Lymphocytes % (auto) 31.6 %; Mean Corpuscular Hemoglobin 29.2 pg (25.0-34.0); Mean Corpuscular Hgb Conc 33.4 g/dL (32.0-36.0); Mean Corpuscular Volume 87.3 fL (80.0-100.0); Mean Platelet Volume 12.8 fL (9.4-12.4); Monocytes # (auto) 0.37 K/uL (0.11-0.59); Monocytes % (auto) 9.7 %; Neutrophils # (auto) 2.08 K/uL (1.40-6.50); Neutrophils % (auto) 54.8 %; Platelet Count 155 K/uL (130-400); RDW Coefficient of Variation 15.5 % (11.5-14.5); RDW Standard Deviation 49.4 fL (36.4-46.3); Red Blood Count 4.32 M/uL (4.20-5.40)
[2024-11-21 04:19] LABS: Albumin Globulin Ratio 0.8 (0.9-2); Albumin Level 3.5 gm/dl (3.4-5.0); BUN Creatinine Ratio 9.4 (10-20); Calcium 8.9 mg/dl (8.6-10.3); Creatinine Clr Calc Pharmacy 77.9 ml/min; Globulin 4.2 gm/dl (2.5-4.0); Magnesium 1.8 mg/dl (1.7-2.4); Potassium 3.7 mmol/L (3.5-5.1); Total Protein 7.7 gm/dl (6.0-8.3)
[2024-11-21 04:22] LABS: INR 1.2 (0.9-1.1); Prothrombin Time 12.4 Seconds (9.0-12.0)
[2024-11-21 04:27] LABS: Thyroid Stimulating Hormone 0.968 uIu/ml (0.300-4.500)
[2024-11-21] MEDS: PROMETHAZINE 12.5 MG/50.5 ML BAG IV STA (04:47)
--- OUTSIDE RECORDS SUMMARY | 2024-11-21 04:47 | External Medical Summary ---
Author Name Unknown Address Unknown Organization [id number]:[facility] [place] [address] [place] [address] Laboratory Report Ordering Provider Test Date Status 11/20/2024 10:40:57 Final Observation Date Value Abnormality Reference (Units ) Status Triglyceride 11/20/2024 10:40:57 206 Above high normal <=174 (mg/dL) Final Triglyceride Reference Range s (mg/dL):
<150 Acceptable
150-174 Borderline high
175-499 High
>=500 Very high
Icterus may interfere with result. Cholesterol 11/20/2024 10:40:57 230 Above high normal <200 (mg/dL) Final Total Cholesterol Reference Ranges (mg/dL):
<200 Desirable
200-239 Borderline high
>=240 High HDL 11/20/2024 10:40:57 25 Below low normal >49 (mg/dL) Final HDL Cholesterol Reference Ra nges (mg/dL):
>=60 High (Desirable)
<50 Low (Undesirable) For Females
<40 Low (Undesirable) For Males NON-HDL CHOLESTEROL 11/20/2024 10:40:57 205 Above high normal <=159 (mg/dL) Final Non-HDL Cholesterol Referenc e Range (mg/dL):
<100 Target level for high risk ASCVD patient
<130 Optimal for general population
130-159 Near optimal for general population
160-189 Borderline High
190-219 High
>=220 Very High LDL, (calculated) 11/20/2024 10:40:57 164 Above high n ormal <=129 (mg/dL) Final LDL Cholesterol Reference Ra nges (mg/dL):
<70 Target level for high risk ASCVD patient
<100 Optimal for general population
100-129 Near optimal for general population
130-159 Borderline high
160-189 High
>=190 Very high Performing Location [facility] [place] [address] [facility] [address]
--- OUTSIDE RECORDS SUMMARY | 2024-11-21 04:47 | External Medical Summary | Summary of Care ---
Author Name Unknown Organization [facility] Address [address] [place] [address] Phone [phone] Care Team Providers Care Animation Producer Name Role Phone Opal Jackson PA-C Primary Care Provider Reason for Visit * Reason Onset Date Comments Advice 11/16/2024 Returning Call 11/20/2024 Encounter Details Date Type Department Care Team (Late st Contact Info) Description 11/16/2024 Telephone Family Practice [facility] [place] [address] [place] [address] Opal Jackson PA-C [address] [facility] [place] [address] Advice; Returning Call Allergies Active Allergy Reactions Criticality Noted Date Comments [place] Karli Hives High 02/15/2012 Real almonds (food) [...] Recorded PHQ Adult Total Score 0 11/10/2022 Comments No Sex and Gender Information Value [...] encounter Miscellaneous Notes * Telephone Encounter - Litzy Sr, DOROTHY - 11/20/2024 6:37 PM EST Good evening: Received a call from Sana patient was returning Opal Manuel ROSS phone call. I was able to relay themessage. Patient understood, and will be going to the ER. Thank you. DOROTHY Suero * Telephone Encounter - Opal Jackson PA-C - 11/20/2024 6:23 PM EST Called patient. Glucose very high; Called left message on mobile; left message to call back madhav. Called home line; voice mailbox full. Recalled mobile number. No answer. If returns call very high glucose. Recommend going to ER * Telephone Encounter - Opal Jackson PA-C - 11/16/2024 7:32 PM EST Have her try to [id number] famotidine in the morning and 2 in the evening * Telephone Encounter - Trina Dorsey LPN - 11/16/2024 4:13 PM EST Patient is calling. She has been sick for a month Nauseated but not throwing up. If she eats anything gets pain in her stomach And has to go to the bathroom. It is not diarrhea. She is drinking adequately. She tried pepto and it didn't help. Had an appt. On 12/05/23 Cancelled it and placed patient with Opal [place] on Wednesday at 9:40 a.m. in the meanwhile asking what else she can do? * Telephone Encounter - Coni Rosas OSA - 11/16/2024 4:08 PM EST Reason for patient's call: Patient requesting to speak with nurse in reference to symptoms she has had for over a month. Caller was transferred to Trina at the nurse line. documented in this encounter Plan of Treatment Upcoming Encounters Date Type Department Care Team (Late st Contact Info) Description 12/26/2024 3:00 PM EST Office Visit Family Practice [facility] [place] [address] [facility] [place] [address] Opal Jackson PA-C [address] [place] [address] Scheduled Procedures Name Priority Associated Diagnoses Date/Ti me COLONOSCOPY FLEXIBLE PROXIMA L DIAGNOSTIC Recall Encounter for screening colonoscopy Health Maintenance Due Date Last Done Comments Cologuard 2006 Fecal Occult Blood Test 2006 Sigmoidoscopy 2006 Pneumococcal Vaccine: 50+ Years (1 of 1 - PCV) 2011 Zoster Vaccines (1 of 2) 2011 Depression Screening 11/10/2023 11/10/2022, 01/20/2018 (Discussed) COVID-19 Vaccine (1 - season) 2024 Influenza Vaccine (FLU shot) (#1) 2024 01/20/2018 (Unable to do), 10/11/2015 DTap/Tdap Vaccines (2 - Td or Tdap) 11/23/2024 11/23/2014, 1989 Mammogram 11/24/2024 11/24/2023, 04/24, 03/14/2021, Additional history exists Albumin/Creatinine Ratio 07/13/2025 07/13/2022 GFR 11/20/2025 11/20/2024, 0812/2021, 07/27/2021, Additional history exists Colonoscopy 01/13/2026 01/13/2016, 01/13/2016 Colorectal Cancer Screening 01/13/2026 Pap Smear 12/14/2026 12/14/2023, 11/2017, 11/23/2014, Additional history exists Lipid Panel 07/13/2027 07/13/2022, 090 06/2020, 12/02/2014, Additional history exists Diabetes Screening 11/20/2027 11/20/2024, 0 07/13/2022, 07/27/2021, Additional history exists Cervical Cancer Screening 12/14/2028 [...] filedocumented as of this encounter Care Teams Animation Producer Relationship Specialty Start Date End Date ManuelFebruary CODY Edwards [address] [place], [place] [address] PCP - General Physician News Department Intern 05/11/17 documented as of this encounter
--- OUTSIDE RECORDS SUMMARY | 2024-11-21 04:48 | External Medical Summary ---
Author Name Unknown Address Unknown Organization [id number]:[facility] [place] - [address] [place] [address] Laboratory Report Ordering Provider Test Date Status 11/20/2024 10:40:57 Final Observation Date Value Abnormality Reference (Units ) Status Erythrocyte sedimentation rate by Photometric method 11/20/2024 10:40:57 117 Above high normal <30 (mm/hour) Final Performing Location [facility] [place] - [address] [place] [address]
[2024-11-21] MEDS: THIAMINE HCL 100 MG in SYRINGE 9 ML IV STA (05:08)
[2024-11-21] MEDS: PIPERACILLIN/TAZOBACTAM 4.5 GM/100 ML BAG IV SCH (06:15)
[2024-11-21] MEDS ORDERED: INSULIN ASPART PER UNIT CHARGE SC SCH (07:30)
[2024-11-21 07:43] LABS: Estimated Average Glucose 174 mg/dl; Hemoglobin A1C 7.7 % (4.5-5.6)
--- NOTE | 2024-11-21 07:46 | Magnetic Resonance Report ---
EXAM: MR MRCP CLINICAL HISTORY: The patient went to PCP today and was told her blood sugar was high to come to the ER. Recent weight loss of 40 lbs. the patient has no complaints at this time. CT abd/pelvis 11/20. Ultrasound Gallbladder 11/20. room D3A images [id number] TECHNIQUE: Different pulse sequences were performed in different planes for the abdomen without contrast and biliary system. 3D reconstruction and MIP were performed on a workstation. Images were sent through PACs for diagnostic interpretation. COMPARISON: None. The mentioned priors were not attached at the time of Reporting. FINDINGS: The liver is enlarged, measuring 17.7 cm in the largest craniocaudal span. It shows regular contour. It shows homogenous parenchymal signals with no definite parenchymal focal lesions. The pancreatic head and uncinate process show irregular infiltrative soft tissue mass lesionInfiltrating the 2nd part of the duodenumthis exhibits intermediate signals on different pulse sequences. Low signals on DWI and ADCmap. This measures 5x 3.9 x 3.7 cm in the largest craniocaudal, anteroposterior, and [id number] dimensions. Consequent dilatation of the gallbladder showed fluid/fluid level, suggesting debris vs. limy bile.The common bile duct, common hepatic duct, and intrahepatic biliary radicles are dilated. The common bile duct measures 11 mm.the pancreatic duct is dilated, measuring 7.8 mm ( Double duct sign). This mass is inseparable from the superior mesenteric vein and the portal vein [place].the reported findings are highly suggestive of infiltrative high-grade pancreatic neoplasm, e.g., pancreatic adenocarcinoma. The right kidney shows a 3 cm in diameter parenchyma cyst; otherwise, No other renal morphological abnormalities could be depicted. Minimal pericardial effusion is seen. Normal size, shape, and parenchymal signal intensity of both kidneys. No backpressure changes or renal stones were detected. Normal size and outlines of the supra-renal glands with no detectable hyperplasia or masses. No abdominal free fluid collections. No para-aortic lymphadenopathies. Normal course and caliber of the major vessels with preservation of their normal signal void characteristics. IMPRESSION: Hepatomegaly. The pancreatic head and uncinate process show irregular infiltrative soft tissue mass lesion Infiltrating the 2nd part of the duodenum. This measures 5x 3.9 x 3.7 cm in the largest craniocaudal, anteroposterior, and xlwz-em-iocl dimensions. Consequent dilatation of the gallbladder showed fluid/fluid level, suggesting debris vs. limy bile. The common bile duct, common hepatic duct, and intrahepatic biliary radicles are dilated. The common bile duct measures 11 mm.the pancreatic duct is dilated, measuring 7.8 mm ( Double duct sign). This mass is inseparable from the superior mesenteric vein and the portal vein [place].the reported findings are highly suggestive of infiltrative high-grade pancreatic neoplasm, e.g., pancreatic adenocarcinoma. A metastatic workup is recommended. The reported findings explain the current clinical status. Minimal pericardial effusion. Right kidney parenchymal cyst. Electronically signed by Rohini Arias 11-21-2024 07:46 AM
[2024-11-21] MEDS: ENOXAPARIN INJ 40 MG/0.4 ML SYR SQ SCH (08:36)
[2024-11-21] MEDS: FOLIC ACID 1 MG TAB PO SCH (08:36)
[2024-11-21] MEDS: MULTIVITAMIN TAB PO SCH (08:36)
[2024-11-21] MEDS ORDERED: LOSARTAN POTASSIUM 25 MG TAB PO SCH (09:00)
[2024-11-21] MEDS: NSS + 20MEQ KCL 20 MEQ/1,000 ML BAG IV SCH (13:25)
--- NOTE | 2024-11-21 14:46 | Communication Note ---
Date of Service: November 21, 2024 Patient is seen and examined at bedside. Abdominal pain almost resolved. Denies any nausea, vomiting, dizziness, chest pain, dyspnea. On exam patient is obese, no apparent distress, normocephalic atraumatic, EOMI, normal breath sounds, clear to auscultation, no pedal edema, abdomen soft, nontender, mildly distended, alert, awake, oriented, grossly no focal deficits. Blood work and chart reviewed. Sepsis Obstructive jaundice likely due to metastatic disease Possible UTI Metapneumovirus infection Pancreatic mass Hypokalemia Diabetes mellitus: New diagnosis. A1c 7.7 Alcohol use disorder Continue IV Zosyn, pain control as needed Continue IV fluids Monitor for alcohol withdrawal Currently patient is being transferred to [facility] for further management Plan to transfer once bed available.
--- NOTE | 2024-11-21 14:53 | Discharge Summary ---
Date of Service November 21, 2024 Admission HPI Per Admitting Provider History obtained from patient and records. Medical history significant for hypertension, daily alcohol intake, osteoarthritis. Last confinement February 2022 under Orthopedics service for elective right knee surgery. Unremarkable postop stay. Patient unwell for about a month. Poor appetite, postprandial nausea and mild abdominal discomfort symptoms. Light-colored stools. Increased fatigue. Significant weight loss as per patient. Denies headache, chest pain, SOB. Denies depression. Denies cough symptoms or sinus congestion symptoms. Patient seen at PCPs office yesterday. Outpatient x-ray of the abdomen contemplated. Abnormal outpatient labs noted. Glucose 528, anion gap 16, ALT 142, AST 90, alk phos 346, total bilirubin 9.7, Hemoglobin A1c 7.7 Patient directed to ER for evaluation. IV Zosyn administered at the ER. Medical History as above Surgical History : Left breast mass excision, knee surgery, dental surgery Family History : DM, heart disease, RA, breast cancer Personal/Social history : Non-smoker, daily EtOH intake, denies abuse, [employer] employee Admission Exam Per Admitting Provider GENERAL: Comfortable, slightly anxious, obese, no respiratory distress SKIN: Normal color, warm HEENT: [place] palpebral conjunctivae, no ptosis, dry buccal mucosa NECK : Supple, no tenderness CHEST : CTA, no tenderness HEART : RRR, no obvious murmurs ABDOMEN: Some distention, no overt tenderness EXTREMITIES : No LE swelling/tenderness, no other conspicuous deformities noted NEUROLOGIC : Coherent, no facial asymmetry, no other gross focality Principal Diagnosis Sepsis Obstructive jaundice likely due to metastatic disease Possible UTI Metapneumovirus infection Pancreatic mass Hypokalemia Diabetes mellitus: New diagnosis. A1c 7.7 Alcohol use disorder Discharge Data Allergies Allergy/AdvReac Type Severity Reaction Status Date / Time almond Allergy Severe Anaphylaxis Verified 04/03/22 08:32 Penicillins AdvReac Intermediate Yeast Verified 04/03/22 08:32 infection (tongue) fiber glass Allergy Mild Rash Uncoded 04/03/22 08:32 Consultations 11/21/24 00:35 ED Decision to Admit Stat 11/21/24 04:09 Burn CD for patient Stat Procedures Performed Laboratory Results WBC 3.80 K/ul (4.8-10.8) L 11/21/24 03:40 RBC 4.32 M/uL (4.20-5.40) 11/21/24 03:40 Hgb 12.6 g/dl (12.0-16.0) 11/21/24 03:40 Hct 37.7 % (37.0-47.0) 11/21/24 03:40 MCV 87.3 fL (80.0-100.0) 11/21/24 03:40 MCH 29.2 pg (25.0-34.0) 11/21/24 03:40 MCHC 33.4 g/dL (32.0-36.0) 11/21/24 03:40 RDW Std Deviation 49.4 fL (36.4-46.3) H 11/21/24 03:40 RDW Coeff of Shyann 15.5 % (11.5-14.5) H 11/21/24 03:40 Plt Count 155 K/uL (130-400) 11/21/24 03:40 MPV 12.8 fL (9.4-12.4) H 11/21/24 03:40 Immature Gran % (Auto) 0.0 % 11/21/24 03:40 Neut % (Auto) 54.8 % 11/21/24 03:40 Lymph % (Auto) 31.6 % 11/21/24 03:40 [place] % (Auto) 9.7 % 11/21/24 03:40 Eos % (Auto) 3.4 % 11/21/24 03:40 Baso % (Auto) 0.5 % 11/21/24 03:40 Neut # (Auto) 2.08 K/uL (1.40-6.50) 11/21/24 03:40 Lymph # (Auto) 1.20 K/uL (1.20-3.40) 11/21/24 03:40 Norton # (Auto) 0.37 K/uL (0.11-0.59) 11/21/24 03:40 Eos # (Auto) 0.13 K/uL (0.00-0.50) 11/21/24 03:40 Baso # (Auto) 0.02 K/uL (0.00-0.20) 11/21/24 03:40 Immature Gran # (Auto) 0.00 K/uL (0.01-0.20) L 11/21/24 03:40 PT 12.4 Seconds (9.0-12.0) H 11/20/24 20:24 INR 1.2 (0.9-1.1) H 11/20/24 20:24 VBG pH 7.40 (7.36-7.41) 11/21/24 03:40 VBG pCO2 43 mmHg (38-50) 11/21/24 03:40 VBG pO2 36 mmHg 11/21/24 03:40 VBG HCO3 27 mmol/L 11/21/24 03:40 VBG O2 Saturation 60.2 % 11/21/24 03:40 VBG Base Excess 1.5 mEq/L 11/21/24 03:40 Sodium 134 mmol/L (136-145) L 11/21/24 03:40 Potassium 3.7 mmol/L (3.5-5.1) 11/21/24 03:40 Chloride 101 mmol/L (98-107) 11/21/24 03:40 Carbon Dioxide 24 mmol/L (21-32) 11/21/24 03:40 Anion Gap 9 (3-11) 11/21/24 03:40 BUN 8 mg/dl (6-23) 11/21/24 03:40 Creatinine 0.85 mg/dl (0.6-1.2) 11/21/24 03:40 Est Cr Clr Drug Dosing 77.9 ml/min 11/21/24 03:40 eGFR 76.93 11/21/24 03:40 BUN/Creatinine Ratio 9.4 (10-20) L 11/21/24 03:40 Glucose 316 mg/dl (70-99(Fasting)) H* 11/21/24 03:40 POC Glucose 116 mg/dl (70-99) H 11/21/24 12:07 Estimat Average Glucose 174 mg/dl 11/20/24 21:50 Hemoglobin A1c 7.7 % (4.5-5.6) H 11/20/24 21:50 Lactate 1.1 mmol/L (0.4-2.0) 11/21/24 00:23 Calcium 8.9 mg/dl (8.6-10.3) 11/21/24 03:40 Phosphorus 2.9 mg/dl (2.5-4.9) 11/20/24 21:50 Magnesium 1.8 mg/dl (1.7-2.4) 11/21/24 03:40 Total Bilirubin 11.0 mg/dl (0.2-1.0) H 11/21/24 03:40 AST 67 U/L (13-39) H 11/21/24 03:40 ALT 99 U/L (7-52) H 11/21/24 03:40 Alkaline Phosphatase 281 U/L (34-104) H 11/21/24 03:40 Total Protein 7.7 gm/dl (6.0-8.3) 11/21/24 03:40 Albumin 3.5 gm/dl (3.4-5.0) 11/21/24 03:40 Globulin 4.2 gm/dl (2.5-4.0) H 11/21/24 03:40 Albumin/Globulin Ratio 0.8 (0.9-2) L 11/21/24 03:40 Lipase 316 U/L (11-82) H 11/20/24 21:50 TSH 0.968 uIu/ml (0.300-4.500) 11/21/24 03:40 Urine Color Dark Yellow 11/20/24 23:43 Urine Appearance Clear (Clear) 11/20/24 23:43 Urine pH 5.5 (4.5-7.5) 11/20/24 23:43 Ur Specific [place] 1.018 (1.000-1.030) 11/20/24 23:43 Urine Protein Trace (Negative) H 11/20/24 23:43 Urine Glucose (UA) 3+ (Negative) H 11/20/24 23:43 Urine Ketones Negative (Negative) 11/20/24 23:43 Urine Blood Negative (Negative) 11/20/24 23:43 Urine Nitrite Positive (Negative) A 11/20/24 23:43 Urine Bilirubin 2+ (Negative) H 11/20/24 23:43 Urine Urobilinogen Negative (Negative) 11/20/24 23:43 Ur Leukocyte Esterase Negative (Negative) 11/20/24 23:43 Urine WBC (Auto) 0-5 /hpf (0-5) 11/20/24 23:43 Urine RBC (Auto) 0-2 /hpf (0-2) 11/20/24 23:43 U Hyaline Cast (Auto) 3-5 /lpf (0-2) H 11/20/24 23:43 U Epithel Cells (Auto) 0-2 /hpf (0-2) 11/20/24 23:43 Urine Bacteria (Auto) 4+ (None Seen) H 11/20/24 23:43 Ethyl Alcohol mg/dL < 10.0 mg/dl (<10.0) 11/21/24 03:40 Adenovirus (PCR) Not Detected (NotDetected) 11/20/24 20:24 B. pertussis DNA (PCR) Not Detected (NotDetected) 11/20/24 20:24 B.parapertussis DNA PCR Not Detected (NotDetected) 11/20/24 20:24 C. pneumoniae DNA (PCR) Not Detected (NotDetected) 11/20/24 20:24 Coronavirus OC43 (PCR) Not Detected (NotDetected) 11/20/24 20:24 Coronavirus HKU1 (PCR) Not Detected (NotDetected) 11/20/24 20:24 Coronavirus 229E (PCR) Not Detected (NotDetected) 11/20/24 20:24 SARS-CoV-2 (PCR) Not Detected (NotDetected) 11/20/24 20:24 Coronavirus NL63 (PCR) Not Detected (NotDetected) 11/20/24 20:24 Human Metapneumovir PCR DETECTED (NotDetected) A 11/20/24 20:24 Influenza Type A (PCR) Not Detected (NotDetected) 11/20/24 20:24 Influenza Type B (PCR) Not Detected (NotDetected) 11/20/24 20:24 M. pneumoniae (PCR) Not Detected (NotDetected) 11/20/24 20:24 Parainfluenza 1 (PCR) Not Detected (NotDetected) 11/20/24 20:24 Parainfluenza 2 (PCR) Not Detected (NotDetected) 11/20/24 20:24 Parainfluenza 3 (PCR) Not Detected (NotDetected) 11/20/24 20:24 Parainfluenza 4 (PCR) Not Detected (NotDetected) 11/20/24 20:24 RSV (PCR) Not Detected (NotDetected) 11/20/24 20:24 Entero/Rhino (PCR) Not Detected (NotDetected) 11/20/24 20:24 Impressions Abdomen/Pelvis CT 11/20/24 21:06 Exam(s): CT ABDOMEN + PELVIS With Contrast IV Amt: 93 ml optiray 320 EXAM: CT Abdomen and Pelvis With Intravenous Contrast CLINICAL HISTORY: Reason for exam: hyperbilirubinemia; transaminitis. TECHNIQUE: Axial computed tomography images of the abdomen and pelvis with intravenous contrast. CTDI is 35.42 mGy and DLP is 1241.63 mGy-cm. Automated exposure control was utilized for the study. A dose lowering technique was utilized adhering to the principles of ALARA. CONTRAST: Patient received 93 ml optiray 320 of IV contrast COMPARISON: Ultrasound of the same date.. FINDINGS: Lung bases: No consolidation. ABDOMEN: Liver: The liver is enlarged. Gallbladder and bile ducts: Gallbladder is distended. No calcified stones. There is intra-and extrahepatic biliary ductal dilatation. Pancreas: The pancreatic duct is dilated at 9 mm. There is inhomogeneity noted in the pancreatic head.. Spleen: The spleen is enlarged.. Adrenals: No mass. Kidneys and ureters: No hydronephrosis. There is a 3 cm lucency noted in the right kidney. Stomach and bowel: There is a small hiatal hernia. The stomach is relatively decompressed. There is air and stool noted in the colon. There are diverticula present on the colon. No significant inflammatory changes are seen.. PELVIS: Appendix: Unremarkable CT scan appearance noted the appendix.. Bladder: No calculi are noted within the bladder.. Reproductive: Unremarkable as visualized. ABDOMEN and PELVIS: Intraperitoneal space: No free air. No significant fluid collection. Bones/joints: There are degenerative changes in the spine. There is a bilateral spondylolysis with a grade 1 spondylolisthesis of L5 on S1.. Soft tissues: Unremarkable. Vasculature: No abdominal aortic aneurysm. Lymph nodes: . No enlarged lymph nodes. IMPRESSION: The gallbladder is distended. There is intra-and extra hepatic biliary ductal dilatation present. Pancreatic duct is dilated. There is inhomogeneity in the pancreatic head. An underlying mass cannot be excluded. Hepatosplenomegaly. Small hiatal hernia. Diverticulosis. There is a possible right renal cyst. If further evaluation is clinically necessary, consider correlation with MRI/MRCP. Electronically signed by: Luc Garcia MD 11/20/24 23:53 PM Gallbladder Ultrasound 11/20/24 21:23 Exam(s): US GALLBLADDER EXAM: US Abdomen Limited, Right Upper Quadrant CLINICAL HISTORY: Reason for exam: transaminitis; hyperbilirubinemia. TECHNIQUE: Real-time ultrasound of the right upper quadrant with image documentation. COMPARISON: No relevant prior studies available. FINDINGS: Liver: The liver is enlarged and of increased echogenicity.. No intrahepatic bile duct dilation. Gallbladder: The gallbladder is distended containing sludge as well as small calculi. There is a possible 3 mm polyp within the gallbladder. Gallbladder wall measured 3 mm. Negative Renteria sign was reported. Common bile duct: The common bile duct is dilated at 1.8 cm.. Pancreas: The pancreatic duct is dilated at 8 mm.. Right kidney: No stones. No hydronephrosis. IMPRESSION: The gallbladder is distended containing sludge as well as small calculi. There is a possible 3 mm polyp within the gallbladder. The common bile duct is dilated at 1.8 cm. The pancreatic duct is dilated at 8 mm. The liver is enlarged and of increased echogenicity which may be due to fatty infiltration and/or hepatocellular disease. Electronically signed by: Luc Garcia MD 11/20/24 23:53 PM Cholangiopancreatography MRI 11/21/24 00:45 EXAM: MR MRCP CLINICAL HISTORY: The patient went to PCP today and was told her blood sugar was high to come to the ER. Recent weight loss of 40 lbs. the patient has no complaints at this time. CT abd/pelvis 11/20. Ultrasound Gallbladder 11/20. room D3A images 1038 TECHNIQUE: Different pulse sequences were performed in different planes for the abdomen without contrast and biliary system. 3D reconstruction and MIP were performed on a workstation. Images were sent through PACs for diagnostic interpretation. COMPARISON: None. The mentioned priors were not attached at the time of Reporting. FINDINGS: The liver is enlarged, measuring 17.7 cm in the largest craniocaudal span. It shows regular contour. It shows homogenous parenchymal signals with no definite parenchymal focal lesions. The pancreatic head and uncinate process show irregular infiltrative soft tissue mass lesionInfiltrating the 2nd part of the duodenumthis exhibits intermediate signals on different pulse sequences. Low signals on DWI and ADCmap. This measures 5x 3.9 x 3.7 cm in the largest craniocaudal, anteroposterior, and dgaz-li-kqat dimensions. Consequent dilatation of the gallbladder showed fluid/fluid level, suggesting debris vs. limy bile.The common bile duct, common hepatic duct, and intrahepatic biliary radicles are dilated. The common bile duct measures 11 mm.the pancreatic duct is dilated, measuring 7.8 mm ( Double duct sign). This mass is inseparable from the superior mesenteric vein and the portal vein [place].the reported findings are highly suggestive of infiltrative high-grade pancreatic neoplasm, e.g., pancreatic adenocarcinoma. The right kidney shows a 3 cm in diameter parenchyma cyst; otherwise, No other renal morphological abnormalities could be depicted. Minimal pericardial effusion is seen. Normal size, shape, and parenchymal signal intensity of both kidneys. No backpressure changes or renal stones were detected. Normal size and outlines of the supra-renal glands with no detectable hyperplasia or masses. No abdominal free fluid collections. No para-aortic lymphadenopathies. Normal course and caliber of the major vessels with preservation of their normal signal void characteristics. IMPRESSION: Hepatomegaly. The pancreatic head and uncinate process show irregular infiltrative soft tissue mass lesion Infiltrating the 2nd part of the duodenum. This measures 5x 3.9 x 3.7 cm in the largest craniocaudal, anteroposterior, and bcyn-zu-[id number] dimensions. Consequent dilatation of the gallbladder showed fluid/fluid level, suggesting debris vs. limy bile. The common bile duct, common hepatic duct, and intrahepatic biliary radicles are dilated. The common bile duct measures 11 mm.the pancreatic duct is dilated, measuring 7.8 mm ( Double duct sign). This mass is inseparable from the superior mesenteric vein and the portal vein [place].the reported findings are highly suggestive of infiltrative high-grade pancreatic neoplasm, e.g., pancreatic adenocarcinoma. A metastatic workup is recommended. The reported findings explain the current clinical status. Minimal pericardial effusion. Right kidney parenchymal cyst. Electronically signed by Rohini Arias 11-21-2024 07:46 AM Ordered Studies 11/20/24 21:06 CT Abd and Pelvis [CT abd pelvis IV con only] Stat 11/20/24 21:23 US gallbladder Stat 11/21/24 00:45 MR MRCP Stat Hospital Course (1) Sepsis: Sepsis Obstructive jaundice likely due to metastatic disease Possible UTI Metapneumovirus infection Pancreatic mass Hypokalemia Diabetes mellitus: New diagnosis. A1c 7.7 Alcohol use disorder Continue IV Zosyn, pain control as needed Continue IV fluids Continue insulin while hospitalized Monitor blood glucose levels Continue isolation precautions for metapneumovirus infection Follow-up urine cultures and adjust medications as needed Monitor LFTs Monitor for alcohol withdrawal Currently patient is being transferred to [facility] for further management Plan to transfer once bed available. Total Time Total Time Spent Total Time Spent (In Minutes): 55 minutes Discharge Plan Discharge Items Patient Disposition: Transfer Acute Care Hospital Reason For Visit: SEPSIS Discharge Diagnosis: Sepsis Obstructive jaundice likely due to metastatic disease Possible UTI Metapneumovirus infection Pancreatic mass Hypokalemia Diabetes mellitus: New diagnosis. A1c 7.7 Alcohol use disorder Activity: Per Instructions section Exercise/Sports: Wait until after follow-up appointment Non-emergency contact: Primary Care Provider and Surgeon Call non-emergency contact if: you have any medication questions, your symptoms worsen, your pain is concerning for you and you have a fever Follow-up/Referrals: Opal Jackson PA-C [Primary Care Provider] - Dietitian Info: Currently on clear liquid diet Diet: Carb Consistent or DM2 Addtl Attending Provider Instructions: Follow-up with Dr. Muir for further management at [facility] Seek immediate medical attention if your symptoms reoccur or worsen Please take all medications as instructed on discharge list below. Please call if you have any questions or problems. You can reach a [facility] hospitalist on duty at [facility] 24 hours a day by calling [phone] [employer] Provider Instructions: Date of Service: November 21, 2024 Current Inpatient Medications Acetaminophen (Acetaminophen 500 Mg Tab) 500 mg PO Q6H PRN PRN Reason: fever/pain Stop: 12/21/24 03:59 Dextrose (Dextrose 50% 50 Ml Syringe) 25 - 50 ml IV UD PRN; Protocol PRN Reason: Hypoglycemia Protocol Stop: 12/21/24 02:51 Folic Acid (Folic Acid 1 Mg Tab) 1 mg PO QAM [facility] Stop: 12/21/24 08:59 Last Admin: 11/21/24 08:36 Dose: 1 mg Glucagon (Glucagon For Inj 1 Mg Vial) 1 mg SQ UD PRN; Protocol PRN Reason: Hypoglycemia Protocol Stop: 12/21/24 02:51 Glucose (Glucose 40% Gel 15 Gm Tube) 15 - 30 gm PO UD PRN; Protocol PRN Reason: Hypoglycemia Protocol Stop: 12/21/24 02:51 Glucose (Glucose 10 Tab/Tube) 4 - 8 tab PO UD PRN; Protocol PRN Reason: Hypoglycemia Protocol Stop: 12/21/24 02:51 Promethazine HCl (Phenergan) 12.5 mg in 50.5 mls @ 202 mls/hr IV Q6H PRN PRN Reason: Nausea And Vomiting Stop: 12/21/24 01:10 Piperacillin Sod/Tazobactam Sod (Zosyn) 4.5 gm in 100 mls @ 25 mls/hr IV Q8H CHIP; Protocol Stop: 12/01/24 05:59 Last Infusion: 11/21/24 10:21 Dose: Infused Promethazine HCl (Phenergan) 6.25 mg in 50.25 mls @ 201 mls/hr IV Q6H PRN PRN Reason: Nausea And Vomiting Stop: 12/21/24 03:59 Potassium Chloride/Sodium Chloride (Normal Saline W/20 Meq Kcl) 20 meq in 1,000 mls @ 75 mls/hr IV .[id number] [facility] Stop: 11/22/24 15:59 Last Admin: 11/21/24 13:25 Dose: 75 mls/hr Insulin Aspart (Insulin Aspart Per Unit Charge) 0 units SC Q6 [facility] Stop: 12/21/24 05:59 Last Admin: 11/21/24 13:19 Dose: Not Given Insulin Glargine (Lantus Per Unit Charge) 10 units SQ DAILY [facility] Stop: 12/22/24 08:59 Lorazepam (Lorazepam 2 Mg/1 Ml Vial) 1 mg IV ONE PRN; Protocol PRN Reason: EtoH Withdrawal AWSS 6-10 Losartan Potassium (Losartan Potassium 25 Mg Tab) 25 mg PO HS [facility] Stop: 12/21/24 20:59 Miscellaneous (Carbohydrates For Hypoglycemia ) 15 - 30 gm PO UD PRN PRN Reason: Hypoglycemia Protocol Stop: 12/21/24 02:51 Morphine Sulfate (Morphine Sulfate 4 Mg/Ml 1 Ml Carp\Vial) 4 mg IV Q4H PRN PRN Reason: Pain Stop: 12/05/24 03:59 Multivitamins (Multivitamin Tab) 1 tab PO QAM [facility] Stop: 12/21/24 08:59 Last Admin: 11/21/24 08:36 Dose: 1 tab Oxycodone HCl (Oxycodone Hcl Ir 5 Mg Tab (Immediate Release)) 5 mg PO Q4H PRN PRN Reason: Pain Stop: 12/05/24 03:59 Thiamine HCl (Thiamine Hcl 100 Mg Tab) 100 mg PO QAM [facility] Stop: 12/22/24 08:59 Pending Studies at Discharge: Yes Studies:: Blood, urine culture Stand-Alone Forms: [facility] Skilled Items Patient informed of condition?: Yes DNR: No Discharge Level of Care: Other Communicable Disease: Yes Discharge Prognosis: Other Lines: Peripheral IV Urinary Catheter: No Medications and DC Order Prescriptions: Continued hydrochlorothiazide 25 mg Tablet 25 mg PO QAM multivitamin Tablet 1 tab PO QAM Discharge Orders: Discharge Order (Routine); Ordered 11/21/24 Ordered By: Talon Hanson Admission Data Admit Date/Time: 11/21/24 03:57 Attending Provider: Talon Hanson Admit Provider: Ramez Noguera Primary Care Provider: Opal Jackson Other Providers: Ramez Noguera
[2024-11-21] MEDS: LOSARTAN POTASSIUM 25 MG TAB PO SCH (21:54)
[2024-11-22 03:59] LABS: Basophils # (auto) 0.03 K/uL (0.00-0.20); Basophils % (auto) 0.8 %; Eosinophils # (auto) 0.21 K/uL (0.00-0.50); Eosinophils % (auto) 5.7 %; Hematocrit (blood only) 32.7 % (37.0-47.0); Hemoglobin 10.9 g/dl (12.0-16.0); Immature Granulocytes # (auto) 0.01 K/uL (0.01-0.20); Immature Granulocytes % (auto) 0.3 %; Lymphocytes # (auto) 1.12 K/uL (1.20-3.40); Lymphocytes % (auto) 30.2 %; Mean Corpuscular Hemoglobin 29.3 pg (25.0-34.0); Mean Corpuscular Hgb Conc 33.3 g/dL (32.0-36.0); Mean Corpuscular Volume 87.9 fL (80.0-100.0); Mean Platelet Volume 12.7 fL (9.4-12.4); Monocytes # (auto) 0.44 K/uL (0.11-0.59); Monocytes % (auto) 11.9 %; Neutrophils % (auto) 51.1 %; Platelet Count 157 K/uL (130-400); RDW Coefficient of Variation 15.8 % (11.5-14.5); RDW Standard Deviation 51.1 fL (36.4-46.3); Red Blood Count 3.72 M/uL (4.20-5.40); White Blood Count 3.71 K/ul (4.8-10.8)
[2024-11-22 04:22] LABS: Albumin Globulin Ratio 0.8 (0.9-2); Albumin Level 2.8 gm/dl (3.4-5.0); BUN Creatinine Ratio 5.4 (10-20); Bilirubin,Total 8.8 mg/dl (0.2-1.0); Calcium 8.5 mg/dl (8.6-10.3); Creatinine Clr Calc Pharmacy 71.2 ml/min; Globulin 3.4 gm/dl (2.5-4.0); Magnesium 1.5 mg/dl (1.7-2.4); Potassium 3.7 mmol/L (3.5-5.1); Total Protein 6.2 gm/dl (6.0-8.3)
[2024-11-22] MEDS: MAGNESIUM SULFATE / D5W 1 GM/100 ML BAG IV SCH (08:11)
[2024-11-22] MEDS: THIAMINE HCL 100 MG TAB PO SCH (09:43)
[2024-11-22] MEDS: LANTUS PER UNIT CHARGE SQ SCH (10:09)
--- NOTE | 2024-11-22 11:52 | Hospitalist Progress Note ---
Date of Service November 22, 2024 Assessment & Plan (1) Sepsis: Plan: Ms Cisse is a 64 year old woman with history of hypertension, daily alcohol intake, osteoarthritis who is admitted for weakness and weight loss. Labs revealed transaminitis consistent with obstructive process. MRCP with lesions consistent with highly infiltrative high grade pancreatic neoplasm. #Obstructive jaundice likely due to metastatic disease #Pancreatic mass Imaging revealed: highly suggestive of infiltrative high-grade pancreatic neoplasm, Spoke to transfer center, bed assigned LFTS downtrending Trial full liquid diet continue zosyn at this time The reported findings explain the current clinical status. Minimal pericardial effusion. Right kidney parenchymal cyst. #Metapneumovirus infection symptomatic management #UTI ecoli on culture abx as above Currently patient is being transferred to [facility] for further management Pending transfer, likely today Refer to DC summary 11/21 Admission and Anticipated Discharge Date Admission Date: November 21, 2024 Subjective NAEO Reports feeling hungry and without Physical Exam Constitutional: WD/WN, vitals as above Eyes: scleral icterus Respiratory: normal respiratory effort, lungs clear to auscultation Cardiovascular: RRR, no murmur, no edema Gastrointestinal (Abdomen): normal bowel sounds, soft, nontender, no hepatosplenomegaly Results & Data Results & Data Vital Signs (Past 12 Hours) Vital Signs Pulse Pulse Resp BP BP Pulse Ox Pulse Ox 11/22/24 09:00 85 16 118/62 99 11/22/24 06:37 96 11/22/24 03:54 96 H 18 126/73 99 O2 Del Method O2 Del Method 11/22/24 09:00 11/22/24 06:37 Room Air 11/22/24 03:54 Room Air Laboratory Results Short CBC 11/22/24 Range/Units 03:42 WBC 3.71 L (4.8-10.8) K/ul Hgb 10.9 L (12.0-16.0) g/dl Hct 32.7 L (37.0-47.0) % Plt Count 157 (130-400) K/uL BMP 11/22/24 03:42 Sodium 141 Potassium 3.7 Chloride 109 H Carbon Dioxide 25 BUN 5 L Creatinine 0.93 Glucose 144 H Calcium 8.5 L Liver Function 11/22/24 Range/Units 03:42 Total Bilirubin 8.8 H (0.2-1.0) mg/dl AST 55 H (13-39) U/L ALT 67 H (7-52) U/L Alkaline Phosphatase 221 H (34-104) U/L Albumin 2.8 L (3.4-5.0) gm/dl Medications Administered Home Medications Medication Instructions Recorded Confirmed Last Taken hydrochlorothiazide 25 mg tablet 25 mg PO QAM 10/16/20 11/21/24 02/16/22 10:00 multivitamin 1 tab PO QAM 10/16/20 11/21/24 02/16/22 10:00 Active Medications Generic Name Dose Route Start Last Admin Trade Name Freq PRN Reason Stop Dose Admin Folic Acid 1 mg 11/21/24 09:00 11/22/24 09:43 Folic Acid 1 Mg Tab PO 12/21/24 08:59 1 mg QAM CHIP Administration Piperacillin Sod/Tazobactam Sod 4.5 gm in 100 mls @ 25 mls/hr 11/21/24 06:00 11/22/24 09:57 Zosyn IV 12/01/24 05:59 Infused Q8H CHIP Infusion Protocol Potassium Chloride/Sodium Chloride 20 meq in 1,000 mls @ 75 mls/hr 11/21/24 13:20 11/22/24 03:24 Normal Saline W/20 Meq Kcl IV 11/22/24 15:59 75 mls/hr .[id number] CHIP Administration Insulin Aspart 0 units 11/21/24 06:00 11/22/24 06:33 Insulin Aspart Per Unit Charge SC 12/21/24 05:59 2 units Q6 CHIP Administration Insulin Glargine 10 units 11/22/24 09:00 11/22/24 10:09 Lantus Per Unit Charge SQ 12/22/24 08:59 10 units DAILY CHIP Administration Losartan Potassium 25 mg 11/21/24 21:00 11/21/24 21:54 Losartan Potassium 25 Mg Tab PO 12/21/24 20:59 25 mg HS CHIP Administration Multivitamins 1 tab 11/21/24 09:00 11/22/24 09:43 Multivitamin Tab PO 12/21/24 08:59 1 tab QAM CHIP Administration Thiamine HCl 100 mg 11/22/24 09:00 11/22/24 09:43 Thiamine Hcl 100 Mg Tab PO 12/22/24 08:59 100 mg QAM CHIP Administration
[2024-11-22 13:28] VITALS: RESP 20
[2024-11-22 17:11] VITALS: BP 116/76; PULSE 93; TEMP 98.6; O2SAT 98
[2024-11-22] MEDS: INSULIN ASPART PER UNIT CHARGE SC SCH (17:42)
== END 2024-11-22 21:19 | disposition short-term general hospital (02) | DRG 871 ==
LOC: ED 19:41 → SUATTDRO 11-21 03:57 → EDINP 11-21 03:57 → 2W 11-21 05:31

== ENCOUNTER 2025-10-11 07:20 | Observation (INO) ==
--- NOTE | 2025-10-11 07:35 | Emergency Department Note ---
Impression & Plan Hypoglycemia, Weakness, Anemia, Hypokalemia ED Provider Note NAME: BRYSON ROMERO AGE: 65 SEX: F : 1960 ARRIVES VIA: Ambulance INFORMANT: Patient ED PROVIDER(S): Nigel Silverio DO CHIEF COMPLAINT: Low blood sugar HPI: Patient is a 65-year-old female with a past medical history of diabetes, sepsis, pancreatic carcinoma and transaminitis who presents to the ER for confusion. Patient was at work and notes that she felt off balance confused and very weak. EMS arrived and her blood sugar was in the 30s. They gave her oral sugars and blood sugars trended down to 19. They given IV and gave her a bolus of 250 mL of D10. Sugars finally came up into the 50s per EMS who provided additional history. Was transported her here. They note her mentation and speech improved significantly. She denies any headache or change in vision. No chest pain or shortness of breath. No nausea, vomiting or diarrhea. No dysuria, urgency or frequency. No other exacerbating or remitting factors. She notes that she just feels a little cold currently. She provides additional history and notes that she takes 15 units of Lantus generally around 7 PM and she did that last night. She did eat breakfast this morning which included a piece of cake. ADDITIONAL HISTORY OBTAINED: Per EMS as described above Chronic Medical/Social Conditions Affecting Care: Per HPI PAST MEDICAL HISTORY:See Below PAST SURGICAL HISTORY:See Below FAMILY HISTORY:See Below SOCIAL HISTORY:See Below HOME MEDICATIONS:See Below ALLERGIES:See Below VITALS:See Below PHYSICAL EXAMINATION: GENERAL: Sitting up in bed, alert, well appearing, well nourished, no distress, non-toxic EYE EXAM: normal conjunctiva. PERRL and EOM's intact. OROPHARYNX: no exudate, no erythema, lips, buccal mucosa, and tongue normal and mucous membranes are moist NECK: supple, no nuchal rigidity, no adenopathy, non-tender LUNGS: Clear to auscultation. Normal chest wall mechanics HEART: no murmurs, S1 normal and S2 normal ABDOMEN: abdomen soft, non-tender, normo-active bowel sounds, no masses, no rebound or guarding. UPPER EXTREMITIES: upper extremities are grossly normal. LOWER EXTREMITIES: No pitting edema. NEURO EXAM: Normal sensorium, cranial nerves II-XII intact, normal speech, no weakness of arms, no weakness of legs. No drift. Finger to nose intact. Gross sensation intact. MEDICAL DECISION MAKING: Patient is a 65-year-old female who presents to the ER for confusion and was found to have a low blood sugar per EMS. IV was established and blood work is obtained. Labs show a mild leukopenia at 3.2. Hemoglobin at 9.3 consistent with previous. BMP with mild hypokalemia 3.2. Blood sugar upon arrival was 80. Patient was given peanut butter, crackers, and several other things which she ate including a soda. Blood sugar after half hour trended back down to 38. Patient was given a amp of D50 and will be placed on D10 and will be brought in due to utilizing Lantus at home. She is still at baseline. Consults/Care Managements Discussions: Per MDM Triage Nursing notes reviewed. Limited review of prior medical records performed Vital Signs: reviewed and remarkable for no significant abnormalities Differential diagnosis: Infection, dehydration, metabolic abnormality, hypo/hyperglycemia, electrolyte disturbance, anemia, hypoxia, cardiac sources, intracerebral event, toxicologic, neurologic, as well as other pathologies. ER treatment provided: See below Diagnostics interpreted by me include EKG and cardiac monitoring as listed below: -Cardiac Monitoring: An order was placed for continuous cardiac monitoring. The monitor shows a rate of 80 with sinus rhythm. -ECG: none -Laboratory studies:Interpreted by me as stated above in MDM and shown below. Imaging studies: Xrays: As interpreted by me:none CTs show: none Procedures:none Critical Care: I have personally spent 33 minutes of critical care time in the direct management of this patient. This includes bedside care, interpretation of diagnostic studies, and testing, discussion with consultants, patient, and family members, and other required patient management activities. This 33 minutes is in excess of all separately billable procedures. 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 River S/P exploratory laparotomy 08/10/25 Dr. River History of total knee replacement Left knee replacement (01/14/21): SAB at L3-L4, 1 attempt + PNB. No issues per anesthesia post-op progress note; Right knee replacement 2021; History of tooth extraction Hx of lumpectomy Left (benign) History of colonoscopy History of mandibular surgery Lefort I (1988) > no jaw ROM limitations H/O removal of cyst Breast Family History (Updated 09/26/25 @ 13:25 by Carmenza Neves RN) Sister Breast cancer, Onset Age: 47 Mother Cerebral aneurysm, Onset Age: 80 Father Myocardial infarction, Onset Age: 61 Social History (Updated 09/26/25 @ 13:26 by Carmenza Neves RN) Smoking Status: Never smoker Second Hand Exposure: No; Do You Dip or Chew Tobacco: No; Hx Alcohol Use: Yes Alcohol type: beer Hx Substance Use: No Preferred Language: Latvian Communication Ability: Effective 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 Beliefs That Will Affect Care: None marital status: Single Current Living Situation: Alone current occupational status: employed current occupation: [employer]; How many Children do You have: 0 Feels Safe at Home: Yes Childhood Exposure to Second-Hand Smoke: Yes (childhood; ) Assistive Devices: Cane and Walker Allergies Allergies Allergy/AdvReac Type Severity Reaction Status Date / Time almond Allergy Severe Anaphylaxis Verified 04/03/22 08:32 Penicillins AdvReac Intermediate Yeast Verified 04/03/22 08:32 infection (tongue) fiber glass Allergy Mild Rash Uncoded 04/03/22 08:32 Home Meds Home Medications Medication Instructions Recorded Confirmed amlodipine 5 mg tablet 5 mg PO DAILY 05/22/25 10/11/25 insulin glargine-yfgn 100 unit/mL 15 unit subcut HS 05/22/25 10/11/25 (3 mL) subcutaneous pen docusate sodium 100 mg capsule 100 mg PO BID PRN Constipation 09/26/25 10/11/25 metformin 500 mg tablet 500 mg PO BID 09/26/25 10/11/25 capecitabine 150 mg tablet 150 mg PO UD 10/11/25 10/11/25 capecitabine 500 mg tablet 500 mg PO UD 10/11/25 10/11/25 omeprazole 20 mg capsule,delayed 20 mg PO DAILY 10/11/25 10/11/25 release ondansetron HCl 4 mg tablet 4 mg PO Q6H PRN Nausea 10/11/25 10/11/25 potassium chloride 10 mEq 10 meq PO UD 10/11/25 10/11/25 tablet,extended release Results & Data (ED) Vital Signs Vital Signs - 24 hr 10/11/25 07:19 10/11/25 08:10 10/11/25 09:22 Temperature 36.6 C Temperature Source Oral Pulse Rate 81 78 Pulse Rate [Apical] 80 Respiratory Rate 18 18 Respiratory Effort / Characteristics Non-Labored Spontaneous Non-Labored Spontaneous Respiratory Depth Normal Normal Respiratory Pattern Regular Regular Blood Pressure 146/79 H Blood Pressure [Right Arm] 146/83 H Blood Pressure Mean 101 Blood Pressure Mean [Right Arm] 104 Pulse Oximetry 95 99 Oxygen Delivery Method Room Air Room Air Sepsis Recent Fever Within 48 Hours No Sepsis New/Unexplained Change in Mental Status Yes Sepsis Action Taken by Nursing No Action Required Laboratory Data 10/11/25 07:35 10/11/25 07:35 Lab Results 10/11/25 10/11/25 10/11/25 Range/Units 07:24 07:35 08:02 WBC 3.28 L (4.8-10.8) K/ul RBC 3.04 L (4.20-5.40) M/uL Hgb 9.3 L (12.0-16.0) g/dL Hct 29.3 L (37.0-47.0) % MCV 96.4 (80.0-100.0) fL MCH 30.6 (25.0-34.0) pg MCHC 31.7 L (32.0-36.0) g/dL RDW Std Deviation 50.5 H (36.4-46.3) fL RDW Coeff of Shyann 14.4 (11.5-14.5) % Plt Count 188 (130-400) K/uL MPV 10.8 (9.4-12.4) fL Immature Gran % (Auto) 0.0 % Neut % (Auto) 72.3 % Lymph % (Auto) 19.8 % Perkins % (Auto) 7.6 % Eos % (Auto) 0.0 % Baso % (Auto) 0.3 % Neut # (Auto) 2.37 (1.40-6.50) K/uL Lymph # (Auto) 0.65 L (1.20-3.40) K/uL Perkins # (Auto) 0.25 (0.11-0.59) K/uL Eos # (Auto) 0.00 (0.00-0.50) K/uL Baso # (Auto) 0.01 (0.00-0.20) K/uL Immature Gran # (Auto) 0.00 L (0.01-0.20) K/uL Sodium 141 (136-145) mmol/L Potassium 3.1 L (3.5-5.1) mmol/L Chloride 106 (98-107) mmol/L Carbon Dioxide 29 (21-32) mmol/L Anion Gap 6 (3-11) BUN 5 L (6-23) mg/dl Creatinine 0.62 (0.6-1.2) mg/dl Est Cr Clr Drug Dosing 82.5 ml/min eGFR 99.38 BUN/Creatinine Ratio 8.1 L (10-20) Glucose 72 (70-99(Fasting)) mg/dl POC Glucose 80 38 L* (70-99) mg/dl Estimat Average Glucose 97 mg/dl Hemoglobin A1c 5.0 (4.5-5.6) % Calcium 8.8 (8.6-10.3) mg/dl Total Bilirubin 0.4 (0.2-1.0) mg/dl AST 14 (13-39) U/L ALT 8 (7-52) U/L Alkaline Phosphatase 102 (34-104) U/L Total Protein 7.5 (6.0-8.3) gm/dl Albumin 3.5 (3.4-5.0) gm/dl Globulin 4.0 (2.5-4.0) gm/dl Albumin/Globulin Ratio 0.9 (0.9-2) Lipase 4 L (11-82) U/L 10/11/25 Range/Units 08:41 WBC (4.8-10.8) K/ul RBC (4.20-5.40) M/uL Hgb (12.0-16.0) g/dL Hct (37.0-47.0) % MCV (80.0-100.0) fL MCH (25.0-34.0) pg MCHC (32.0-36.0) g/dL RDW Std Deviation (36.4-46.3) fL RDW Coeff of Shyann (11.5-14.5) % Plt Count (130-400) K/uL MPV (9.4-12.4) fL Immature Gran % (Auto) % Neut % (Auto) % Lymph % (Auto) % Perkins % (Auto) % Eos % (Auto) % Baso % (Auto) % Neut # (Auto) (1.40-6.50) K/uL Lymph # (Auto) (1.20-3.40) K/uL Perkins # (Auto) (0.11-0.59) K/uL Eos # (Auto) (0.00-0.50) K/uL Baso # (Auto) (0.00-0.20) K/uL Immature Gran # (Auto) (0.01-0.20) K/uL Sodium (136-145) mmol/L Potassium (3.5-5.1) mmol/L Chloride (98-107) mmol/L Carbon Dioxide (21-32) mmol/L Anion Gap (3-11) BUN (6-23) mg/dl Creatinine (0.6-1.2) mg/dl Est Cr Clr Drug Dosing ml/min eGFR BUN/Creatinine Ratio (10-20) Glucose (70-99(Fasting)) mg/dl POC Glucose 171 H (70-99) mg/dl Estimat Average Glucose mg/dl Hemoglobin A1c (4.5-5.6) % Calcium (8.6-10.3) mg/dl Total Bilirubin (0.2-1.0) mg/dl AST (13-39) U/L ALT (7-52) U/L Alkaline Phosphatase (34-104) U/L Total Protein (6.0-8.3) gm/dl Albumin (3.4-5.0) gm/dl Globulin (2.5-4.0) gm/dl Albumin/Globulin Ratio (0.9-2) Lipase (11-82) U/L Administered Medications Dextrose (D10w) 1,000 mls @ 80 mls/hr IV .[id number] CHIP Stop: 10/14/25 08:14 Last Admin: 10/11/25 08:16 Dose: 125 mls/hr Documented By: Discontinued Medications Dextrose (Dextrose 50% 50 Ml Syringe) Confirm Administered Dose 50 ml IV .STK- MED ONE Stop: 10/11/25 08:05 Last Admin: 10/11/25 08:16 Dose: Not Given Documented By: Dextrose (Dextrose 50% 50 Ml Syringe) 50 ml IV NOW ONE Stop: 10/11/25 08:06 Last Admin: 10/11/25 08:07 Dose: 50 ml Documented By: Potassium Chloride (Potassium Chloride Crtab 20 Meq Tabcr) 40 meq PO NOW ONE Stop: 10/11/25 09:18 Last Admin: 10/11/25 09:44 Dose: 40 meq Documented By: CAP Discharge Plan Visit Data Chief Complaint: Hypoglycemia Stated Complaint: HYPOGLYCEMIA ED Provider: Nigel Silverio Discharge Problem: Hypoglycemia, Weakness, Anemia, Hypokalemia Condition: Serious Forms Stand Alone Forms: [employer] Prescriptions Prescriptions: No Action docusate sodium 100 mg capsule 100 mg PO BID PRN (Reason: Constipation) Patient Comments: 10/11- otc unable to verify amlodipine 5 mg tablet 5 mg PO DAILY insulin glargine-yfgn 100 unit/mL (3 mL) insulin pen 15 unit subcut HS metformin 500 mg tablet 500 mg PO BID ondansetron HCl 4 mg tablet 4 mg PO Q6H PRN (Reason: Nausea) potassium chloride 10 mEq tablet extended release 10 meq PO UD Rx Instructions: 20 mEq po qam; 10 mEq po pm capecitabine 500 mg tablet 500 mg PO UD capecitabine 150 mg tablet 150 mg PO UD omeprazole 20 mg capsule,delayed release(DR/EC) 20 mg PO DAILY Referrals Referrals: Opal Jackson PA-C [Primary Care Provider] - Discharge Problem: Anemia Qualifiers: Anemia type: unspecified type Qualified Code(s): D64.9 - Anemia, unspecified
[2025-10-11 07:53] LABS: Hematocrit (blood only) 29.3 % (37.0-47.0); Hemoglobin 9.3 g/dL (12.0-16.0); Immature Granulocytes # (auto) 0.00 K/uL (0.01-0.20); Immature Granulocytes % (auto) 0.0 %; Mean Corpuscular Hemoglobin 30.6 pg (25.0-34.0); Mean Corpuscular Volume 96.4 fL (80.0-100.0); Platelet Count 188 K/uL (130-400); RDW Standard Deviation 50.5 fL (36.4-46.3); Red Blood Count 3.04 M/uL (4.20-5.40); White Blood Count 3.28 K/ul (4.8-10.8)
[2025-10-11] MEDS: DEXTROSE 50% 50 ML SYRINGE IV ONE ×2 (08:07→08:16)
[2025-10-11 08:11] LABS: Alanine Aminotransferase 8.0 U/L (7-52); Albumin Globulin Ratio 0.9 (0.9-2); Albumin Level 3.5 gm/dl (3.4-5.0); Alkaline Phosphatase 102.0 U/L (34-104); Anion Gap 6.0 (3-11); Bilirubin,Total 0.4 mg/dl (0.2-1.0); Blood Urea Nitrogen 5.0 mg/dl (6-23); Calcium 8.8 mg/dl (8.6-10.3); Carbon Dioxide 29.0 mmol/L (21-32); Chloride 106.0 mmol/L (98-107); Creatinine Clr Calc Pharmacy 82.5 ml/min; Globulin 4.0 gm/dl (2.5-4.0); Glucose 72.0 mg/dl (70-99(Fasting)); Lipase 4.0 U/L (11-82); Potassium 3.1 mmol/L (3.5-5.1); Sodium 141.0 mmol/L (136-145); Total Protein 7.5 gm/dl (6.0-8.3)
[2025-10-11] MEDS: DEXTROSE 10% 1,000 ML IV SCH (08:16)
--- NOTE | 2025-10-11 08:42 | History & Physical Report ---
Date of Service October 11, 2025 Assessment & Plan (1) Acute hypokalemia: (2) Pancreatic carcinoma: Plan Assessment/plan Hypoglycemia History of pancreatic cancer on chemotherapy Hypokalemia Patient presented with hypoglycemic symptoms Blood glucose of 30s on admission; Potassium of 3.1 Takes glargine 15 units at night and metformin 500 mg twice daily Decrease rate of D10 at 100 cc/h; obtain BMP in the evening POC glucose every 4 hours for now; will space it out to 6 to 8 hours after improvement in blood glucose Consult consignee Update HbA1c Replete potassium Hypertensioncontinue on amlodipine History of pancreatic cancer on chemotherapyfollows up with oncology as outpatient. radiation oncology contacted Esophagitiscontinue on omeprazole DVT prophylaxis heparin Time spent evaluating patient, direct bedside care, chart review, placing orders, interpretation of diagnostic studies, discussion with consultants, patient, and family members, as well as other required patient management activities is 75 minutes Please note the above document was generated using voice recognition software. It may contain grammatical, syntax or spelling errors. Any formal questions or concerns about the content, text or information contained within the body of this dictation should be directly addressed to the provider for clarification History of Present Illness Chief Complaint: Hypoglycemia Primary Care Provider: Opal Jackson PA-C History obtained from chart review and interview with the patient. 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 She is currently on chemotherapy. Her last HbA1c was 7.3% in February 2025. She is currently on insulin glargine 15 units at bedtime, metformin 500 mg twice a day. Patient presented to the hospital after she was found to be hypoglycemic with her blood glucose in 30s; was given D50 and D10 and transported to the ED. Her mentation and speech improved after hypoglycemia improvement. She is alert oriented x 3 at this time, she denies visual changes, weakness/numbness of any body part, chest pain, shortness of breath, abdominal pain. Allergies Allergy/AdvReac Type Severity Reaction Status Date / Time almond Allergy Severe Anaphylaxis Verified 04/03/22 08:32 Penicillins AdvReac Intermediate Yeast Verified 04/03/22 08:32 infection (tongue) fiber glass Allergy Mild Rash Uncoded 04/03/22 08:32 Home Medications Medication Instructions Recorded Confirmed Type amlodipine 5 mg tablet 5 mg PO DAILY 05/22/25 10/11/25 History insulin glargine-yfgn 100 unit/mL 15 unit subcut HS 05/22/25 10/11/25 History (3 mL) subcutaneous pen docusate sodium 100 mg capsule 100 mg PO BID PRN Constipation 09/26/25 10/11/25 History metformin 500 mg tablet 500 mg PO BID 09/26/25 10/11/25 History capecitabine 150 mg tablet 150 mg PO UD 10/11/25 10/11/25 History capecitabine 500 mg tablet 500 mg PO UD 10/11/25 10/11/25 History omeprazole 20 mg capsule,delayed 20 mg PO DAILY 10/11/25 10/11/25 History release ondansetron HCl 4 mg tablet 4 mg PO Q6H PRN Nausea 10/11/25 10/11/25 History potassium chloride 10 mEq 10 meq PO UD 10/11/25 10/11/25 History tablet,extended release Past Med/Surg History Problem List (Updated 10/11/25 @ 10:04 by Nigel Silverio DO) Hypokalemia (Acute) Anemia (Acute) Weakness (Acute) Hypoglycemia (Acute) Pancreatic carcinoma (Chronic) Sepsis Infection due to human metapneumovirus (hMPV) (Acute) Hypomagnesemia (Acute) Acute hypokalemia (Acute) Hyperbilirubinemia (Acute) Transaminitis (Acute) Diabetes (Acute) 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 River S/P exploratory laparotomy 08/10/25 Dr. River History of total knee replacement Left knee replacement (01/14/21): SAB at L3-L4, 1 attempt + PNB. No issues per anesthesia post-op progress note; Right knee replacement 2021; History of tooth extraction Hx of lumpectomy Left (benign) History of colonoscopy History of mandibular surgery Lefort I (1988) > no jaw ROM limitations H/O removal of cyst Breast Family History (Updated 09/26/25 @ 13:25 by Carmenza Neves RN) Sister Breast cancer, Onset Age: 47 Mother Cerebral aneurysm, Onset Age: 80 Father Myocardial infarction, Onset Age: 61 Social History (Updated 09/26/25 @ 13:26 by Carmenza Neves RN) Smoking Status: Never smoker Second Hand Exposure: No; Do You Dip or Chew Tobacco: No; Hx Alcohol Use: Yes Alcohol type: beer Hx Substance Use: No Preferred Language: Korean Communication Ability: Effective 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 Beliefs That Will Affect Care: None marital status: Single Current Living Situation: Alone current occupational status: employed current occupation: [employer]; How many Children do You have: 0 Feels Safe at Home: Yes Childhood Exposure to Second-Hand Smoke: Yes (childhood; ) Assistive Devices: Cane and Walker Review of Systems Review of Systems: All systems reviewed & are unremarkable except as noted in Subjective Physical Exam Physical Exam: On physical examination; Constitutional: WD/WN, vitals as above, NAD, sitting up in bed, pleasant, conversing easily Respiratory: normal respiratory effort, lungs clear to auscultation, no wheeze, rales, rhonchi. Normal insp/exp effort, no accessory muscle use Cardiovascular: RRR, no murmur, no edema Vessels: no JVD or carotid bruit Chest: normal inspection of chest Abdomen: normal bowel sounds, soft, nontender, no hepatosplenomegaly Musculoskeletal: no cyanosis or clubbing, extremities motor strength 5/5 Skin: no rashes, warm and dry normal turgor Neurologic: PERRL, EOMI, accommodation nl, no face palsy, no dysarthria CN's II- XI intact bilaterally and moves all extremities Psychiatric: A+Ox3, euthymic affect Results & Data Results & Data Vital Signs (Past 12 Hours) Vital Signs Temp Pulse Resp BP Pulse Ox O2 Del Method 10/11/25 08:10 78 10/11/25 07:19 36.6 C 81 18 146/79 H 95 Room Air
[2025-10-11] MEDS ORDERED: DOCUSATE SODIUM 100 MG CAP PO PRN (09:10)
[2025-10-11] MEDS: POTASSIUM CHLORIDE CRTAB 20 MEQ TABCR PO ONE (09:44)
[2025-10-11 09:59] LABS: Hemoglobin A1C 5.0 % (4.5-5.6)
[2025-10-11] MEDS ORDERED: ALUMINUM/MAGNESIUM SUSP 30 ML UDC PO PRN (11:55)
[2025-10-11] MEDS ORDERED: MAGNESIUM HYDROXIDE SUSP 30 ML UDC PO PRN (11:55)
[2025-10-11] MEDS ORDERED: ONDANSETRON INJ 2 MG/ML 2 ML VIAL IV PRN (11:55)
[2025-10-11] MEDS ORDERED: NON-FORMULARY MEDICATION (Capecitabine 500 mg tablet) PO SCH (11:55)
[2025-10-11] MEDS ORDERED: ACETAMINOPHEN 325 MG TAB PO PRN (11:55)
[2025-10-11] MEDS ORDERED: DEXTROSE 50% 50 ML SYRINGE IV PRN (12:18)
[2025-10-11] MEDS ORDERED: GLUCOSE 40% GEL 15 GM TUBE PO PRN (12:18)
[2025-10-11] MEDS ORDERED: GLUCOSE 10 TAB/TUBE PO PRN (12:18)
[2025-10-11] MEDS ORDERED: GLUCAGON FOR INJ 1 MG VIAL SQ PRN (12:18)
[2025-10-11] MEDS: CARBOHYDRATES FOR HYPOGLYCEMIA PO PRN (13:25)
[2025-10-11 15:13] LABS: Anion Gap 6.0 (3-11); Blood Urea Nitrogen 5.0 mg/dl (6-23); Calcium 8.8 mg/dl (8.6-10.3); Carbon Dioxide 30.0 mmol/L (21-32); Chloride 106.0 mmol/L (98-107); Creatinine Clr Calc Pharmacy 98.3 ml/min; Glucose 47.0 mg/dl (70-99(Fasting)); Potassium 2.9 mmol/L (3.5-5.1); Sodium 142.0 mmol/L (136-145)
[2025-10-11 16:50] VITALS: RESP 16
[2025-10-11] MEDS: POTASSIUM CHLORIDE CRTAB 20 MEQ TABCR PO SCH (20:13)
[2025-10-11 21:56] LABS: Anion Gap 5.0 (3-11); Blood Urea Nitrogen 4.0 mg/dl (6-23); Calcium 8.0 mg/dl (8.6-10.3); Carbon Dioxide 28.0 mmol/L (21-32); Chloride 107.0 mmol/L (98-107); Creatinine Clr Calc Pharmacy 98.3 ml/min; Glucose 146.0 mg/dl (70-99(Fasting)); Potassium 3.1 mmol/L (3.5-5.1); Sodium 140.0 mmol/L (136-145)
[2025-10-11 23:29] LABS: Appearance Urine Turbid (Clear); Bacteria Urine Automated 4+ (None Seen); Cast Urine Automated 0-2 /lpf (0-2); Glucose Urine UA Negative (Negative)
[2025-10-12 06:59] LABS: Anion Gap 5.0 (3-11); Blood Urea Nitrogen 3.0 mg/dl (6-23); Calcium 8.6 mg/dl (8.6-10.3); Carbon Dioxide 27.0 mmol/L (21-32); Chloride 108.0 mmol/L (98-107); Creatinine Clr Calc Pharmacy 100.3 ml/min; Glucose 142.0 mg/dl (70-99(Fasting)); Potassium 3.5 mmol/L (3.5-5.1); Sodium 140.0 mmol/L (136-145)
[2025-10-12 08:04] VITALS: O2SAT 97
[2025-10-12 11:35] VITALS: BP 124/75; TEMP 98.8
--- NOTE | 2025-10-12 13:06 | Discharge Summary ---
Date of Service October 12, 2025 Admission HPI Per Admitting Provider History obtained from chart review and interview with the patient. 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 She is currently on chemotherapy. Her last HbA1c was 7.3% in February 2025. She is currently on insulin glargine 15 units at bedtime, metformin 500 mg twice a day. Patient presented to the hospital after she was found to be hypoglycemic with her blood glucose in 30s; was given D50 and D10 and transported to the ED. Her mentation and speech improved after hypoglycemia improvement. She is alert oriented x 3 at this time, she denies visual changes, weakness/numbness of any body part, chest pain, shortness of breath, abdominal pain. Admission Exam Per Admitting Provider On physical examination; Constitutional: WD/WN, vitals as above, NAD, sitting up in bed, pleasant, conversing easily Respiratory: normal respiratory effort, lungs clear to auscultation, no wheeze, rales, rhonchi. Normal insp/exp effort, no accessory muscle use Cardiovascular: RRR, no murmur, no edema Vessels: no JVD or carotid bruit Chest: normal inspection of chest Abdomen: normal bowel sounds, soft, nontender, no hepatosplenomegaly Musculoskeletal: no cyanosis or clubbing, extremities motor strength 5/5 Skin: no rashes, warm and dry normal turgor Neurologic: PERRL, EOMI, accommodation nl, no face palsy, no dysarthria CN's II- XI intact bilaterally and moves all extremities Psychiatric: A+Ox3, euthymic affect Principal Diagnosis Hypoglycemia History of pancreatic cancer on chemotherapy Hypokalemia Discharge Exam On physical examination; Constitutional: WD/WN, vitals as above, NAD, sitting up in bed, pleasant, conversing easily Respiratory: normal respiratory effort, lungs clear to auscultation, no wheeze, rales, rhonchi. Normal insp/exp effort, no accessory muscle use Cardiovascular: RRR, no murmur, no edema Vessels: no JVD or carotid bruit Chest: normal inspection of chest Abdomen: normal bowel sounds, soft, nontender, no hepatosplenomegaly Musculoskeletal: no cyanosis or clubbing, extremities motor strength 5/5 Skin: no rashes, warm and dry normal turgor Neurologic: PERRL, EOMI, accommodation nl, no face palsy, no dysarthria CN's II- XI intact bilaterally and moves all extremities Psychiatric: A+Ox3, euthymic affect Discharge Data Allergies Allergy/AdvReac Type Severity Reaction Status Date / Time almond Allergy Severe Anaphylaxis Verified 04/03/22 08:32 Penicillins AdvReac Intermediate Yeast Verified 04/03/22 08:32 infection (tongue) fiber glass Allergy Mild Rash Uncoded 04/03/22 08:32 Consultations 10/11/25 08:07 ED Decision to Admit Stat Hospital Course (1) Acute hypokalemia: (2) Pancreatic carcinoma: Plan Assessment/plan Hypoglycemia History of pancreatic cancer on chemotherapy Hypokalemia Patient presented with hypoglycemic symptoms Blood glucose of 30s on admission; Potassium of 3.1 Takes glargine 15 units at night and metformin 500 mg twice daily During the hospitalization, patient was started on D10 infusion which was gradually titrated down as her blood glucose started to improve. Her HbA1c was 5.0%. Patient had lost significant amount of weight in the last few months. We discussed stopping both metformin as well as glargine at the time of the discharge. I discussed patient to monitor her fasting blood glucose. I discussed if her fasting blood glucose continues to get elevated; consideration could be made as outpatient to start metformin. Patient's radiation treatment was continued during the hospitalization. Patient verbalized understanding. Please note the above document was generated using voice recognition software. It may contain grammatical, syntax or spelling errors. Any formal questions or concerns about the content, text or information contained within the body of this dictation should be directly addressed to the provider for clarification Total Time Total Time Spent Total Time Spent (In Minutes): 45 Total Time Includes: Examination of the Patient, Discharge Planning, Medication Reconciliation, Communication With Other Providers and Other Discharge Plan Discharge Items Patient Disposition: Home - Self-Care Reason For Visit: HYPOGLYCEMIA Discharge Diagnosis: Hypoglycemia Condition on Discharge: Fair Activity: Resume your previous activity Non-emergency contact: Primary Care Provider Call non-emergency contact if: you have any medication questions and your symptoms worsen Follow-up/Referrals: Opal Jackson PA-C [Primary Care Provider] - (Date & Time 10/17/2025 9:40 AM Provider: Angela Colon MD [facility] ) Diet: Regular Addtl Attending Provider Instructions: You were admitted to the hospital due to low blood glucose level. You are treated with medication during the hospitalization. Please stop taking metformin and glargine. Please continue to monitor fasting blood glucose daily with Dexcom available to you. If your blood glucose starts to go up more than 140; please contact your primary care doctor to restart metformin. Pending Studies at Discharge: No Stand-Alone Forms: My [facility] [employer], Smoking Cessation Medications and DC Order Prescriptions: Continued docusate sodium 100 mg capsule 100 mg PO BID PRN (Reason: Constipation) Patient Comments: 10/11- otc unable to verify amlodipine 5 mg tablet 5 mg PO DAILY ondansetron HCl 4 mg tablet 4 mg PO Q6H PRN (Reason: Nausea) potassium chloride 10 mEq tablet extended release 10 meq PO UD Rx Instructions: 20 mEq po qam; 10 mEq po pm capecitabine 500 mg tablet 500 mg PO UD capecitabine 150 mg tablet 150 mg PO UD omeprazole 20 mg capsule,delayed release(DR/EC) 20 mg PO DAILY Discontinued insulin glargine-yfgn 100 unit/mL (3 mL) insulin pen 15 unit subcut HS metformin 500 mg tablet 500 mg PO BID Discharge Orders: Discharge Order (Routine); Ordered 10/12/25 Ordered By: Justino Perry Admission Data Admit Date/Time: 10/11/25 09:05 Attending Provider: Justino Perry Admit Provider: Justino Perry Primary Care Provider: Opal Jackson Other Providers: Maximo Boudreaux
[2025-10-12] MEDS: HEPARIN SOD 5,000 UNIT/0.5 ML VIAL SQ SCH (13:45)
[2025-10-12 16:00] VITALS: PULSE 80
== END 2025-10-12 16:45 | disposition home or self-care (01) ==
LOC: 2W 07:20 → ED 07:20 → 2W 12:51